=== PATIENT | female | born 1945 | race Caucasian/White ===

== ENCOUNTER → 2023-11-05 12:51 | Outpatient (REF) | payer MEDICARE, SELFPAY | LOC: DHCBS HW 12:51 | PROVIDERS: ATTENDING PHYSICIAN Internal Medicine Cardiovascular Disease; FAMILY PHYSICIAN Physician Assistant Medical | DX: I48.0 Paroxysmal atrial fibrillation (principal); I42.8 Other cardiomyopathies | CPT/HCPCS: 93306 ==

== ENCOUNTER 2024-11-11 17:59 | Inpatient (IN) | payer MEDICARE, SELFPAY ==
[2024-11-11 13:36] VITALS: BP 150/90
--- NOTE | 2024-11-11 13:59 | ED.GENMED ---
History of Present Illness
<Angeles Bear PA-C - Last Filed: 11/11/24 16:58>
General
Chief Complaint: Abdominal Pain
Source: patient and family (Daughter and grandaguhter at bedside)
Exam Limitations: none
Time Seen by Provider: 11/11/24 13:59
Nursing documentation reviewed up to this point in time: agreed with
History of Present Illness
History of Present Illness:
79-year-old female with history atrial fibrillation, hypothyroidism presenting to the emergency department with family due to upper abdominal pain associated with nausea and vomiting over the past 24 hours. Patient reports onset of upper abdominal
discomfort yesterday late morning. She describes it as sharp pain with some radiation to her back. She describes repetitive episodes of vomiting that is brown in color. She has not noticed any blood in her vomit. Patient denies any fevers
although states she is 'very chilly '. Patient now feels that the pain is spreading into her chest. Patient denies any shortness of breath. Patient denies any urinary symptoms.
Patient has been unable to keep down any food or liquid since prior to onset of symptoms.
Patient does have a history of a bowel obstruction which states felt somewhat similar.
Past History
<Evelyn Christina MD - Last Filed: 11/11/24 15:55>
Past History
ED Past Medical History: Arrthythmia, GERD, Hypothyroidism, Other (Arthritis) and Other (Fibromyalgia)
ED Past Surgical History: Cholecystectomy, Gynecological (Tubal ligation, hysterectomy), Orthopedic (Right hand carpal bone surgery, right knee arthroscopy) and Urological (Bladder repair x2)
Social History
Tobacco: Non-smoker
Alcohol: None
Drug: None
Personal: Single
Living: alone
Review of Systems
<Angeles Bear PA-C - Last Filed: 11/11/24 16:58>
Review of Systems
Allergies reviewed?: Yes
All Other Systems: ROS reviewed and negative except as documented in HPI and ROS
Phy Exam
<Angeles Bear PA-C - Last Filed: 11/11/24 16:58>
Physical Exam
Physical Exam:
Vitals: Hypertensive and tachycardic on arrival, otherwise vital signs stable.
General: Patient is mild discomfort due to pain.
Skin: Warm and dry, no rashes or lesions
Head: Normocephalic, atraumatic
Eyes: Dry mucous membranes. Sclera nonicteric. EOMs intact. No nystagmus.
Throat: Protecting airway
Neck: Normal ROM, no cervical spine tenderness, no meningismus
Cardiac: Tachycardic, normal rhythm, no murmurs.
Pulm: Normal respiratory effort, no wheezes, rales, rhonchi heard on exam.
Abdomen: Abdomen soft. Mildly distended. Mild epigastric tenderness without rebound tenderness or guarding.
Extremities: No evidence of cyanosis or edema
Neuro: AAOx3. Grossly intact.
Psychiatric: Normal affect.
Course
<Angeles Bear PA-C - Last Filed: 11/11/24 16:58>
Orders/Labs/Results
Orders:
Orders
11/11/24 13:39
EKG [Electrocardiogram (*1)] Urgent
Reason for Study: Abdominal Pain
EKG- Treatment ONCE
11/11/24 13:44
CMP [Comprehensive Metabolic Panel] Urgent
Complete Blood Count/With Diff Urgent
Lipase Urgent
Comment: ADD ON
11/11/24 14:27
Add On- LAB Urgent
Tests Added?: lipase
Ondansetron Injectable [Zofran] 4 mg IV NOW STA
Pantoprazole [Protonix IV] 40 mg IV NOW STA
11/11/24 14:29
CT Abd/pelvis W Iv Cont Urgent
Comment: unable to tolerate PO
Reason For Exam: epigastric pain, +N/+V
11/11/24 14:33
Acetaminophen 1000MG/100Ml [Ofirmev] 1,000 mg in 100 ml IV ONCE
Acetaminophen IV Indication:: ED Narcotic Naive Pt-ONCE
11/11/24 14:38
Lactic Acid Q4H
Comment: CANCEL 2nd LACTIC ACID IF 1st LACTIC ACID IS LESS THAN 2
Troponin I Urgent
Blood Culture Q30M
EDDIE Source: Blood/Venous
Specimen Description:
Blood Culture Q30M
EDDIE Source: Blood/Venous
Specimen Description:
11/11/24 14:41
0.9% Sodium Chloride 1000 ml [Nss] 1,000 ml IV BOLUS
11/11/24 16:01
HYDROmorphone [Dilaudid] 0.25 mg IV NOW STA
11/11/24 18:30
Lactic Acid Q4H
Comment: CANCEL 2nd LACTIC ACID IF 1st LACTIC ACID IS LESS THAN 2
Abnormal Lab Results
11/11/24 11/11/24
13:44 14:38
WBC 15.6 H 10^3/uL
(4.8-10.8)
Abs Immat Gran (auto) 0.1 H 10^3/uL
(0-0.05)
Absolute Neuts (auto) 13.5 H 10^3/uL
(1.4-6.5)
Absolute Monos (auto) 0.8 H 10^3/uL
(0.1-0.6)
Neutrophils % 86.5 H %
(42.2-75.2)
Lymphocytes % 7.9 L %
(20.5-51.1)
Sodium 134 L mmol/L
(135-145)
Chloride 90 L mmol/L
(98-107)
Carbon Dioxide 31 H mmol/L
(22-30)
BUN 39 H mg/dl
(7-17)
Creatinine 1.1 H mg/dL
(0.6-1.0)
Glucose 169 H mg/dl
(70-99)
Lactic Acid 2.2 H mmol/L
(0.7-2.0)
Calcium 10.5 H mg/dl
(8.4-10.2)
Total Bilirubin 1.9 H mg/dl
(0.2-1.3)
11/11/24 13:44
11/11/24 13:44
Vital Signs
Initial and Last Documented VS:
Initial Vital Signs
Temp Pulse Resp BP Pulse Ox
98.0 F 129 18 150/90 97
11/11/24 13:36 11/11/24 13:36 11/11/24 13:36 11/11/24 13:36 11/11/24 13:36
Last Documented Vital Signs
Temp Pulse Resp BP Pulse Ox
98.0 F 95 18 157/82 100
11/11/24 13:36 11/11/24 16:34 11/11/24 16:34 11/11/24 16:34 11/11/24 16:34
<Evelyn Christina MD - Last Filed: 11/11/24 15:55>
Orders/Labs/Results
Orders:
Orders
11/11/24 13:39
EKG [Electrocardiogram (*1)] Urgent
Reason for Study: Abdominal Pain
EKG- Treatment ONCE
11/11/24 13:44
CMP [Comprehensive Metabolic Panel] Urgent
Complete Blood Count/With Diff Urgent
Lipase Urgent
Comment: ADD ON
11/11/24 14:27
Add On- LAB Urgent
Tests Added?: lipase
Ondansetron Injectable [Zofran] 4 mg IV NOW STA
Pantoprazole [Protonix IV] 40 mg IV NOW STA
11/11/24 14:29
CT Abd/pelvis W Iv Cont Urgent
Comment: unable to tolerate PO
Reason For Exam: epigastric pain, +N/+V
11/11/24 14:33
Acetaminophen 1000MG/100Ml [Ofirmev] 1,000 mg in 100 ml IV ONCE
Acetaminophen IV Indication:: ED Narcotic Naive Pt-ONCE
11/11/24 14:38
Lactic Acid Q4H
Comment: CANCEL 2nd LACTIC ACID IF 1st LACTIC ACID IS LESS THAN 2
Troponin I Urgent
Blood Culture Q30M
EDDIE Source: Blood/Venous
Specimen Description:
Blood Culture Q30M
EDDIE Source: Blood/Venous
Specimen Description:
11/11/24 14:41
0.9% Sodium Chloride 1000 ml [Nss] 1,000 ml IV BOLUS
11/11/24 16:01
HYDROmorphone [Dilaudid] 0.25 mg IV NOW STA
11/11/24 18:30
Lactic Acid Q4H
Comment: CANCEL 2nd LACTIC ACID IF 1st LACTIC ACID IS LESS THAN 2
Abnormal Lab Results
11/11/24 11/11/24
13:44 14:38
WBC 15.6 H 10^3/uL
(4.8-10.8)
Abs Immat Gran (auto) 0.1 H 10^3/uL
(0-0.05)
Absolute Neuts (auto) 13.5 H 10^3/uL
(1.4-6.5)
Absolute Monos (auto) 0.8 H 10^3/uL
(0.1-0.6)
Neutrophils % 86.5 H %
(42.2-75.2)
Lymphocytes % 7.9 L %
(20.5-51.1)
Sodium 134 L mmol/L
(135-145)
Chloride 90 L mmol/L
(98-107)
Carbon Dioxide 31 H mmol/L
(22-30)
BUN 39 H mg/dl
(7-17)
Creatinine 1.1 H mg/dL
(0.6-1.0)
Glucose 169 H mg/dl
(70-99)
Lactic Acid 2.2 H mmol/L
(0.7-2.0)
Calcium 10.5 H mg/dl
(8.4-10.2)
Total Bilirubin 1.9 H mg/dl
(0.2-1.3)
11/11/24 13:44
11/11/24 13:44
Vital Signs
Initial and Last Documented VS:
Initial Vital Signs
Temp Pulse Resp BP Pulse Ox
98.0 F 129 18 150/90 97
11/11/24 13:36 11/11/24 13:36 11/11/24 13:36 11/11/24 13:36 11/11/24 13:36
Last Documented Vital Signs
Temp Pulse Resp BP Pulse Ox
98.0 F 95 18 157/82 100
11/11/24 13:36 11/11/24 16:34 11/11/24 16:34 11/11/24 16:34 11/11/24 16:34
<Angeles Bear PA-C - Last Filed: 11/11/24 16:58>
MDM/Problems Addressed
Differential Diagnosis Includes:
Not limited to: Gastritis, pancreatitis, bowel obstruction, peptic ulcer, gastric ulcer, etc.
MDM/Problems Addressed:
79-year-old female with epigastric abdominal pain associate with nausea/vomiting beginning yesterday. No fevers. Patient initially hypertensive and tachycardic on arrival although improved by my assessment. On exam�patient is holding emesis bag
with infrequent vomiting which is brown in color. Abdomen is soft, mildly distended with tenderness in epigastric region. No rebound tenderness or guarding. Cardio/pulmonary assessment unremarkable. Patient appears dry although is perfusing
well. Differential broad although concern for possible bowel obstruction given patient history and presentation today. Other consideration include gastritis, pancreatitis, gastric/peptic ulcer. Lower suspicion for cardiac etiology including ACS
although given report of chest discomfort will send troponin. Will check labs, lactic, lipase, abdomen/pelvis CT with IV contrast. Will give IV fluids and treat pain. Anticipate admission
Update: Labs reviewed. Leukocytosis of 15.6. Chemistry shows mild renal insufficiency on labs and dehydration likely secondary to hypovolemia and GI losses. Initial lactic of 2.2. Troponin 0.015 and noted. Do not suspect ACS. Vital signs have
normalized. CT pending.
Update 4:40 PM: CT report reviewed which shows small bowel obstruction. On reassessment�patient appears relatively well-appearing with very minimal vomiting in department. Do not feel NG tube is indicated at this time. Vital signs have normalized
and she is hemodynamic stable. Ultimately�patient will require admission to hospital. Patient accepted to hospital service in stable condition.
Chronic conditions affecting care:
History of bowel obstruction
Acute Exacerbation and/or Progression of Chronic Illness:
Small bowel obstruction
<Angeles Bear PA-C - Last Filed: 11/11/24 16:58>
*Radiology
Radiology exam reviewed: preliminary read by ED provider (CT reviewed by ne-distention of stomach and bowel loops concerning for small bowel obstruction) and radiology read reviewed
*Pulse Oximetry
Patient hypoxic: no
*EKG
Interpreted by ED Provider?: Yes
EKG Intrepretation Date: 11/11/24
Interpretation: abnormal
Comparison EKG: changes noted
Heart Rate: 125
Rate: tachycardiac
Rhythm: sinus
[place]: normal axis
Interval: normal QT interval
QRS Pattern: left vent hypertrophy
Ischemia: non-specific ST changes
*Gelatin Plant Supervisor Interpretation
Rate: Gelatin Plant Supervisor- N/A
*Critical Care Note
Total Time (30-74mins, 75-104mins- exclusive of procedures): Not Applicable
<Angeles Bear PA-C - Last Filed: 11/11/24 16:58>
Patient Management
Discussion with other providers: Hospitalist
Escalation/DeEscalation of care consider admission/obs:
Admit for small bowel obstruction, fluid resuscitation
ED Attending Note
<Evelyn Christina MD - Last Filed: 11/11/24 15:55>
ED Attending Note
Patient seen and examined by attending physician: Yes
I performed the substantive portion of visit, reviewed & personally made and approve the management plan that is documented in note by myself or YANELIS.: Yes
ED Attending Note:
patient is breathing comfortably and appears nontoxic but still can tenderness of upper abdomen. Awaiting Ct report
-
Portions of this chart may have been created with voice recognition software.� Occasional wrong word or��sound alike� substitutions may have occurred due to the inherent limitations of voice recognition software.
Discharge Plan
Departure
Patient Disposition: Admit
Date of Disposition: 11/11/24
Time of Disposition: 16:47
Presentation/result/management discussed w/ accepting MD/DO: Hospitalist
Discharge Problem:
SBO (small bowel obstruction)
Prescriptions:
No Action
aspirin 81 MG tablet,delayed release (DR/EC)
81 mg PO DAILY
atorvastatin [Lipitor] 40 mg Tablet
40 mg PO QPM
pantoprazole [Protonix] 40 mg Tablet,Delayed Release (Dr/Ec)
40 mg PO DAILY
cyanocobalamin (vitamin B-12) 1,000 mcg Capsule
1,000 mcg PO DAILY
donepezil [Aricept] 5 mg Tablet
5 mg PO HS
melatonin 3 mg Tablet
3 mg PO HS
sulfamethoxazole-trimethoprim [Bactrim DS] 800-160 mg tablet
1 tab PO BID 3 Days Qty: 6 0RF
levothyroxine 88 mcg tablet
88 mcg PO DAILY
mirtazapine 30 mg tablet
30 mg PO HS
metoprolol succinate 25 mg tablet extended release 24 hr
75 mg PO Q12H
Entresto 24-26 mg tablet
1 tab PO BID
phenazopyridine [Pyridium] 200 mg tablet
200 mg PO TID PRN (Reason: Urinary Pain)
Referrals:
Melida Ontiveros PA-C [Family Provider] -
Interventions
Interventions:
*Risk Screen - Suicide Last Done: 11/11/24 13:36
*General Assessment Last Done: 11/11/24 13:36
*ED COVID-19 Vaccine History Last Done: 11/11/24 13:36
Discharge Date and Time
Print Language: SWAZI
[2024-11-11 14:06] LABS: % Basophils 0.3 % (0-2); % Immature Granulocytes 0.4 % (0-0.5); % Lymphocytes 7.9 % (20.5-51.1); % Monocytes 4.9 % (1.7-9.3); % Neutrophils 86.5 % (42.2-75.2); Absolute Immature Granulocytes 0.1 10^3/uL (0-0.05); Absolute Lymphocytes 1.2 10^3/uL (1.2-3.4); Absolute Monocytes 0.8 10^3/uL (0.1-0.6); Absolute Neutrophils 13.5 10^3/uL (1.4-6.5); Hematocrit 44.3 % (37.0-47.0); Hemoglobin 14.9 g/dL (12.0-16.0); Mean Corp Hgb Conc. 33.6 g/dL (33.0-37.0); Mean Corpuscular Hgb 29.5 pg (27.0-31.0); Mean Corpuscular Volume 87.7 fL (81.0-99.0); Mean Platelet Volume 10.4 fL (7.4-10.4); Nucleated Red Blood Cells % 0 %; Platelet Count 324 10^3/uL (130-400); Red Blood Cell Count 5.05 10^6/uL (4.20-5.40); Red Cell Dist. Width 12.6 % (11.5-14.5); White Blood Cell Count 15.6 10^3/uL (4.8-10.8)
[2024-11-11 14:12] LABS: ALT (SGPT) 32 U/L (0-35); AST (SGOT) 35 U/L (14-36); Albumin 4.9 g/dl (3.5-5.0); Alkaline Phosphatase 98 U/L (38-126); Blood Urea Nitrogen 39 mg/dl (7-17); Calcium 10.5 mg/dl (8.4-10.2); Carbon Dioxide 31 mmol/L (22-30); Chloride 90 mmol/L (98-107); Glucose 169 mg/dl (70-99); Sodium 134 mmol/L (135-145); Total Bilirubin 1.9 mg/dl (0.2-1.3); Total Protein 8.2 g/dl (6.3-8.2); eGFR 50.48
[2024-11-11] MEDS: ZOFRAN 4 MG IV (14:44)
[2024-11-11] MEDS: OFIRMEV 100 IV (14:44)
[2024-11-11] MEDS: PROTONIX IV 40 MG IV (14:44)
[2024-11-11] MEDS: NSS 1000 IV ×2 (15:09→21:41)
[2024-11-11 15:29] LABS: Lactic Acid 2.2 mmol/L (0.7-2.0)
[2024-11-11 15:33] LABS: Lipase 134 U/L (23-300)
[2024-11-11 15:47] LABS: Troponin I 0.015 ng/ml
[2024-11-11] MEDS: DILAUDID 0.25 MG IV (16:04)
[2024-11-11 16:34] VITALS: BP 157/82
--- NOTE | 2024-11-11 16:56 | HPS.HSE ---
Family Physician
-
Family Physician: Melida Ontiveros PA-C
Chief Complaint
-
abdominal pain
History of Present Illness
Patient is a 79-year-old female with past medical history significant for hypertension, atrial fibrillation, CAD, hypothyroidism and GERD who presented to [facility] ED for evaluation of abdominal pain associated with nausea and vomiting.
Patient reports that she started with abdominal discomfort yesterday that led to poor appetite and nausea with emesis yesterday afternoon. She reports 2 BMs yesterday one small and one large with soft formed stool. Patient reports pain today
increased in the midupper abdomen and was severe. She does not report anything that aggravates or alleviates symptoms. Patient denies any fever, chills, cough, chest pain, constipation, diarrhea or urinary symptoms.
Medical History
Past Medical History
Past Medical History: Reports Other
Additional Past Medical History:
benign hypertension
paroxysmal atrial fibrillation
CAD
hyperlipidemia
hypothyroidism
GERD
Hx small bowel obstruction
Past Surgical History: Reports Other
Additional Past Surgical History:
bladder x2
right knee orthoscopic meniscus removal
hysterectomy
carpal tunnel surgery right hand
cholecystectomy
tubal ligation
bowel obstruction
Social History
Tobacco: Former Smoker
Alcohol: None
Drug: None
Living: Alone (granddaughter comes as paid aide daily to assist with ADLs)
Employment: Retired
Family History
Family History: Unable to Obtain
Allergies / Home Medications
Allergies reflects when Allergies were last updated in [employer].
Home Medications with original date entered in [employer]
Allergy/Medication List:
Allergies
Allergy/AdvReac Type Severity Reaction Status Date / Time
haloperidol [From Haldol] Allergy elevated Verified 11/11/24 13:38
heart rate
morphine Allergy Hallucinati Verified 11/11/24 13:38
ons
Home Medications
aspirin 81 mg tablet,delayed release 81 mg PO DAILY 11/21/15
atorvastatin 40 mg tablet (Lipitor) 40 mg PO QPM 06/02/23
cyanocobalamin (vitamin B-12) 1,000 mcg capsule 1,000 mcg PO Q48H 06/02/23
pantoprazole 40 mg tablet,delayed release (Protonix) 40 mg PO DAILY 06/02/23
levothyroxine 88 mcg tablet 88 mcg PO DAILY 06/03/23
Antifungal 1 applic topical DAILYPRN PRN under breasts/behind ear 11/11/24
Lactobac no.2-Bifidobac no.1-S. thermo 112.5 billion cell capsule (Visbiome) 1 cap PO DAILY 11/11/24
cholecalciferol (vitamin D3) 25 mcg (1,000 unit) tablet (Vitamin D3) 25 mcg PO DAILY 11/11/24
clonazepam 0.5 mg tablet 0.5 mg PO BID 11/11/24
d-mannose 500 mg capsule 500 mg PO BID 11/11/24
gabapentin 300 mg capsule 300 mg PO HS 11/11/24
metoprolol succinate 100 mg tablet,extended release 24 hr 100 mg PO BID 11/11/24
peg 400-propylene glycol (PF) 0.4 %-0.3 % eye drops in a dropperette (Systane (PF)) 1 drp BOTH EYES BID 11/11/24
sacubitril 49 mg-valsartan 51 mg tablet (Entresto) 1 tab PO BID 11/11/24
venlafaxine 37.5 mg capsule,extended release 24 hr 37.5 mg PO HS 11/11/24
venlafaxine 75 mg capsule,extended release 24 hr 75 mg PO HS 11/11/24
vibegron 75 mg tablet (Gemtesa) 75 mg PO DAILY 11/11/24
Review of Systems
-
History Source: Patient
Constitutional: Reports No Symptoms
EENT: Reports No Symptoms
Respiratory: Reports No Symptoms
Cardiac: Reports No Symptoms
Abdomen/GI: Reports Abdominal Pain, Nausea and Vomiting
: Reports No Symptoms
Musculoskeletal: Reports No Symptoms
Skin: Reports No Symptoms
Neurological: Reports No Symptoms
Endocrine: Reports No Symptoms
Hematologic/Lymphatic: Reports No Symptoms
Psych: Reports No Symptoms
Physical Exam
Vital Signs
Vital Signs
Temp Pulse Resp BP Pulse Ox
98.0 F 95 18 157/82 100
11/11/24 13:36 11/11/24 16:34 11/11/24 16:34 11/11/24 16:34 11/11/24 16:34
Physical Exam
General: Well Developed, Well Nourished, No Apparent Distress, Conversant and Pain
HEENT: NormoCephalic, Moist mucous membranes, Atraumatic, [place] Conjunctivae, Nose Appears Normal and Ears Appear Normal
Respiratory: Clear, Non Labored Respirations and Decreased Breath Sounds
Cardiac: S1/S2 and Regular Rhythm; No Murmur, Rub or Gallop
GI: Soft, Tender and Distended; No Organomegaly
Rectal: Deferred by Provider
Genito-urinary: Deferred by me
Musculoskeletal: No Clubbing, No Cyanosis and No Edema
Skin: Warm and IV/Catheter Site; No Rash
Neuro: Awake, Alert and Nonfocal/grossly intact
Psych: Calm
Laboratory Results
-
11/11/24 13:44
11/11/24 13:44
Laboratory Results
Lactic Acid 2.2 mmol/L (0.7-2.0) H 11/11/24 14:38
Total Bilirubin 1.9 mg/dl (0.2-1.3) H 11/11/24 13:44
AST 35 U/L (14-36) 11/11/24 13:44
ALT 32 U/L (0-35) 11/11/24 13:44
Alkaline Phosphatase 98 U/L (38-126) 11/11/24 13:44
Troponin I 0.015 ng/ml 11/11/24 14:38
Lipase 134 U/L (23-300) 11/11/24 13:44
Data Reviewed
-
CT Scan: Report Reviewed by me (Abd/Pelvis: Small bowel obstruction. Uncertain etiology. Suggest a transition in the midline/right para midline mid to lower anterior abdomen. Mild distal esophageal wall thickening. Possible esophagitis.)
Lab Data: Labs Reviewed by me (WBC 15.6, BUN 39, Creat 1.1, Lactic 2.2, )
Impression/Plan
-
IMPRESSION/PLAN:
#small bowel obstruction
abdominal pain, nausea and vomiting x2 days
Abd/Pelvis CT: Small bowel obstruction. Uncertain etiology. Suggest a transition in the midline/right para midline mid to lower anterior abdomen.
Mild distal esophageal wall thickening. Possible esophagitis.
- admit to med/surg
- NPO
- IVF
- consult surgery
- consider NGT
#acute kidney injury
BUN 39, Creat 1.1
- javon IVF
#benign hypertension
- continue metoprolol
#paroxysmal atrial fibrillation
EKG: SINUS TACHYCARDIA
LEFT VENTRICULAR HYPERTROPHY WITH REPOLARIZATION ABNORMALITY ( Janneth Larry )
- continue metoprolol
#CAD
#hyperlipidemia
- continue aspirin, and atorvastatin
#HFrEF
- continue Entresto
- daily weights
#hypothyroidism
- continue levothyroxine
#GERD
- continue pantoprazole
#anxiety/depression
- continue clonazepam and venlafaxine
#overactive bladder
- continue vibegron
Code status: Full code
DVT Prophylaxis: SCDs
--- NOTE | 2024-11-11 17:27 | W.PN.UPDATE ---
Update Note
Progress Note Update
This is an addendum to H&P written by FITNESS TECHNICIAN Jordyn Gallegos
I saw and examined the patient.
The FITNESS TECHNICIAN's note was reviewed and I agree with the note.
Comment:
Ms. Alcon Aguilar is a 79 yo woman with hx atrial fibrillation, HFmrEF, GERD, who presents to the ER with upper abdominal pain associated with nausea and vomiting.
Triage VS: T 98, P 129, RR 18, BP 150/90, SpO2 97%
On exam patient is awake, alert, in no distress. Chest clear. Abdomen with mild tenderness, distention, no rebound/guarding. No LE swelling
LABS: WBC 15.6, Hg 14.9, PLT 324, Na 134, K+ 4.0, Cl 90, BUN 39, Cr 1.1, Glucose 169, Lactate 2.2, Ca 10.5, T. Bili 1.9, AST 35, ALT 32, Trop 0.015
CT:
IMPRESSION:
Small bowel obstruction. Uncertain etiology. Suggest a transition in the midline/right para midline mid to lower anterior abdomen.
Mild distal esophageal wall thickening. Possible esophagitis.
Small Bowel Obstruction
-admit to telemetry
-NPO, IVF
-NGT if nausea worsens
-IV Zofran PRN
-GS consult
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
-not on diuretics at home
-gentle IVF, monitor volume status closely
-POLE TRUCK DRIVER Regimen: Entresto, Metop XL
Lactic Acidosis
-IVF as above, trend
CASPER
-IVF as above
Paroxysmal Afib
-not on AC
-continue POLE TRUCK DRIVER Metoprolol
Anxiety/Depression - POLE TRUCK DRIVER REgimen
remainder of plan per FITNESS TECHNICIAN note
[2024-11-11] MEDS: COMPAZINE 5 MG IV (18:42)
[2024-11-11 19:22] VITALS: BP 163/85
[2024-11-11 20:49] VITALS: BMI 27.0
[2024-11-11 21:00] VITALS: BP 155/102; BMI 27.8
[2024-11-11] MEDS: ENTRESTO 49 MG/51 MG 1 TAB PO (21:16)
[2024-11-11] MEDS: TOPROL XL 100 MG PO (21:16)
[2024-11-11] MEDS: KLONOPIN 0.5 MG PO (21:16)
[2024-11-11] MEDS: LIPITOR 40 MG PO (21:16)
[2024-11-11] MEDS: EFFEXOR XR 75 MG PO (21:17)
[2024-11-11] MEDS: EFFEXOR XR 37.5 MG PO (21:17)
[2024-11-11] MEDS: NEURONTIN 300 MG PO (21:17)
[2024-11-11] MEDS: REFRESH EYE DROPS (PF) 1 DROPS BOTH EYES (21:17)
[2024-11-11 21:22] VITALS: BMI 27.8
[2024-11-11] MEDS: DESENEX/MITRAZOL/ZEASORB 1 APPLIC TOPICAL (21:58)
[2024-11-11] MEDS: CHLORASEPTIC/SORE THROAT SPRAY 1 SPRAY PO (22:10)
[2024-11-11 22:21] LABS: Lactic Acid 0.9 mmol/L (0.7-2.0)
[2024-11-11] MEDS: NSS 500 IV (23:42)
[2024-11-12] VITALS (19 sets, daily range): BP systolic 83–151; BP diastolic 49–93
--- NOTE | 2024-11-12 00:06 | PTCARENOTE ---
Patient arrived to unit from ED via stretcher. Pt. pulled over from stretcher to bed in room 337-1 on . Patient with c/o nausea and brown emesis. NGT order noted. Patient initially refused. LAYLA Chen notified. LAYLA came to floor to
discuss NGT with patient. Patient continued to refuse. Patient continued to vomit brown colored emesis. Patient now agreeable to NGT. NGT placed with immediate drainage of 300 mL brown output. Patient tolerated NGT placement. Oriented to unit. Call
rubio within reach. Plan of care ongoing.
[2024-11-12] MEDS: DILAUDID 0.25 MG IV ×3 (03:22→21:04)
[2024-11-12] MEDS: SYNTHROID 88 MCG PO (05:36)
[2024-11-12] MEDS: CHLORASEPTIC/SORE THROAT SPRAY 1 SPRAY PO (05:36)
[2024-11-12 06:28] LABS: Hematocrit 39.6 % (37.0-47.0); Hemoglobin 13.5 g/dL (12.0-16.0); Mean Corp Hgb Conc. 34.1 g/dL (33.0-37.0); Mean Corpuscular Hgb 29.7 pg (27.0-31.0); Mean Platelet Volume 10.8 fL (7.4-10.4); Platelet Count 299 10^3/uL (130-400); Red Blood Cell Count 4.55 10^6/uL (4.20-5.40); Red Cell Dist. Width 12.8 % (11.5-14.5); White Blood Cell Count 12.4 10^3/uL (4.8-10.8)
[2024-11-12 06:49] LABS: Blood Urea Nitrogen 42 mg/dl (7-17); Calcium 9.7 mg/dl (8.4-10.2); Carbon Dioxide 27 mmol/L (22-30); Chloride 96 mmol/L (98-107); Estimated Creatinine Clearance 39 ml/min; Glucose 107 mg/dl (70-99); Potassium 4.3 mmol/L (3.5-5.1); Sodium 135 mmol/L (135-145)
[2024-11-12] MEDS: PROTONIX 40 MG PO (07:44)
[2024-11-12] MEDS: TOPROL XL 100 MG PO (07:44)
[2024-11-12] MEDS: VITAMIN D3 (cholecalciferol) 25 MCG PO (07:44)
[2024-11-12] MEDS: REFRESH EYE DROPS (PF) 1 DROPS BOTH EYES ×2 (07:44→19:18)
[2024-11-12] MEDS: KLONOPIN 0.5 MG PO (07:44)
[2024-11-12] MEDS: VITAMIN B-12 1000 MCG PO (07:44)
[2024-11-12] MEDS: DESENEX/MITRAZOL/ZEASORB 1 APPLIC TOPICAL ×2 (07:45→19:57)
[2024-11-12] MEDS: ASPIR LOW (ENTERIC COATED) 81 MG PO (07:45)
[2024-11-12] MEDS: VISBIOME 1 CAP PO (07:45)
[2024-11-12] MEDS: ENTRESTO 49 MG/51 MG PO (08:32)
[2024-11-12] MEDS: LOPRESSOR 5 MG IV ×4 (08:40→23:25)
[2024-11-12] MEDS: NSS 1000 IV ×2 (10:10→16:21)
--- NOTE | 2024-11-12 10:22 | CON.CAR ---
Addendum entered and electronically signed by Lamont Ortega MD 11/12/24 11:11:
79 yo woman with Hx of NICM with improved EF, now with SBO and AF with RVR.
Documentation truncated due to failure of Dragon.
Agree with findings of MB below. Data, exam, independently reviewed and confirmed by me
ECG AF with RVR, aberrancy, AL and inf ST depression - check troponin
Rx with IV heparin, amio IV. NSS bolus.
Eventual DOAC and oral rate control agents if needed, probably oral amio.
If needed add IV diltiazem and add phenylephrine if hypotensive
Await surgical eval.
Check echo
Original Note:
Consultation
Consultation Request
Date/Time Consultation Performed: 11/12/24
Requesting Provider: Dr. Pedro
Performing Provider: Alejandrina Powell PA-C for Dr. ALIYAH Ortega
Reason for Consultation: afib with RVR
Medical History
-
Chief Complaint: abd pain
History of Present Illness:
Patient is an 79 yo F with PMH of NICM with improved EF to 45% by echo 10/2023, PAF not on OAC due to prior low burden and fall risk, GERD, asthma, HLD, HTN who presented to due to abd pain which started evening of 11/10. She also reports several
episodes of brown colored vomit. She reports a history of SBO years ago. She has history of hysterectomy, tubal ligation, and cholecystectomy in past. She had CTAP which showed SBO. NGT was placed around 4AM. Around 8:30AM was noted to go into afib
with RVR, HRs close to 200BPM at times. Patient reports no feelings of palpitations, CP, SOB. Cardiology consulted for urgent evaluation.
PMH:
NICM with improved EF to 45% by echo 10/2023
PAF not on OAC due to prior low burden and fall risk
Coronary artery calcifications by imaging
GERD
asthma
HTN
HLD
Hypothyroidism
Mild dementia
History of chronic UTIs
History of SBO s/p KATE
Past Medical History
Past Medical History: Other (in HPI)
Social History
Tobacco: Former Smoker
Alcohol: None
Living: Alone
Family History
Family History: CAD and Cancer
Allergies / Home Medications
Allergy/AdvReac Type Severity Reaction Status Date / Time
haloperidol [From Haldol] Allergy elevated Verified 11/11/24 13:38
heart rate
morphine Allergy Hallucinati Verified 11/11/24 13:38
ons
�Medication �Instructions �Recorded �Confirmed �Type
aspirin 81 mg tablet,delayed 81 mg PO DAILY 11/21/15 11/11/24 History
release
atorvastatin 40 mg tablet (Lipitor) 40 mg PO QPM 06/02/23 11/11/24 History
cyanocobalamin (vitamin B-12) 1,000 mcg PO Q48H 06/02/23 11/11/24 History
1,000 mcg capsule
pantoprazole 40 mg tablet,delayed 40 mg PO DAILY 06/02/23 11/11/24 History
release (Protonix)
levothyroxine 88 mcg tablet 88 mcg PO DAILY 06/03/23 11/11/24 History
Antifungal 1 applic topical DAILYPRN PRN 11/11/24 11/11/24 History
under breasts/behind ear
Lactobac no.2-Bifidobac no.1-S. 1 cap PO DAILY 11/11/24 11/11/24 History
thermo 112.5 billion cell capsule
(Visbiome)
cholecalciferol (vitamin D3) 25 25 mcg PO DAILY 11/11/24 11/11/24 History
mcg (1,000 unit) tablet (Vitamin
D3)
clonazepam 0.5 mg tablet 0.5 mg PO BID 11/11/24 11/11/24 History
d-mannose 500 mg capsule 500 mg PO BID 11/11/24 11/11/24 History
gabapentin 300 mg capsule 300 mg PO HS 11/11/24 11/11/24 History
metoprolol succinate 100 mg 100 mg PO BID 11/11/24 11/11/24 History
tablet,extended release 24 hr
peg 400-propylene glycol (PF) 0.4 1 drp BOTH EYES BID 11/11/24 11/11/24 History
%-0.3 % eye drops in a dropperette
(Systane (PF))
sacubitril 49 mg-valsartan 51 mg 1 tab PO BID 11/11/24 11/11/24 History
tablet (Entresto)
venlafaxine 37.5 mg 37.5 mg PO HS 11/11/24 11/11/24 History
capsule,extended release 24 hr
venlafaxine 75 mg capsule,extended 75 mg PO HS 11/11/24 11/11/24 History
release 24 hr
vibegron 75 mg tablet (Gemtesa) 75 mg PO DAILY 11/11/24 11/11/24 History
Review of Systems
-
History Source: Patient
All other systems: Negative unless noted
Physical Exam
Vital Signs
Temp Pulse Resp BP Pulse Ox
98.6 F 108 18 116/49 95
11/12/24 08:43 11/12/24 08:43 11/12/24 08:43 11/12/24 08:43 11/12/24 08:43
GEN: No distress, awake, alert, oriented x3. NGT in place
HEENT: supple, anicteric, mmm, eomi
LUNGS: CTA B/L, no wheezes/rales
CV: Irreg irreg, S1/S2, no murmur
ABD: soft, mild tenderness to palpation
EXT: No cyanosis, clubbing, edema
NEURO: Gross non-focal
SKIN: Warm, pink, dry. No rash
Lab Results
11/12/24 05:52
11/12/24 05:52
Troponin I 0.015 ng/ml 02/13/25 14:38
Impression / Plan
-
Primary [employer]: Dr. ALIYAH Ortega
Assessment:
Presentation with abd pain, vomiting
SBO
PAF with RVR
Relative hypotension associated with above
NICM with improved EF to 45% by echo 10/2023
PAF not on OAC due to prior low burden and fall risk
Coronary artery calcifications by imaging
GERD
asthma
HTN
HLD
Hypothyroidism
Mild dementia
History of chronic UTIs
History of SBO s/p KATE
ECHO 10/2023: EF 46%, mild global hypokinesis, grade 1 diastolic dysfunction
Plan:
-Patient presents with abd pain and vomiting and found by CTAP to have SBO. NGT in place. awaiting surgical evaluation
-around 8:30AM was noted to go into afib with RVR on tele. rates remain rapid despite several doses of IV lopressor and with relative hypotension. patient asymptomatic
-cardiology asked to see patient urgently. planned for transfer to IMU
-will give IV amiodarone 150cc bolus and start IV amio gtt
-[id number] score of 4 for age, female, HTN. previously was not on OAC due to low afib burden and fall risk. will start IV heparin and will likely need transition to OAC given episode
-will also give 500cc IVF bolus and follow BPs
-last echo from 10/2023 as above, consider repeating when HRs improved
-prior imaging with evidence of coronary calcifications and EKG in rapid afib with inferior, and anterolateral ST depressions. no CP. would consider OP stress testing.
-d/w nursing, hospitalist.
Data Reviewed
-
EKG: Tracing Personally Visualized and interpreted
CT Scan: Report Reviewed by me
Medical Tests (Nuc Med, Echo etc): Report Reviewed by me
Labs: Labs Reviewed by me
Old Records: Reviewed
--- NOTE | 2024-11-12 10:36 | W.PN.HOSP.TC ---
Today's Communication/Plan
-
see outlined plan
Assessment / Plan
Assessment / Plan
Assessment:
acute small bowel obstruction
Lactic acidosis from bowel obstruction
- CT: Small bowel obstruction. Uncertain etiology. Suggest a transition in the midline/right para midline mid to lower anterior abdomen.
- NPO, IVF
- pain control, anti-emetics
- NGT placed 2/14 AM for recurrent vomiting
- GS consulted
Parox A.fib with RVR
- likely related to acute illness, lack of oral BB. Electrolytes ok
- marginal BPs; stop IV Lopressor as patient unstable BP and HRs >200
- Amio bolus + Amiodarone drip ordered urgently
- IV heparin started - requires intensive monitoring of PTTs. noted not on AC long-term due to prior assessment of falls
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
- s/p IV Bolus and now in maintenance
- monitor volume status closely
- holding GDMT (NPO): Metoprolol and Entresto
CAD
HLD
- hold ASA/Statin
Essential HTN
- marginal BP in setting of Afib; holding Metoprolol and Entresto
CASPER
- improved with IVF, monitor labs
Anxiety/Depression
- holding Clonazepam/Venlafaxine
hypothyroidism - oral replacement on hold, may need IV
GERD
- IV PPI
DVT ppx: IV Heparin
Code: Full
Total Critical Care Time 45 minutes. I was immediately available to the patient and staff. I personally examined, reviewed labs, diagnostic images/reports, interpretations, treatment plans, discussed patient care with other providers and family
or caregivers (if patient is unable to make decisions), entered orders as appropriate and documented the medical record.
Anticipated Discharge: > 48 hours
Subjective/Interval History
-
Date of Service: November 12, 2024
NG tube placed this morning
now in Rapid Afib - marginal BPs. asymptomatic without CP, SOB, palps
Urgent Cardiology evaluation with initiation of IV Heparin, IV Amiodarone and IVF
Objective Data
-
Labs:
Laboratory Results
11/12/24 11/12/24
05:52 10:11
WBC 12.4 H
Hgb 13.5
Hct 39.6
Plt Count 299
APTT Pending
Sodium 135
Potassium 4.3
Chloride 96 L
Carbon Dioxide 27
BUN 42 H
Creatinine 1.0
Glucose 107 H
Calcium 9.7
Vital Signs:
Vital Signs
Temp Pulse Resp BP Pulse Ox
98.6 F 108 18 116/49 95
11/12/24 08:43 11/12/24 08:43 11/12/24 08:43 11/12/24 08:43 11/12/24 08:43
I&O
11/11/24 11/12/24 11/13/24
06:59 06:59 06:59
Output Total 1600 / 1600
Balance -1600 / -1600
Physical Exam
-
General: No Apparent Distress
HEENT: Normocephalic, Atraumatic and Other (+NGT)
Respiratory: Clear to Auscultation; Negative Wheezes
Cardiac: Irregular Rhythm and Tachycardic
GI: Nontender and Distended
Genito-urinary: No Costovertebral Tender
Neuro: AO x 3
Psych: Calm
Data Reviewed
-
Critical Care Time (in minutes): 45
Labs: Labs Reviewed by me
[2024-11-12] MEDS: NSS 500 IV (10:45)
[2024-11-12] MEDS: CORDARONE 103 MG IV (11:01)
[2024-11-12] MEDS: CORDARONE 518 MG IV (11:15)
--- NOTE | 2024-11-12 11:25 | CM ---
Pt seen bedside. Initial assessment completed. Admitted for abdominal pain. Pt transferred to IMU.
Pt lives alone in a second flt apartment- no elevators. Pt's granddaughter helps pt every day, Friday-Friday from 6:30am-3:30 pm. Pt's granddaughter assists pt w/ meals throughout the day, light housekeeping and exercises. Pt uses a walker to
ambulate, pt has an emergency alert necklace that she does not wear but is encouraged to do so by her daughters.
Pt prev was at [facility] about 7-9 years ago, pt has VN/PT in the past, doesn't recall the provider.
Address, points of contact and insurance verified
PCP: Dr. Mata
Pharmacy: [facility]
Plan: CM will cont to follow hospital course
--- NOTE | 2024-11-12 11:27 | TRANSFER ---
Rec'd pt from 3W. arrived to IMU with A fib, RVR HR 180s to 200s. Hypotensive. MD aware. HR responded to amio bolus with improved rate 140s. bolus infusing. Heparin drip ordered. Pt anxious but responds to education efforts. Placed on 2L NC for O2
sats 89% on RA.
--- NOTE | 2024-11-12 11:28 | PTCARENOTE ---
pt PO meds dc'd by Dr. Pedro, IV med orders placed, order to place pt on tele. pt placed on tele at 8:30, pt immediately found to be in afib RVR hr in the 180s-200s. This nurse notified pharmacist to have meds approved, Dr. Pedro made aware via tt
by pharmacist about current HR and rhythm. 1x dose of 5mg metoprolol IV administered, hr reached 147 at the lowest and climbed back up to 160s-210s within an hour, pt still afib RVR on the monitor. ordered second dose of 5mg Lopressor IV,
this nurse went to administer but pt bp was found to be 96/83 automatic. attempted to get a manual bp, this nurse and another nurse were unsuccessful, unable to hear anything. Dr. Pedro made aware via tt, Dr. Pedro responded and came to see pt at
the bedside. Okay to give 2nd dose of Lopressor per Dr. Pedro. administered. cardiology seen pt at the bedside. pt transferred to U [id number], report given to nurse prior to taking pt to unit. Pt transferred by this nurse and eleonora Whiting pt placed on
code cart monitor for transfer, IV fluid bolus running.
[2024-11-12 11:43] LABS: APTT 28.4 Sec (23.4-35.0)
[2024-11-12] MEDS: HEPARIN 25000 UNITS/250 ML IV (11:48)
--- NOTE | 2024-11-12 13:25 | CON.GS ---
Addendum entered and electronically signed by Curt Jacques MD 11/12/24 14:02:
Okay for anticoagulation, appreciate IV heparin drip. Please do not use long-acting anticoagulation until surgery signs off as she may need to be taken to the OR.
Original Note:
Consultation
-
Date/Time Consultation Requested: 11/11/2024 at 5 PM
Date/Time Consultation Performed: 11/12/2024 at 8 AM
Requesting Provider: Hospitalist
Performing Provider: Dr. Jacques
Reason for Consultation: Small bowel obstruction
Medical History
-
Chief Complaint: Abdominal pain, nausea vomiting
History of Present Illness:
This is an 79-year-old female with a history significant for atrial fibrillation not on anticoagulation, CAD, hypothyroidism, GERD, mini, post and previous bowel obstructions. The patient is a poor historian but states that she started having
abdominal discomfort yesterday which led to a poor appetite and nausea as well as emesis yesterday afternoon. She states that her pain has improved since placement of the NG tube. The patient denies Fever, Chest Pain, Shortness Of Breath, changes
in urinary and bowel habits, unintentional weight loss.
Past Medical History
Past Medical History: Other (Atrial fibrillation, CAD, hypertension, hyperlipidemia, hypothyroidism, GERD, SBO)
Past Surgical History: Other (Hysterectomy, cholecystectomy, tubal ligation, bowel obstruction)
Social History
Tobacco: Former Smoker
Alcohol: None
Drug: None
Living: Alone
Family History
Family History: Reviewed & Not Pertinent
Allergies / Home Medications
Allergy/AdvReac Type Severity Reaction Status Date / Time
haloperidol [From Haldol] Allergy elevated Verified 11/11/24 13:38
heart rate
morphine Allergy Hallucinati Verified 11/11/24 13:38
ons
�Medication �Instructions �Recorded �Confirmed �Type
aspirin 81 mg tablet,delayed 81 mg PO DAILY 11/21/15 11/11/24 History
release
atorvastatin 40 mg tablet (Lipitor) 40 mg PO QPM 06/02/23 11/11/24 History
cyanocobalamin (vitamin B-12) 1,000 mcg PO Q48H 06/02/23 11/11/24 History
1,000 mcg capsule
pantoprazole 40 mg tablet,delayed 40 mg PO DAILY 06/02/23 11/11/24 History
release (Protonix)
levothyroxine 88 mcg tablet 88 mcg PO DAILY 06/03/23 11/11/24 History
Antifungal 1 applic topical DAILYPRN PRN 11/11/24 11/11/24 History
under breasts/behind ear
Lactobac no.2-Bifidobac no.1-S. 1 cap PO DAILY 11/11/24 11/11/24 History
thermo 112.5 billion cell capsule
(Visbiome)
cholecalciferol (vitamin D3) 25 25 mcg PO DAILY 11/11/24 11/11/24 History
mcg (1,000 unit) tablet (Vitamin
D3)
clonazepam 0.5 mg tablet 0.5 mg PO BID 11/11/24 11/11/24 History
d-mannose 500 mg capsule 500 mg PO BID 11/11/24 11/11/24 History
gabapentin 300 mg capsule 300 mg PO HS 11/11/24 11/11/24 History
metoprolol succinate 100 mg 100 mg PO BID 11/11/24 11/11/24 History
tablet,extended release 24 hr
peg 400-propylene glycol (PF) 0.4 1 drp BOTH EYES BID 11/11/24 11/11/24 History
%-0.3 % eye drops in a dropperette
(Systane (PF))
sacubitril 49 mg-valsartan 51 mg 1 tab PO BID 11/11/24 11/11/24 History
tablet (Entresto)
venlafaxine 37.5 mg 37.5 mg PO HS 11/11/24 11/11/24 History
capsule,extended release 24 hr
venlafaxine 75 mg capsule,extended 75 mg PO HS 11/11/24 11/11/24 History
release 24 hr
vibegron 75 mg tablet (Gemtesa) 75 mg PO DAILY 11/11/24 11/11/24 History
Review of Systems
-
All other systems: Negative unless noted
A 10 point review of systems was completed, and was negative except as per HPI.
Physical Exam
Vital Signs
Temp Pulse Resp BP Pulse Ox
98.1 F 166 19 83/53 95
11/12/24 11:05 11/12/24 11:05 11/12/24 11:05 11/12/24 11:05 11/12/24 08:43
11/11/24 11/12/24 11/13/24
06:59 06:59 06:59
Actual Weight 66.735 kg
Body Mass Index (BMI) 27.8
Lab Results
11/12/24 05:52
11/12/24 05:52
WBC 12.4 10^3/uL (4.8-10.8) H 11/12/24 05:52
Hgb 13.5 g/dL (12.0-16.0) 11/12/24 05:52
Hct 39.6 % (37.0-47.0) 11/12/24 05:52
Plt Count 299 10^3/uL (130-400) 11/12/24 05:52
Abs Immat Gran (auto) 0.1 10^3/uL (0-0.05) H 11/11/24 13:44
Neutrophils % 86.5 % (42.2-75.2) H 11/11/24 13:44
Physical Exam
General: Well Developed
HEENT: Normocephalic
Respiratory: Non Labored Respirations
GI: Soft, Non Tender and Distended
Data Reviewed
-
CT Scan: Image Personally Visualized and interpreted, Report Reviewed by me, Discussed with Physician and Discussed with Patient
Labs: Labs Reviewed by me and Discussed with Patient
Total Time Spent with Patient (in minutes): 60
Assessment / Plan
-
This is an 79-year-old female with a history significant for hypertension, atrial fibrillation, CAD, GERD with a history of total abdominal hysterectomy, cholecystectomy tubal ligation and surgery for prior bowel obstruction who presents with a
recurrent small bowel obstruction likely adhesive. Patient clinically stable but did go into atrial fibrillation with RVR and transferred to the ICU for further care.
Management of A-fib per primary.
N.p.o., continue NG tube to low intermittent wall suction.
Trend and replete electrolytes as able.
Will plan for a small bowel follow-through when clinically stable
--- NOTE | 2024-11-12 14:34 | PTCARENOTE ---
Pt converted to Sinus Tach, HR 130s, BP 119/66. confirmed with EKG and updated Dr. Pedro and Alejandrina Holbrook, Carlitos PA
[2024-11-12] MEDS: ZOFRAN 4 MG IV ×2 (18:00→23:35)
--- NOTE | 2024-11-12 18:24 | PTCARENOTE ---
Pt became naesous on hour 4 of obstruction series requiring suction to be restarted. zofran given. HR improved to 97, bp stable.
[2024-11-12 19:16] LABS: APTT 58.6 Sec (23.4-35.0)
[2024-11-13] VITALS (25 sets, daily range): BP systolic 116–154; BP diastolic 65–109; BMI 27.8
[2024-11-13] MEDS: DILAUDID 0.25 MG IV ×4 (00:52→21:01)
[2024-11-13] MEDS: CHLORASEPTIC/SORE THROAT SPRAY 1 SPRAY PO ×2 (00:57→10:17)
[2024-11-13 02:07] LABS: APTT 102.6 Sec (23.4-35.0)
--- NOTE | 2024-11-13 02:21 | PTCARENOTE ---
Addendum entered by Yanci Fuentes RN 11/13/24 07:23:
at 0430 pt started vomitted. flush ngt - to improve flow and s/p REWINDER OPERATOR HELPER Tony 1xdose of Compazine w/+eff.
Original Note:
2000 pt is forgetful and anxious; hx of dementia. pt is on 2L at 92%. NGT in place. pt continues on Amio gtt at 0.5mg/min and heparin adjusted to 1000units/hr 10ml/hr based off of PTT result. IVF at 80ml/hr. pt ST on monitor FN=150's
2100 administered IV Dilaudid for c/o pain 05/08 w/ +eff; however pt destated to 87% on 2;. pt placed on 4L O2 at SpO2=93%. pt alseep.
2330 WP=085's administered scheduled IV lopressor w/ =eff. HR=90-100's. pt nauseous administered prn Zofran.
0100 pt awake and anxious and c/o abdominal pain - administered prn Dilaudid. pt destated to 87% on 4L but did come back up to 90-92% on 4lO2. pt resting comfortably in bed - s/w KATE Jimenez re: pain management, anxiety, and SpO2. IVF rate adjusted. to
follow up if pt c/o pain again.
[2024-11-13] MEDS: COMPAZINE 5 MG IV (05:03)
[2024-11-13] MEDS: NSS 1000 IV (05:04)
[2024-11-13 05:16] LABS: ALT (SGPT) 23 U/L (0-35); AST (SGOT) 51 U/L (14-36); Albumin 3.7 g/dl (3.5-5.0); Alkaline Phosphatase 79 U/L (38-126); Blood Urea Nitrogen 45 mg/dl (7-17); Calcium 9.5 mg/dl (8.4-10.2); Carbon Dioxide 29 mmol/L (22-30); Chloride 99 mmol/L (98-107); Estimated Creatinine Clearance 43 ml/min; Glucose 132 mg/dl (70-99); Potassium 3.8 mmol/L (3.5-5.1); Sodium 137 mmol/L (135-145); Total Bilirubin 1.6 mg/dl (0.2-1.3); Total Protein 6.4 g/dl (6.3-8.2); eGFR > 60.00
[2024-11-13 05:33] LABS: Hematocrit 39.4 % (37.0-47.0); Hemoglobin 13.6 g/dL (12.0-16.0); Mean Corp Hgb Conc. 34.5 g/dL (33.0-37.0); Mean Platelet Volume 10.9 fL (7.4-10.4); Platelet Count 203 10^3/uL (130-400); Red Blood Cell Count 4.53 10^6/uL (4.20-5.40); Red Cell Dist. Width 13.2 % (11.5-14.5); White Blood Cell Count 7.1 10^3/uL (4.8-10.8)
[2024-11-13] MEDS: LOPRESSOR 5 MG IV ×5 (06:00→22:58)
--- NOTE | 2024-11-13 08:23 | W.PN.CARDCBS ---
Today's Communication / Plan
-
Continue IV amiodarone, IV heparin
Per protocol will need PICC line for amiodarone
Increase metoprolol 5 mg every 4 hours
Check echo on Friday given troponin
If needed, could proceed to the OR at increased but acceptable cardiac risk
Repeat EKG and troponin
Impression / Plan
-
Primary Video Game Designer: Dr. ALIYAH Ortega
Assessment:
Presentation with abd pain, vomiting
SBO
PAF with RVR
Relative hypotension associated with above
NICM with improved EF to 45% by echo 10/2023
PAF not on OAC due to prior low burden and fall risk
Coronary artery calcifications by imaging
GERD
asthma
HTN
HLD
Hypothyroidism
Mild dementia
History of chronic UTIs
History of SBO s/p KATE
ECHO 10/2023: EF 46%, mild global hypokinesis, grade 1 diastolic dysfunction
Plan:
Although she had atrial fibrillation with rapid ventricular response and ST segment changes yesterday, and has an elevated troponin this morning, she appears better from a cardiac standpoint today.
Currently she is in sinus rhythm, earlier if she may have been in atrial fibrillation with a ventricular response around 130 bpm after having converted to sinus rhythm last night. Operative intervention for SBO may be a necessity, so continue
heparin, avoid DOAC's. Patient currently NPO.
Continue IV amiodarone, will increase metoprolol to 5 mg IV Q4 instead of Q6 given persistent tachycardia.
Her troponin elevation is probably a non-ACS myocardial injury from A-fib and rapid ventricular response and hemodynamic stress of small bowel obstruction. We will check an echocardiogram on Friday. When patient is recovered we can determine
whether or not an ischemic evaluation is indicated.
No evidence of heart failure on exam at this time.
We will continue to follow.
Progress Note - Video Game Designer
Subjective
Date of Service: November 13, 2024:
NG tube in place, still with abdominal pain,
PMH/PSH: Nonischemic cardiomyopathy, improved EF to 45% 2023, rare PAF, not anticoagulated, nonobstructive CAD, GERD, asthma, hypertension, hyperlipidemia, cognitive impairment, hypothyroidism, chronic UTIs, prior history of SBO with lysis of
adhesions
Medications: Amiodarone IV, heparin IV, metoprolol 5 mg IV Q6, IV pantoprazole other meds on hold (aspirin, atorvastatin, Klonopin, B12, Neurontin, levothyroxine, Entresto, Effexor, Gemtesa)
151/87, pulse 95, Respiratory 21, afebrile, sats 95%, intake and output -0.75 L, weight is 66.8 kg, which is stable, tachycardic, possibly PAF but currently sinus rhythm, lungs are relatively clear, tachycardic, no obvious murmurs, no edema
Hemoglobin 13.6, white count 7.1, BUN and creatinine 45 and 0.9, potassium 3.8, troponin 1.8
Chest x-ray no active disease, atherosclerosis of aorta
KUB: SBO
ECG last night normal sinus rhythm, nonspecific ST and T wave changes
Objective
Labs:
11/13/24 04:31
11/13/24 04:31
Labs
Hgb 13.6 g/dL (12.0-16.0) 11/13/24 04:31
Hct 39.4 % (37.0-47.0) 11/13/24 04:31
Plt Count 203 10^3/uL (130-400) D 11/13/24 04:31
APTT 102.6 Sec (23.4-35.0) H 11/13/24 01:44
Sodium 137 mmol/L (135-145) 11/13/24 04:31
Potassium 3.8 mmol/L (3.5-5.1) 11/13/24 04:31
BUN 45 mg/dl (7-17) H 11/13/24 04:31
Creatinine 0.9 mg/dL (0.6-1.0) 11/13/24 04:31
Glucose 132 mg/dl (70-99) H 11/13/24 04:31
Troponins
11/11/24
14:38
Troponin I 0.015
Vital Signs and I&O:
Vital Signs
Temp Pulse Resp BP Pulse Ox
36.8 C 95 21 151/87 95
11/13/24 07:11 11/13/24 07:00 11/13/24 07:00 11/13/24 07:00 11/13/24 08:07
Vital Signs
Temp Pulse Resp BP Pulse Ox
36.8 C 95 21 151/87 95
11/13/24 07:11 11/13/24 07:00 11/13/24 07:00 11/13/24 07:00 11/13/24 08:07
Intake & Output
11/11/24 11/12/24 11/13/24 11/14/24
07:59 07:59 07:59 07:59
Intake Total 2460 / 2460
Output Total 1600 / 1600 3200 / 3200
Balance -1600 / -1600 -740 / -740
Physical Exam
Physical Exam
See above
--- NOTE | 2024-11-13 09:04 | PTCARENOTE ---
Patient vomited this AM. Patient still reports nausea and abdominal pain. NG tube [place] sump in right nare with low intermittent suction as ordered, draining brown/green bile. Abdomen full/distended. Right upper quadrant abdominal pain. IV
heparin drip currently at 1000 units/hr. Waiting for PTT to result. Amio drip infusing at 16.7 mls/hr. IV fluids NSS @ 60 mls/hr. Patient resting in bed. AAOx3, forgetful. ST on monitor. VS stable.
[2024-11-13 09:08] LABS: APTT 101.3 Sec (23.4-35.0)
[2024-11-13] MEDS: NSS (PRESERVATIVE FREE) 10 ML IV (09:14)
[2024-11-13] MEDS: DESENEX/MITRAZOL/ZEASORB 1 APPLIC TOPICAL ×2 (09:15→20:15)
[2024-11-13] MEDS: ZOFRAN 4 MG IV ×2 (09:15→17:17)
[2024-11-13] MEDS: PROTONIX IV 40 MG IV (09:15)
[2024-11-13] MEDS: REFRESH EYE DROPS (PF) 1 DROPS BOTH EYES ×2 (09:16→20:15)
[2024-11-13] MEDS: FLUSH (NSS) 1 FLUSH IV (12:20)
[2024-11-13] MEDS: CORDARONE 518 MG IV (12:21)
--- NOTE | 2024-11-13 12:39 | W.PN.GS2 ---
Today's Communication / Plan
-
Appreciate cardiac recommendations, echo planned for Friday.
Will plan for surgery early next week pending clinical course
N.p.o., continue NG tube to low intermittent wall suction.
IV fluids.
Trend labs and replete electrolytes as needed.
Out of bed and ambulate as able.
Assessment / Plan
-
This is an 79-year-old female with a history significant for atrial fibrillation not previously on anticoagulation, CAD, hysterectomy, cholecystectomy, tubal ligation and prior surgery for bowel obstruction here with abdominal pain and found to have
a recurrent small bowel obstruction seen on CT. Pain improved with NG tube placement but still no return of bowel function. Small bowel follow-through showed poor flow of contrast through the small intestine, x-ray today shows residual contrast in
the small bowel consistent with obstruction. A-fib with RVR and troponin leak
Appreciate cardiac recommendations, echo planned for Friday.
Will plan for surgery early next week pending clinical course
N.p.o., continue NG tube to low intermittent wall suction.
IV fluids.
Trend labs and replete electrolytes as needed.
Out of bed and ambulate as able.
Time Spent
Total Time Spent with Patient (in minutes): 20
Subjective Data
-
Date of Service: November 13, 2024
Interval Events:
A-fib with RVR and subsequent troponin leak. Pain Controlled. Denies Nausea/Vomiting, -bowel function. NG tube in place
Objective Data
-
Intake and Output
11/12/24 11/13/24 11/14/24
06:59 06:59 06:59
Intake Total 2460 / 2460
Output Total 1600 / 1600 3200 / 3200
Balance -1600 / -1600 -740 / -740 -25 / -25
Intake:
Oral fluids 0 / 0
IV fluids (Total) 2340 / 2340
IV piggybacks 120 / 120
Output:
Emesis 50 / 50
Gastrointestinal tube output ( 1600 / 1600 2500 / 2500
Total)
[place] Sump 1600 / 1600 2500 / 2500
Urine, Voided 650 / 650
Other:
How many times incontinent 1 1
SMALL amount urine
Vital Signs
Temp Pulse Resp BP Pulse Ox
98.2 F 95 21 151/87 95
11/13/24 07:11 11/13/24 07:00 11/13/24 07:00 11/13/24 07:00 11/13/24 08:07
Lab Results
11/13/24 04:31
11/13/24 04:31
Calcium 9.5 mg/dl (8.4-10.2) 11/13/24 04:31
Magnesium 2.0 mg/dl (1.6-2.3) 11/11/24 13:44
Total Bilirubin 1.6 mg/dl (0.2-1.3) H 11/13/24 04:31
AST 51 U/L (14-36) H 11/13/24 04:31
ALT 23 U/L (0-35) 11/13/24 04:31
Alkaline Phosphatase 79 U/L (38-126) 11/13/24 04:31
Total Protein 6.4 g/dl (6.3-8.2) D 11/13/24 04:31
Albumin 3.7 g/dl (3.5-5.0) 11/13/24 04:31
Physical Exam
-
GENERAL/NEURO: Awake, Alert, no distress
CHEST: Unlabored breathing on RA, NG tube in place
ABDOMEN: Soft, Non-Tender, Non-Distended
Patient has a central line: Yes (PICC placed)
--- NOTE | 2024-11-13 13:44 | W.PN.HOSP.TC ---
Today's Communication/Plan
-
IV Amio, IV Lopressor, IV Heparin. Echo Friday
continue NGT and follow GS; OR planned next week pending medical stability
Assessment / Plan
Assessment / Plan
Assessment:
acute small bowel obstruction
Lactic acidosis from bowel obstruction
- CT: Small bowel obstruction. Uncertain etiology. Suggest a transition in the midline/right para midline mid to lower anterior abdomen.
- NPO, IVF
- pain control, anti-emetics
- NGT placed 2/14 AM for recurrent vomiting. prn Flushes
- GS following; Surgery likely next week pending medical course
Parox A.fib with RVR
- likely related to acute illness, lack of oral BB. Electrolytes ok
- marginal BPs; prn IV Lopressor with parameters
- continue IV Amiodarone drip
- IV heparin continues - requires intensive monitoring of PTTs. noted not on AC long-term due to prior assessment of falls
- Echo Friday
- [facility] Cards following
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
- s/p IV Bolus and now in maintenance
- monitor volume status closely
- holding GDMT (NPO): Metoprolol and Entresto
CAD
HLD
- hold ASA/Statin
Essential HTN
- IV Lopressor
- marginal BP in setting of Afib; holding Entresto
CASPER
- improved with IVF, monitor labs
Anxiety/Depression
- holding Clonazepam/Venlafaxine
hypothyroidism - oral replacement on hold, may need IV
GERD
- IV PPI
DVT ppx: IV Heparin
Code: Full
Anticipated Discharge: > 48 hours
Subjective/Interval History
-
Date of Service: November 13, 2024
pain controlled
x1 vomiting, none since NGT flushed
NGT remains in place
remains on IV Amio
Objective Data
-
Labs:
Laboratory Results
11/13/24 11/13/24 11/13/24
01:44 04:31 08:47
WBC 7.1
Hgb 13.6
Hct 39.4
Plt Count 203 D
APTT 102.6 H 101.3 H
Sodium 137
Potassium 3.8
Chloride 99
Carbon Dioxide 29
BUN 45 H
Creatinine 0.9
Glucose 132 H
Calcium 9.5
Total Bilirubin 1.6 H
AST 51 H
ALT 23
Alkaline Phosphatase 79
Vital Signs:
Vital Signs
Temp Pulse Resp BP Pulse Ox
98.3 F 95 21 151/87 95
11/13/24 13:02 11/13/24 07:00 11/13/24 07:00 11/13/24 07:00 11/13/24 08:07
I&O
11/12/24 11/13/24 11/14/24
06:59 06:59 06:59
Intake Total 2460 / 2460
Output Total 1600 / 1600 3200 / 3200
Balance -1600 / -1600 -740 / -740 -
Physical Exam
-
General: No Apparent Distress
HEENT: Normocephalic, Atraumatic and Other (NGT in place)
Cardiac: Irregular Rhythm and Tachycardic
GI: Distended
Genito-urinary: No Costovertebral Tender
Neuro: AO x 3
Psych: Calm
Data Reviewed
-
Total Time Spent with Patient (in minutes): 51
Labs: Labs Reviewed by me
[2024-11-13] MEDS: HEPARIN 25000 UNITS/250 ML IV (14:40)
--- NOTE | 2024-11-13 16:17 | PTCARENOTE ---
Reed potts draining brown/green drainage. Patient continues to have some intermittent nausea and vomiting. Patient NPO. Zofran administered as ordered. Amio drip at 0.5mg/16.7mls/hr. via right d/l PICC. Heparin drip at 1000units/10mls/hr via
right FA. Last PTT 101.3. Next PTT in AM. IV dilaudid given for upper abdominal pain as ordered. ST on monitor HR low 100's-120's. Pure wick in use. [place] urine. Will continue to monitor.
[2024-11-13] MEDS: CARDIZEM 5 MG IV (18:02)
[2024-11-13] MEDS: CARDIZEM 125 IV (18:04)
--- NOTE | 2024-11-13 18:14 | PTCARENOTE ---
Patient back in afib. ECG completed. Rapid heart rates up to 200's. Dr. Ortega notified. Order obtained for 5mg IV cardizem. Cardizem drip started. Drip now at 15mg/15mls to keep HR 80-100. Last BP 134/94, pulse ox 95% 2Lo2. Will continue to
[id number] frequently.
[2024-11-14] VITALS (25 sets, daily range): BP systolic 128–171; BP diastolic 55–113
--- NOTE | 2024-11-14 00:02 | PTCARENOTE ---
Received pt at change of shift. Pt was ST on monitor at start of shift and has gone into AFib twice with rate into the 180s. Notified MERCHANDISE PLANNING MANAGER. Administered the midnight dose of IV lopressor early. Now back to NSR/ST. Cardizem gtt at 15 mg/hr; Amio
0.5 mg/min; Heparin gtt at 1000 units/hr. Pt c/o pain in her neck. PRN dose of Dilaudid administered (see NOV). Pt resting with call rubio in reach.
[2024-11-14] MEDS: CARDIZEM 125 IV (01:27)
[2024-11-14] MEDS: LOPRESSOR 5 MG IV ×2 (03:26→08:17)
[2024-11-14] MEDS: CHLORASEPTIC/SORE THROAT SPRAY 1 SPRAY PO ×2 (04:00→08:18)
[2024-11-14 05:25] LABS: Hematocrit 37.3 % (37.0-47.0); Hemoglobin 12.5 g/dL (12.0-16.0); Mean Corp Hgb Conc. 33.5 g/dL (33.0-37.0); Mean Corpuscular Hgb 29.9 pg (27.0-31.0); Mean Corpuscular Volume 89.2 fL (81.0-99.0); Mean Platelet Volume 10.5 fL (7.4-10.4); Platelet Count 290 10^3/uL (130-400); Red Blood Cell Count 4.18 10^6/uL (4.20-5.40); Red Cell Dist. Width 12.9 % (11.5-14.5); White Blood Cell Count 4.9 10^3/uL (4.8-10.8)
[2024-11-14 05:27] LABS: APTT 89.9 Sec (23.4-35.0)
[2024-11-14 05:54] LABS: ALT (SGPT) 20 U/L (0-35); AST (SGOT) 37 U/L (14-36); Alkaline Phosphatase 74 U/L (38-126); Blood Urea Nitrogen 47 mg/dl (7-17); Calcium 9.2 mg/dl (8.4-10.2); Chloride 97 mmol/L (98-107); Estimated Creatinine Clearance 48 ml/min; Glucose 129 mg/dl (70-99); Potassium 3.2 mmol/L (3.5-5.1); Sodium 139 mmol/L (135-145); Total Bilirubin 1.2 mg/dl (0.2-1.3); Total Protein 6.7 g/dl (6.3-8.2); eGFR > 60.00
[2024-11-14 06:08] LABS: Carbon Dioxide 33 mmol/L (22-30)
--- NOTE | 2024-11-14 07:52 | PTCARENOTE ---
Assumed care of patient this AM. ST on monitor currently. Patient flipping in between afib and ST. Amio drip at 0.5mg/16.7mls/hr. Heparin drip at 1000units/10mls/hr. PTT this AM 89.9. Cardizem drip at 15mg/15mls/hr. HR currently 106 [facility] [place]
sump in right nare low intermittent suction draining green/brown bile. Patient continues with nausea and intermittent vomiting. Patient AAO very anxious and forgetful. Screaming out constantly. Unable to decrease patient's anxiety levels.
Patient normally takes effexor and clonazepam. Will continue to monitor frequently.
[2024-11-14] MEDS: DILAUDID 0.25 MG IV (08:15)
[2024-11-14] MEDS: REFRESH EYE DROPS (PF) 1 DROPS BOTH EYES ×2 (08:16→21:19)
[2024-11-14] MEDS: ZOFRAN 4 MG IV (08:16)
[2024-11-14] MEDS: PROTONIX IV 40 MG IV (08:17)
[2024-11-14] MEDS: NSS (PRESERVATIVE FREE) 10 ML IV (08:17)
[2024-11-14] MEDS: DESENEX/MITRAZOL/ZEASORB 1 APPLIC TOPICAL ×2 (08:19→21:19)
[2024-11-14] MEDS: KCL 270 MEQ IV (08:28)
--- NOTE | 2024-11-14 10:34 | W.PN.CARDCBS ---
Today's Communication / Plan
-
Stop IV diltiazem
Increase IV metoprolol
Continue IV amiodarone, IV heparin
Echo in a.m.
From cardiac standpoint, okay to proceed to the OR if needed at increased but acceptable risk
Impression / Plan
-
Primary Hides And Skins Colorer: Dr. ALIYAH Ortega
Assessment:
Presentation with abd pain, vomiting
SBO
PAF with RVR
Relative hypotension associated with above
NICM with improved EF to 45% by echo 10/2023
PAF not on OAC due to prior low burden and fall risk
Coronary artery calcifications by imaging
GERD
asthma
HTN
HLD
Hypothyroidism
Mild dementia
History of chronic UTIs
History of SBO s/p KATE
ECHO 10/2023: EF 46%, mild global hypokinesis, grade 1 diastolic dysfunction
Echo: Pending
Plan:
She remains with intermittent episodes of atrial fibrillation with rapid ventricular response. Over time, with persistent infusion of amiodarone suspect that this will diminish.
She is now back in sinus tachycardia with PACs. Will increase IV metoprolol to 7.5 mg every 4 hours. Stop diltiazem.
Continue IV amiodarone and IV heparin
No evidence of heart failure, and intake and output is negative but will check proBNP.
Await echocardiogram.
From cardiac standpoint, she could proceed to OR for lysis of adhesions if needed at increased but acceptable cardiac risk.
Progress Note - Hides And Skins Colorer
Subjective
Date of Service: November 14, 2024:
Intermittently agitated off psych meds. Still with NG tube. Complains of abdominal pain. Went back into atrial fibrillation with rapid ventricular response, was started on diltiazem and continued on metoprolol, as well as IV amiodarone and
heparin. Currently with sinus tachycardia and frequent PACs
.
Current medications: IV diltiazem, IV amiodarone, IV pantoprazole, IV heparin, metoprolol 5 mg IV every 4, levothyroxine 60 mcg daily and potassium K rider. Meds on hold-aspirin, atorvastatin, Klonopin, gabapentin, levothyroxine, Entresto,
venlafaxine,
140/72, pulse 109, respiratory rate 31, 37.3, intake and output -1.8 L, anxious, NG tube in place, lungs relatively clear, irregular rate and rhythm no obvious murmurs, abdomen distended, without much edema
ECG yesterday, A-fib, IVCD with ST and T wave changes, heart rate 170 bpm
EKG today: Pending
Echo: Tomorrow
Hemoglobin 12.5, white count 4.9, potassium 3.2, BUN and creatinine 47 and 0.8, peak troponin 1.87, this morning 0.83
Objective
Labs:
11/14/24 04:59
11/14/24 04:59
Labs
Hgb 12.5 g/dL (12.0-16.0) 11/14/24 04:59
Hct 37.3 % (37.0-47.0) 11/14/24 04:59
Plt Count 290 10^3/uL (130-400) D 11/14/24 04:59
APTT 89.9 Sec (23.4-35.0) H 11/14/24 04:59
Sodium 139 mmol/L (135-145) 11/14/24 04:59
Potassium 3.2 mmol/L (3.5-5.1) L 11/14/24 04:59
BUN 47 mg/dl (7-17) H 11/14/24 04:59
Creatinine 0.8 mg/dL (0.6-1.0) 11/14/24 04:59
Glucose 129 mg/dl (70-99) H 11/14/24 04:59
Troponins
11/11/24 11/13/24 11/13/24
14:38 08:47 16:00
Troponin I 0.015 1.870 H* 1.380 H* D
11/13/24 11/14/24 11/14/24
23:20 02:00 04:59
Troponin I 1.220 H* Cancelled 0.830 H* D
11/14/24
08:00
Troponin I Cancelled
Vital Signs and I&O:
Vital Signs
Temp Pulse Resp BP Pulse Ox
37.3 C 109 31 140/72 96
11/14/24 07:55 11/14/24 08:00 11/14/24 08:00 11/14/24 08:00 11/14/24 05:00
Vital Signs
Temp Pulse Resp BP Pulse Ox
37.3 C 109 31 140/72 96
11/14/24 07:55 11/14/24 08:00 11/14/24 08:00 11/14/24 08:00 11/14/24 05:00
Intake & Output
11/12/24 11/13/24 11/14/24 11/15/24
07:59 07:59 07:59 07:59
Intake Total 2460 / 2460 1543 / 1543 60 / 60
Output Total 1600 / 1600 3200 / 3200 2550 / 2550 900 / 900
Balance -1600 / -1600 -740 / -740 -1007 / -1007 -840 / -840
Physical Exam
Physical Exam
See above
[2024-11-14] MEDS: LOPRESSOR 7.5 MG IV ×4 (11:55→23:58)
--- NOTE | 2024-11-14 12:37 | W.PN.HOSP.TC ---
Today's Communication/Plan
-
continue IV Lopressor, IV AMio, IV Heparin - follow cards recs
continue NGT - likely SBFT tomorrow - follow GS recs
Assessment / Plan
Assessment / Plan
Assessment:
acute small bowel obstruction
Lactic acidosis from bowel obstruction
- CT: Small bowel obstruction. Uncertain etiology. Suggest a transition in the midline/right para midline mid to lower anterior abdomen.
- NPO, IVF
- pain control, anti-emetics
- NGT placed 2/14 AM for recurrent vomiting. prn Flushes
- GS following; Surgery likely next week pending medical course. SBFT likely tomorrow.
Parox A.fib with RVR
- likely related to acute illness, lack of oral BB. Electrolytes ok
- continue IV Lopressor with parameters per Cardiology
- continue IV Amiodarone drip (also briefly required IV Cardizem drip)
- IV heparin continues - requires intensive monitoring of PTTs. noted not on AC long-term due to prior assessment of falls
- Echo Friday
- [facility] Cards following
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
- s/p IV Bolus and now in maintenance
- monitor volume status closely
- holding GDMT (NPO): Metoprolol and Entresto
CAD
HLD
- hold ASA/Statin
Essential HTN
- IV Lopressor
- marginal BP in setting of Afib; holding Entresto
CASPER
- improved with IVF, monitor labs
Anxiety/Depression
- holding Clonazepam/Venlafaxine
hypothyroidism - oral replacement on hold, start IV dosing Friday
GERD
- IV PPI
DVT ppx: IV Heparin
Code: Full
Anticipated Discharge: > 48 hours
Subjective/Interval History
-
Date of Service: November 14, 2024
intermittent agitation off psych meds
having abd pain, NGT remains in place
went into Afib last night - IV Cardizem required not back in NSR with PACs
Objective Data
-
Labs:
Laboratory Results
11/14/24
04:59
WBC 4.9
Hgb 12.5
Hct 37.3
Plt Count 290 D
APTT 89.9 H
Sodium 139
Potassium 3.2 L
Chloride 97 L
Carbon Dioxide 33 H
BUN 47 H
Creatinine 0.8
Glucose 129 H
Calcium 9.2
Total Bilirubin 1.2
AST 37 H
ALT 20
Alkaline Phosphatase 74
Vital Signs:
Vital Signs
Temp Pulse Resp BP Pulse Ox
99.5 F 101 22 138/69 96
11/14/24 12:13 11/14/24 10:00 11/14/24 10:00 11/14/24 10:00 11/14/24 09:00
I&O
11/13/24 11/14/24 11/15/24
06:59 06:59 06:59
Intake Total 2460 / 2460 1543 / 1543 60 / 60
Output Total 3200 / 3200 2550 / 2550 900 / 900
Balance -740 / -740 -1007 / -1007 -840 / -840
Physical Exam
-
General: No Apparent Distress
HEENT: Normocephalic, Atraumatic and Other (+NGT)
Respiratory: Negative Wheezes
Cardiac: Regular Rhythm and S1/S2
GI: Soft and Nontender
Musculoskeletal: No Edema
Neuro: AO x 3
Psych: Calm
Data Reviewed
-
Total Time Spent with Patient (in minutes): 45
Labs: Labs Reviewed by me
--- NOTE | 2024-11-14 12:58 | W.PN.GS2 ---
Today's Communication / Plan
-
Or possibly Friday.
Assessment / Plan
-
This is an 79-year-old female with a history significant for atrial fibrillation not previously on anticoagulation, CAD, hysterectomy, cholecystectomy, tubal ligation and prior surgery for bowel obstruction here with abdominal pain and found to have
a recurrent small bowel obstruction seen on CT. Pain improved with NG tube placement but still no return of bowel function. Small bowel follow-through showed poor flow of contrast through the small intestine, x-ray today shows residual contrast in
the small bowel consistent with obstruction. A-fib with RVR and troponin leak
Appreciate cardiac recommendations, echo planned for Friday.
If no significant improvement, plan for or Friday.X-ray ordered for Friday morning risk for cardiac event given her recent troponin leak
N.p.o., continue NG tube to low intermittent. Patient and daughter understand that she is at significant wall suction. Can advance NG tube at 2.5 cm and resecured.
IV fluids.
Trend labs and replete electrolytes as needed.
Out of bed and ambulate as able.
Time Spent
Total Time Spent with Patient (in minutes): 20
Subjective Data
-
Date of Service: November 14, 2024
Interval Events:
No acute events overnight. Reports vomiting around the NG tube. NG tube in place with bilious output. Denies bowel function
Objective Data
-
Intake and Output
11/13/24 11/14/24 11/15/24
06:59 06:59 06:59
Intake Total 2460 / 2460 1543 / 1543 60 / 60
Output Total 3200 / 3200 2550 / 2550 900 / 900
Balance -740 / -740 -1007 / -1007 -840 / -840
Intake:
Oral fluids 0 / 0
IV fluids (Total) 2340 / 2340 1120 / 1120
IV piggybacks 120 / 120 283 / 283
Amount instilled into GI Tube ( 140 / 140 60 / 60
Total)
[place] Sump 140 / 140 60 / 60
Output:
Emesis 50 / 50 125 / 125
Gastrointestinal tube output ( 2500 / 2500 1760 / 1760 900 / 900
Total)
[place] Sump 2500 / 2500 1760 / 1760 900 / 900
Urine, Voided 650 / 650 665 / 665
Other:
How many times incontinent 1
SMALL amount urine
How many times incontinent 1
MODERATE amount urine
Vital Signs
Temp Pulse Resp BP Pulse Ox
99.5 F 121 27 152/81 96
11/14/24 12:13 11/14/24 12:00 11/14/24 12:00 11/14/24 12:00 11/14/24 09:00
Lab Results
11/14/24 04:59
11/14/24 04:59
Calcium 9.2 mg/dl (8.4-10.2) 11/14/24 04:59
Magnesium 2.0 mg/dl (1.6-2.3) 11/11/24 13:44
Total Bilirubin 1.2 mg/dl (0.2-1.3) 11/14/24 04:59
AST 37 U/L (14-36) H 11/14/24 04:59
ALT 20 U/L (0-35) 11/14/24 04:59
Alkaline Phosphatase 74 U/L (38-126) 11/14/24 04:59
Total Protein 6.7 g/dl (6.3-8.2) 11/14/24 04:59
Albumin 4.0 g/dl (3.5-5.0) 11/14/24 04:59
Physical Exam
-
GENERAL/NEURO: Awake, Alert, no distress
CHEST: Unlabored breathing on RA, NG tube with bilious output
ABDOMEN: Soft, Non-Tender, mildly distended
Patient has a degroot catheter: No
Patient has a central line: No
[2024-11-14] MEDS: NSS 1000 IV (13:10)
[2024-11-14] MEDS: ATIVAN 0.5 MG IV ×2 (13:15→22:17)
[2024-11-14 14:07] LABS: NT-proBNP 2270 pg/ml
[2024-11-14] MEDS: HEPARIN 25000 UNITS/250 ML IV (17:44)
--- NOTE | 2024-11-14 18:21 | PTCARENOTE ---
IV cardizem discontinued as per cardiology. Patient remains NPO. Remains ST on monitor HR 90-130's. Advanced [place] sump as per surgery. Tube marking at 57. Patient has not vomited since this was done. Pain and nausea seem better today.
[2024-11-14] MEDS: CORDARONE 518 MG IV (18:33)
[2024-11-15] VITALS (14 sets, daily range): BP systolic 135–163; BP diastolic 58–94
--- NOTE | 2024-11-15 01:36 | PTCARENOTE ---
Caring for pt overnight. aaox1-2. Very forgetful & very confused. NSR/afib/svt on monitor. HR can go up to 200's, iv lopressor q4h. Continues on heparin gtt & amio gtt. VSS. Q2T. Purewick. NGT. IVF. BA on. will monitor.
[2024-11-15] MEDS: CARDIZEM 125 IV (03:10)
--- NOTE | 2024-11-15 03:15 | PTCARENOTE ---
HR consistently hitting 200's, up to 215BPM. At this time was not due for lopressor. Contacted BEAM SEALER & cardizem gtt was resumed. BP stable. pt asymptomatic from what can be assessed, pt very confused, does not believe staff that she is in a hospital
bed, continues to try to get up.
[2024-11-15] MEDS: LOPRESSOR 7.5 MG IV ×2 (03:17→08:43)
[2024-11-15 05:14] LABS: Hematocrit 36.6 % (37.0-47.0); Hemoglobin 12.1 g/dL (12.0-16.0); Mean Corp Hgb Conc. 33.1 g/dL (33.0-37.0); Mean Corpuscular Volume 90.8 fL (81.0-99.0); Mean Platelet Volume 10.4 fL (7.4-10.4); Platelet Count 270 10^3/uL (130-400); Red Blood Cell Count 4.03 10^6/uL (4.20-5.40); Red Cell Dist. Width 12.9 % (11.5-14.5)
[2024-11-15 05:42] LABS: ALT (SGPT) 19 U/L (0-35); AST (SGOT) 28 U/L (14-36); Albumin 3.7 g/dl (3.5-5.0); Alkaline Phosphatase 71 U/L (38-126); Blood Urea Nitrogen 34 mg/dl (7-17); Calcium 9.2 mg/dl (8.4-10.2); Carbon Dioxide 32 mmol/L (22-30); Chloride 100 mmol/L (98-107); Estimated Creatinine Clearance 64 ml/min; Glucose 105 mg/dl (70-99); Potassium 3.1 mmol/L (3.5-5.1); Sodium 142 mmol/L (135-145); Total Bilirubin 1.1 mg/dl (0.2-1.3); Total Protein 6.4 g/dl (6.3-8.2); eGFR > 60.00
[2024-11-15 06:29] LABS: APTT 71.5 Sec (23.4-35.0)
--- NOTE | 2024-11-15 08:36 | W.PN.HOSP.TC ---
Addendum entered and electronically signed by Ezra Pedro MD 11/15/24 11:58:
KCL for hypokalemia
Original Note:
Today's Communication/Plan
-
continue Lopressor, IV Amio, IV heparin; f/u Cards recs
f/u Xray and GS plans
continue IVF
Assessment / Plan
Assessment / Plan
Assessment:
acute small bowel obstruction
Lactic acidosis from bowel obstruction
- CT: Small bowel obstruction. Suggest a transition in the midline/right para midline mid to lower anterior abdomen.
- NPO, IVF
- pain control, anti-emetics
- NGT placed 2/14 AM for recurrent vomiting. prn Flushes
- GS following; Surgical intervention likely pending medical course. Xray pending today
Parox A.fib with RVR
- likely related to acute illness, lack of oral BB. Electrolytes ok
- continue IV Lopressor with parameters per Cardiology
- continue IV Amiodarone drip (also briefly required IV Cardizem drip)
- IV heparin continues - requires intensive monitoring of PTTs. noted not on AC long-term due to prior assessment of falls
- Echo today
- [facility] Cards following
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
- s/p IV Bolus and now in maintenance
- monitor volume status closely
- holding GDMT (NPO): Metoprolol and Entresto
Non-ischemic myocardial injury in setting of Rapid A. Fib with RVR
- Trop peaked at 1.87
- Echo today
CAD
HLD
- hold ASA/Statin
Essential HTN
- IV Lopressor
- marginal BP in setting of Afib; holding Entresto
CASPER
- improved with IVF, monitor labs
Anxiety/Depression
- holding Clonazepam/Venlafaxine
hypothyroidism - oral replacement on hold, start IV dosing
GERD
- IV PPI
DVT ppx: IV Heparin
Code: Full
Anticipated Discharge: > 48 hours
Subjective/Interval History
-
Date of Service: November 15, 2024
required IV Cardizem last evening for RVR
now weaned off with HRs in 90s
remains with NGT in place
Objective Data
-
Labs:
Laboratory Results
11/15/24 11/15/24 11/15/24
05:02 05:49 13:00
WBC 10.0
Hgb 12.1
Hct 36.6 L
Plt Count 270
APTT 71.5 H Pending
Sodium 142
Potassium 3.1 L
Chloride 100
Carbon Dioxide 32 H
BUN 34 H
Creatinine 0.6
Glucose 105 H
Calcium 9.2
Total Bilirubin 1.1
AST 28
ALT 19
Alkaline Phosphatase 71
Vital Signs:
Vital Signs
Temp Pulse Resp BP Pulse Ox
98.5 F 102 19 152/64 98
11/15/24 07:15 11/15/24 06:00 11/15/24 06:00 11/15/24 06:00 11/15/24 06:00
I&O
11/14/24 11/15/24 11/16/24
06:59 06:59 06:59
Intake Total 1543 / 1543 1205 / 1205
Output Total 2550 / 2550 2150 / 2150
Balance -1007 / -1007 -945 / -945
Physical Exam
-
General: No Apparent Distress
HEENT: Normocephalic, Atraumatic and Other (+NGT)
Cardiac: Irregular Rhythm
GI: Soft and Nontender
Genito-urinary: No Costovertebral Tender
Neuro: AO x 3
Psych: Calm
Data Reviewed
-
Total Time Spent with Patient (in minutes): 51
Labs: Labs Reviewed by me
[2024-11-15] MEDS: DESENEX/MITRAZOL/ZEASORB 1 APPLIC TOPICAL ×2 (08:42→20:50)
[2024-11-15] MEDS: REFRESH EYE DROPS (PF) 1 DROPS BOTH EYES ×2 (08:43→20:50)
[2024-11-15] MEDS: PROTONIX IV 40 MG IV (08:45)
[2024-11-15] MEDS: NSS (PRESERVATIVE FREE) 10 ML IV (08:45)
[2024-11-15] MEDS: NSS 1000 IV (08:46)
[2024-11-15] MEDS: KCL 270 MEQ IV (08:58)
--- NOTE | 2024-11-15 09:15 | W.PN.CARDCBS ---
Today's Communication / Plan
-
Increase metoprolol IV to 10 every 4 hours
Check mag level
Continue amiodarone drip
Continue heparin
Diltiazem IV as needed
If surgery is indicated, would recommend proceeding despite AF. Suspect once SBO is resolved that A-fib will become much less problematic.
If AF recurs intraoperatively suspected could be managed with metoprolol IV or Cardizem IV. Defibrillator patches could be placed preop if needed.
Does she need parenteral nutrition?
Impression / Plan
-
Primary Protohistorian: Dr. ALIYAH Ortega
Assessment:
Presentation with abd pain, vomiting
SBO
PAF with RVR
Relative hypotension associated with above
NICM with improved EF to 45% by echo 10/2023
PAF not on OAC due to prior low burden and fall risk
Coronary artery calcifications by imaging
GERD
asthma
HTN
HLD
Hypothyroidism
Mild dementia
History of chronic UTIs
History of SBO s/p KATE
ECHO 10/2023: EF 46%, mild global hypokinesis, grade 1 diastolic dysfunction
Echo: Pending
Plan:
She is still having periodic atrial fibrillation despite IV metoprolol and IV amiodarone. Will increase metoprolol to 10 mg IV Q4. We could consider an esmolol drip as well.
Continue IV heparin and IV amiodarone. Use IV diltiazem for episodes of A-fib which will tend to be self-limited.
If patient needs surgery, would recommend proceeding despite episodic A-fib. If intraoperative A-fib occurs, could be managed with IV metoprolol or IV diltiazem. Defibrillator patches could also be placed preop in the event that cardioversion was
required
Suspect that once SBO is resolved that A-fib will gem.
Await echocardiogram.
proBNP is elevated but volume status on exam seems good.
Potassium is being supplemented. Check magnesium, was 2 on admission.
Currently volume status is appropriate. She is relatively hypertensive but this does not require treatment.
Progress Note - Protohistorian
Subjective
Date of Service: November 15, 2024:
Still with episodes of atrial fibrillation with rapid ventricular response, controlled with IV diltiazem
Medications: IV heparin, IV amiodarone, metoprolol 7.5 mg IV Q4, K rider, IV diltiazem
155/67, pulse currently 90s, afebrile sats 98%, weight is 66.8 kg which is stable, intake and output roughly even,, very fatigued, worn down, lungs are clear, currently regular rate and rhythm, in sinus, no obvious murmurs, no edema, JVD okay,
abdomen distended, NG tube in place
hemoglobin 12.1, white count 10.0, potassium 3.1, bicarb 32, BUN and creatinine 34 and 0.6, proBNP is 2270
Chest x-ray yesterday no active disease
Objective
Labs:
11/15/24 05:02
11/15/24 05:02
Labs
Hgb 12.1 g/dL (12.0-16.0) 11/15/24 05:02
Hct 36.6 % (37.0-47.0) L 11/15/24 05:02
Plt Count 270 10^3/uL (130-400) 11/15/24 05:02
APTT 71.5 Sec (23.4-35.0) H 11/15/24 05:49
Sodium 142 mmol/L (135-145) 11/15/24 05:02
Potassium 3.1 mmol/L (3.5-5.1) L 11/15/24 05:02
BUN 34 mg/dl (7-17) H 11/15/24 05:02
Creatinine 0.6 mg/dL (0.6-1.0) 11/15/24 05:02
Glucose 105 mg/dl (70-99) H 11/15/24 05:02
Troponins
11/13/24 11/13/24 11/13/24
08:47 16:00 23:20
Troponin I 1.870 H* 1.380 H* D 1.220 H*
11/14/24 11/14/24 11/14/24
02:00 04:59 08:00
Troponin I Cancelled 0.830 H* D Cancelled
Vital Signs and I&O:
Vital Signs
Temp Pulse Resp BP Pulse Ox
36.9 C 94 19 155/67 98
11/15/24 07:15 11/15/24 08:43 11/15/24 06:00 11/15/24 08:43 11/15/24 06:00
Vital Signs
Temp Pulse Resp BP Pulse Ox
36.9 C 94 19 155/67 98
11/15/24 07:15 11/15/24 08:43 11/15/24 06:00 11/15/24 08:43 11/15/24 06:00
Intake & Output
11/13/24 11/14/24 11/15/24 11/16/24
07:59 07:59 07:59 07:59
Intake Total 2460 / 2460 1543 / 1543 1205 / 1205
Output Total 3200 / 3200 2550 / 2550 2150 / 2150
Balance -740 / -740 -1007 / -1007 -945 / -945
Physical Exam
Physical Exam
See above
--- NOTE | 2024-11-15 09:53 | PTCARENOTE ---
Rec'd pt thsi AM. Cardizem drip restartd overnight due to A fib with RVR, HR in 200s. HR improved this AM. Notified Cardiology Dr. Ortega and Betty Barba. Gave meds as ordered and was able to wean off Caridzem drip per order. HR currently 78. Remains
on amio, Hep, IVF and K rider at this time. NGT continues to drain copiuos abounts of dark liquid. BP stable.
[2024-11-15 10:18] LABS: Magnesium 2.5 mg/dl (1.6-2.3)
[2024-11-15] MEDS: ATIVAN 0.5 MG IV (10:39)
--- NOTE | 2024-11-15 11:01 | PTCARENOTE ---
Per Dr. Singer from surgery, Heparin on hold for now in case pt requires OR today.
[2024-11-15] MEDS: LOPRESSOR 10 MG IV ×4 (12:46→23:01)
[2024-11-15] MEDS: LEVOTHROID 60 MCG IV (17:59)
[2024-11-15] MEDS: CHLORASEPTIC/SORE THROAT SPRAY 1 SPRAY PO (18:25)
--- NOTE | 2024-11-15 20:22 | W.PN.GS2 ---
Today's Communication / Plan
-
OR tomorrow
Heparin drip to be held at 4 AM tomorrow
Patient and daughter updated. They understand that she is at high risk for the understand that
Patient and daughter updated. They understand that she is at high risk for morbidity and mortality given her ongoing cardiac issues but both wish to move forward with surgery.
Assessment / Plan
-
This is an 79-year-old female with a history significant for atrial fibrillation not previously on anticoagulation, CAD, hysterectomy, cholecystectomy, tubal ligation and prior surgery for bowel obstruction here with abdominal pain and found to have
a recurrent small bowel obstruction seen on CT. Pain improved with NG tube placement but still no return of bowel function. Small bowel follow-through showed poor flow of contrast through the small intestine, x-ray today shows residual contrast in
the small bowel consistent with obstruction. A-fib with RVR and troponin leak
Appreciate cardiac recommendations, echo demonstrated an EF of 45 to 50% which is her baseline.
Will plan for or tomorrow afternoon for a laparoscopic possible open lysis of adhesions.
Please hold heparin drip at 4 AM
N.p.o., continue NG tube to low intermittent.
Time Spent
Total Time Spent with Patient (in minutes): 20
Subjective Data
-
Date of Service: November 15, 2024
Interval Events:
No acute events overnight. Pain Controlled. Denies Nausea/Vomiting, -bowel function.
Objective Data
-
Intake and Output
11/14/24 11/15/24 11/16/24
06:59 06:59 06:59
Intake Total 1543 / 1543 1205 / 1205
Output Total 2550 / 2550 2150 / 2150 500 / 500
Balance -1007 / -1007 -945 / -945 -500 / -500
Intake:
IV fluids (Total) 1120 / 1120 520 / 520
IV piggybacks 283 / 283 595 / 595
Amount instilled into GI Tube ( 140 / 140 90 / 90
Total)
[place] Sump 140 / 140 90 / 90
Output:
Emesis 125 / 125
Gastrointestinal tube output ( 1760 / 1760 1700 / 1700
Total)
[place] Sump 1760 / 1760 1700 / 1700
Urine, Voided 665 / 665 450 / 450
Straight cath output 500 / 500
Other:
How many times incontinent 1
MODERATE amount urine
Vital Signs
Temp Pulse Resp BP Pulse Ox
99.3 F 115 23 163/80 99
11/15/24 15:04 11/15/24 18:00 11/15/24 18:00 11/15/24 18:00 11/15/24 18:00
Lab Results
11/15/24 05:02
11/15/24 05:02
Calcium 9.2 mg/dl (8.4-10.2) 11/15/24 05:02
Magnesium 2.5 mg/dl (1.6-2.3) H 11/15/24 05:02
Total Bilirubin 1.1 mg/dl (0.2-1.3) 11/15/24 05:02
AST 28 U/L (14-36) 11/15/24 05:02
ALT 19 U/L (0-35) 11/15/24 05:02
Alkaline Phosphatase 71 U/L (38-126) 11/15/24 05:02
Total Protein 6.4 g/dl (6.3-8.2) 11/15/24 05:02
Albumin 3.7 g/dl (3.5-5.0) 11/15/24 05:02
Physical Exam
-
GENERAL/NEURO: Awake, Alert, no distress
CHEST: Unlabored breathing on RA
ABDOMEN: Soft, Non-Tender, distended. NG tube with bilious output.
Patient has a degroot catheter: No
Patient has a central line: No
[2024-11-15 21:21] LABS: APTT 57.2 Sec (23.4-35.0)
[2024-11-15] MEDS: HEPARIN 25000 UNITS/250 ML IV (23:01)
[2024-11-16] VITALS (18 sets, daily range): BP systolic 134–173; BP diastolic 68–96; BMI 27.2
[2024-11-16] MEDS: CORDARONE 518 MG IV (01:45)
--- NOTE | 2024-11-16 02:32 | PTCARENOTE ---
Received pt at change of shift. CHG bath given and bed change for OR tomorrow morning. NGT in R nare remains low int suction. No c/o nausea at this time. PTT low; Heparin gtt adjusted per protocol to 1000 units/hr. gtt to be turned off at 04:00
in anticipation of surgery. Resting in bed with call rubio in reach.
[2024-11-16] MEDS: LOPRESSOR 10 MG IV ×5 (04:05→20:31)
[2024-11-16 04:31] LABS: Hematocrit 36.9 % (37.0-47.0); Hemoglobin 11.8 g/dL (12.0-16.0); Mean Corpuscular Hgb 29.4 pg (27.0-31.0); Mean Platelet Volume 10.5 fL (7.4-10.4); Platelet Count 276 10^3/uL (130-400); Red Blood Cell Count 4.01 10^6/uL (4.20-5.40); Red Cell Dist. Width 13.2 % (11.5-14.5)
[2024-11-16 05:00] LABS: Blood Urea Nitrogen 27 mg/dl (7-17); Calcium 8.7 mg/dl (8.4-10.2); Carbon Dioxide 30 mmol/L (22-30); Chloride 103 mmol/L (98-107); Estimated Creatinine Clearance 64 ml/min; Glucose 92 mg/dl (70-99); Potassium 3.2 mmol/L (3.5-5.1); Sodium 143 mmol/L (135-145); eGFR > 60.00
--- NOTE | 2024-11-16 07:32 | W.SUR.PREOP ---
Pre-Operative Surgical Note
-
I have examined this patient prior to the performance of the scheduled procedure.
The patient's condition is unchanged from the time of the current History and
Physical and the patient is able to undergo the scheduled procedure.
[2024-11-16] MEDS: REFRESH EYE DROPS (PF) 1 DROPS BOTH EYES ×2 (08:28→20:32)
[2024-11-16] MEDS: PROTONIX IV 40 MG IV (08:29)
[2024-11-16] MEDS: NSS (PRESERVATIVE FREE) 10 ML IV (08:29)
[2024-11-16] MEDS: KCL 270 MEQ IV (08:31)
[2024-11-16] MEDS: DESENEX/MITRAZOL/ZEASORB 1 APPLIC TOPICAL ×2 (08:31→20:31)
[2024-11-16] MEDS: ATIVAN 0.5 MG IV ×2 (08:39→22:36)
--- NOTE | 2024-11-16 10:05 | W.PN.CARDCBS ---
Today's Communication / Plan
-
Continue IV metoprolol for rate control of A-fib
Anticoagulation when safe from a surgical standpoint
Impression / Plan
-
Primary Patient Services Coordinator: Dr. ALIYAH Ortega
Assessment:
Presentation with abd pain, vomiting
SBO
PAF with RVR
Relative hypotension associated with above
NICM with improved EF to 45% by echo 10/2023
PAF not on OAC due to prior low burden and fall risk
Coronary artery calcifications by imaging
GERD
asthma
HTN
HLD
Hypothyroidism
Mild dementia
History of chronic UTIs
History of SBO s/p KATE
ECHO 10/2023: EF 46%, mild global hypokinesis, grade 1 diastolic dysfunction
Plan:
#AFib
Still having periodic episodes of atrial fibrillation
Hopefully will improve with treatment of SBO, monitor on tele post-op
Cont IV metoprolol for rate control
AC when safe from surgical standpoint
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
proBNP is elevated but does not appears volume overloaded on exam
PO Entresto and metoprolol on hold, resume when able to take oral meds
Progress Note - Patient Services Coordinator
Subjective
Date of Service: November 16, 2024
NAOE. Remains in IMU with NG tube in place. Reporting abd discomfort.
Objective
Labs:
11/16/24 04:11
11/16/24 04:11
Labs
Hgb 11.8 g/dL (12.0-16.0) L 11/16/24 04:11
Hct 36.9 % (37.0-47.0) L 11/16/24 04:11
Plt Count 276 10^3/uL (130-400) 11/16/24 04:11
APTT 57.2 Sec (23.4-35.0) H 11/15/24 20:58
Sodium 143 mmol/L (135-145) 11/16/24 04:11
Potassium 3.2 mmol/L (3.5-5.1) L 11/16/24 04:11
BUN 27 mg/dl (7-17) H 11/16/24 04:11
Creatinine 0.6 mg/dL (0.6-1.0) 11/16/24 04:11
Glucose 92 mg/dl (70-99) 11/16/24 04:11
Troponins
11/13/24 11/13/24 11/14/24
16:00 23:20 02:00
Troponin I 1.380 H* D 1.220 H* Cancelled
11/14/24 11/14/24
04:59 08:00
Troponin I 0.830 H* D Cancelled
Vital Signs and I&O:
Vital Signs
Temp Pulse Resp BP Pulse Ox
99.1 F 117 24 169/87 99
11/16/24 03:00 11/16/24 08:30 11/16/24 06:00 11/16/24 08:30 11/16/24 06:00
Vital Signs
Temp Pulse Resp BP Pulse Ox
99.1 F 117 24 169/87 99
11/16/24 03:00 11/16/24 08:30 11/16/24 06:00 11/16/24 08:30 11/16/24 06:00
Intake & Output
11/14/24 11/15/24 11/16/24 11/17/24
06:59 06:59 06:59 06:59
Intake Total 1543 / 1543 1205 / 1205 1160.4 / 1160.4
Output Total 2550 / 2550 2150 / 2150 1425 / 1425
Balance -1007 / -1007 -945 / -945 -264.6 / -264.6
Physical Exam
Physical Exam
Gen: NAD, AA
HEENT: NC/AT, sclera anicteric, NG tube in place with bilious drainage
Neck: No JVD
CV: RRR, NL s1/s2
Lungs: CTAB
Abd: Distended
Ext: No LE edema
Skin: Warm, dry
Neuro: Non-focal
--- NOTE | 2024-11-16 10:22 | W.PN.GS2 ---
Addendum entered and electronically signed by Merritt Fonseca MD 11/22/24 09:32:
Clinical and radiographic evidence consistent with diagnosis of complete SBO
Original Note:
Today's Communication / Plan
-
-- Laparoscopic possible open KATE
-- Abx: Ancef and Flagyl substation engineer to OR
-- NPO, IVF
-- Hep gtt on hold as of 4 AM
Assessment / Plan
-
Pateint is a 79 yo F p/w SBO likely secondary to adhesions
Pain improved with NG tube placement but still no return of bowel function.
Small bowel follow-through showed poor flow of contrast through the small intestine, x-ray today shows residual contrast in the small bowel consistent with obstruction.
A-fib with RVR and troponin leak
Given lack of clinical and radiographic improvement from an SBO standpoint over the past several days, recommend operative management. Plan for a laparoscopic possible open lysis of adhesions, possible bowel resection. The procedure itself, as
well as the risks, benefits, and alternatives has been previously discussed with patient and her family. Specifically, we discussed bleeding, infection, injury to surrounding structures (bowel), wound complications, hernia formation, and general
anesthetic complications. Family is well versed on the fact that given her recent troponin leak and stress on her heart she is at increased risk for cardiac complications both operatively and postoperatively. All questions answered.
Of note, patient will likely need TPN post-op given her length of time without PO intake and general malnourished state. Will hold on ordering for now given OR pending and don't want patient off floors for CVL/PICC. Nutrition consult ordered for
recs.
-- Laparoscopic possible open KATE
-- Abx: Ancef and Flagyl substation engineer to OR
-- NPO, IVF
-- Hep gtt on hold as of 4 AM
-- Nutrition consult for TPN recs
Subjective Data
-
Date of Service: November 16, 2024
Major complaints. Denies worsening pain. No nausea or vomiting. No flatus or BM.
Objective Data
-
Intake and Output
11/15/24 11/16/24 11/17/24
06:59 06:59 06:59
Intake Total 1205 / 1205 1250.4 / 1250.4
Output Total 2150 / 2150 2024
Balance -945 / -945 -774.6 / -774.6
Intake:
IV fluids (Total) 520 / 520 960 / 960
IV piggybacks 595 / 595 200.4 / 200.4
Amount instilled into GI Tube ( 90 / 90 /
Total)
[place] Sump 90 / 90 90 / 90
Output:
Gastrointestinal tube output ( 1700 / 1700 950 / 950
Total)
[place] Sump 1700 / 1700 950 / 950
Urine, Voided 450 / 450
Straight cath output 1075 / 1075
Vital Signs
Temp Pulse Resp BP Pulse Ox
99 F 117 24 169/87 99
11/16/24 07:40 11/16/24 08:30 11/16/24 06:00 11/16/24 08:30 11/16/24 06:00
Lab Results
11/16/24 04:11
11/16/24 04:11
Calcium 8.7 mg/dl (8.4-10.2) 11/16/24 04:11
Magnesium 2.5 mg/dl (1.6-2.3) H 11/15/24 05:02
Total Bilirubin 1.1 mg/dl (0.2-1.3) 11/15/24 05:02
AST 28 U/L (14-36) 11/15/24 05:02
ALT 19 U/L (0-35) 11/15/24 05:02
Alkaline Phosphatase 71 U/L (38-126) 11/15/24 05:02
Total Protein 6.4 g/dl (6.3-8.2) 11/15/24 05:02
Albumin 3.7 g/dl (3.5-5.0) 11/15/24 05:02
Physical Exam
-
Gen: NAD
HEENT: NGT bilious
AbdZ: soft, NT, mild distension, non-peritoneal, prior incisions well healed
Patient has a degroot catheter: Yes
Patient has a central line: No
--- NOTE | 2024-11-16 10:34 | W.PN.HOSP.TC ---
Addendum entered and electronically signed by Ezra Pedro MD 11/16/24 10:48:
KCL for hypokalemia
Original Note:
Today's Communication/Plan
-
OR today with surgical service
continue Amio/Lopressor per Cards service
Assessment / Plan
Assessment / Plan
Assessment:
acute small bowel obstruction
Lactic acidosis from bowel obstruction
- CT: Small bowel obstruction. Suggest a transition in the midline/right para midline mid to lower anterior abdomen.
- NPO, IVF
- pain control, anti-emetics
- NGT placed 214 AM for recurrent vomiting. prn Flushes
- GS following; for lap possible open KATE today
Parox A.fib with RVR
- likely related to acute illness, lack of oral BB. Electrolytes being monitored
- continue IV Lopressor with parameters per Cardiology
- continue IV Amiodarone drip (also briefly required IV Cardizem drip)
- off anticoagulation today for OR
- Echo: EF 45-50%, otherwise normal, no change since 2023
- DCA Cards following
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
- s/p IV Bolus and now in maintenance
- monitor volume status closely
- holding GDMT (NPO): Metoprolol and Entresto
Non-ischemic myocardial injury in setting of Rapid A. Fib with RVR
- Trop peaked at 1.87
- Echo: EF 45-50%, otherwise normal, no change since 2023
CAD
HLD
- hold ASA/Statin
Essential HTN
- IV Lopressor
- marginal BP in setting of Afib; holding Entresto
CASPER
- improved with IVF, monitor labs
Anxiety/Depression
- holding Clonazepam/Venlafaxine
- prn Ativan in place
hypothyroidism - oral replacement on hold, continue IV dosing. discussed with Pharmacy
GERD
- IV PPI
DVT ppx: SCDs while off anticoagulation
Code: Full
Anticipated Discharge: > 48 hours
Subjective/Interval History
-
Date of Service: November 16, 2024
anxious over OR trip planned today
reports some abd pain; NGT in place
Objective Data
-
Labs:
Laboratory Results
11/16/24
04:11
WBC 12.0 H
Hgb 11.8 L
Hct 36.9 L
Plt Count 276
Sodium 143
Potassium 3.2 L
Chloride 103
Carbon Dioxide 30
BUN 27 H
Creatinine 0.6
Glucose 92
Calcium 8.7
Vital Signs:
Vital Signs
Temp Pulse Resp BP Pulse Ox
99 F 117 24 169/87 99
11/16/24 07:40 11/16/24 08:30 11/16/24 06:00 11/16/24 08:30 11/16/24 06:00
I&O
11/15/24 11/16/24 11/17/24
06:59 06:59 06:59
Intake Total 1205 / 1205 1250.4 / 1250.4
Output Total 2150 / 2150 2024
Balance -945 / -945 -774.6 / -774.6
Physical Exam
-
General: No Apparent Distress
HEENT: Normocephalic, Atraumatic and Other (+NGT)
Cardiac: Irregular Rhythm
GI: Soft
Genito-urinary: No Costovertebral Tender
Neuro: AO x 3
Hematologic / Lymphatic: No Lymphadenopathy
Psych: Calm
Data Reviewed
-
Total Time Spent with Patient (in minutes): 48
Labs: Labs Reviewed by me
[2024-11-16] MEDS: FLAGYL 500 MG 100 IV (13:36)
--- NOTE | 2024-11-16 14:20 | W.IMMPOSTOP ---
Addendum entered and electronically signed by Merritt Fonseca MD 11/16/24 14:31:
Plan:
-- OK to resume Hep gtt in 6 hrs post-op
-- Standard NGT management, remove when passing flatus
-- Would start TPN if needing continued bowel rest by tomorrow
Original Note:
Surgical Immed Post Op Note
-
Primary Surgeon: Marian
Assisting Surgeon: BHUPINDER Longoria
Pre-op Diagnosis: SBO
Post-op Diagnosis: SBO
Procedure Performed: Laparoscopic lysis of adhesions
Anesthesia Type: General
Specimen / Cultures: None
Estimated Blood Loss: 3 cc
Complications: None
Operative Findings:
1. Single band adhesion at upper aspect of prior midline incision, mid-distal ileum, transition point clearly identified
2. Contents milked distally, tissues soft, no significant stricturing
3. Intra-loop adhesions within the concerning area lysed, complete lysis of all intra-loop adhesions not performed
[2024-11-16] MEDS: SUBLIMAZE 25 MCG IV (14:27)
--- NOTE | 2024-11-16 14:53 | CM ---
Patient with Dx Rapid Afib, SBO who is s/p Lap KATE today. O2 6L mask. Receiving IVF, IV Amiodarone. NPO/NGT. Per nurse assessment; requires assist of 2 for mobility, confused.
Message to Dr Pedro requesting PT/OT Evals.
Plan watch O2 needs.
Plan follow up after seen by PT/OT.
[2024-11-16] MEDS: NSS with KCL 40 MEQ 1000 IV (16:46)
[2024-11-16] MEDS: LEVOTHROID 60 MCG IV (16:53)
[2024-11-16] MEDS: OFIRMEV 100 IV (20:32)
[2024-11-16 21:00] LABS: APTT 29.9 Sec (23.4-35.0)
[2024-11-16] MEDS: HEPARIN 25000 UNITS/250 ML IV (21:12)
[2024-11-17] VITALS (15 sets, daily range): BP systolic 131–163; BP diastolic 66–87; PULSE 93; O2SAT 100; BMI 27.2
[2024-11-17] MEDS: LOPRESSOR 10 MG IV ×3 (00:41→09:54)
[2024-11-17] MEDS: CHLORASEPTIC/SORE THROAT SPRAY 1 SPRAY PO ×2 (00:46→03:53)
[2024-11-17 04:17] LABS: APTT 72.1 Sec (23.4-35.0)
[2024-11-17] MEDS: OFIRMEV 100 IV ×2 (04:24→09:54)
[2024-11-17 04:57] LABS: Hematocrit 31.5 % (37.0-47.0); Hemoglobin 10.3 g/dL (12.0-16.0); Mean Corp Hgb Conc. 32.7 g/dL (33.0-37.0); Mean Corpuscular Hgb 29.8 pg (27.0-31.0); Mean Platelet Volume 10.1 fL (7.4-10.4); Platelet Count 249 10^3/uL (130-400); Red Blood Cell Count 3.46 10^6/uL (4.20-5.40); Red Cell Dist. Width 13.2 % (11.5-14.5)
--- NOTE | 2024-11-17 04:57 | PTCARENOTE ---
Received patient from charles ALEJO. Pt AAOx3, forgetful at times as well as anxious. Restarted heparin gtt and rashi a baseline PTT. Amiodarone gtt cont. Administered PRN ativan for increased anxiety and inability to sleep. CHG bath done. Oral hygiene
done. PICC line dressing clean, dry, and intact. New L AC peripheral site placed by VAT. R nare NGT to low-intermittent wall suction. Pt did not pass flatus overnight. [place] catheter draining clear yellow urine. 2L [place] SpO2 94%. Pt in sinus tach on
tele. Pt appears to be resting comfortably, call rubio is within reach.
[2024-11-17 06:21] LABS: Blood Urea Nitrogen 24 mg/dl (7-17); Calcium 7.5 mg/dl (8.4-10.2); Carbon Dioxide 27 mmol/L (22-30); Chloride 108 mmol/L (98-107); Estimated Creatinine Clearance 64 ml/min; Glucose 116 mg/dl (70-99); Potassium 4.9 mmol/L (3.5-5.1); Sodium 140 mmol/L (135-145); eGFR > 60.00
--- NOTE | 2024-11-17 06:35 | DOWNTIME ---
There was a [employer] Client [employer] Checker Downtime on 11/17/2024 from 0100 to 11/17/2023 at 0235 . Downtime documentation of patient's care, including medication administrations, has been reconciled in the electronic record per guidelines. Refer to the
patient's paper chart under the miscellaneous tab to see printed paper medication records and downtime forms.
--- NOTE | 2024-11-17 08:43 | W.PN.HOSP.TC ---
Addendum entered and electronically signed by Ezra Pedro MD 11/17/24 08:49:
hypokalemia resolved
Original Note:
Today's Communication/Plan
-
NPO/IVF (but stop IVF if TPN starting)
continue NGT
follow GS recs
continue IV Amio/IV Heparin/IV Lopressor; follow cards recs
PT/OT
Assessment / Plan
Assessment / Plan
Assessment:
acute small bowel obstruction
Lactic acidosis from bowel obstruction
- CT: Small bowel obstruction. Suggest a transition in the midline/right para midline mid to lower anterior abdomen.
- s/p laparoscopic KATE 11/16/24
- continue NGT
- continue pain control, anti-emetics
- continue IVF; will DC if TPN started
- GS following
Parox A.fib with RVR
- likely related to acute illness, lack of oral BB. Electrolytes monitored to keep K>4, Mg >2
- continue IV Lopressor with parameters per Cardiology
- continue IV Amiodarone drip (also briefly required IV Cardizem drip)
- IV heparin continues - requires intensive monitoring of PTTs. noted not on AC previously due to prior assessment of higher fall risk
- Echo: EF 45-50%, otherwise normal, no change since 2023
- DCA Cards following
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
- monitor volume status closely (has received IVF)
- holding GDMT (NPO): Metoprolol and Entresto
Non-ischemic myocardial injury in setting of Rapid A. Fib with RVR
- Trop peaked at 1.87
- Echo: EF 45-50%, otherwise normal, no change since 2023
CAD
HLD
- hold ASA/Statin
Essential HTN
- IV Lopressor
- marginal BP in setting of Afib; holding Entresto
CASPER
- improved with IVF, monitor labs
Anxiety/Depression
- holding Clonazepam/Venlafaxine
- prn Ativan in place
hypothyroidism - oral replacement on hold, continue IV dosing. discussed with Pharmacy
GERD
- IV PPI
DVT ppx: IV heparin
Code: Full
Anticipated Discharge: > 48 hours
Subjective/Interval History
-
Date of Service: November 17, 2024
s/p OR with KATE
in NSR
+NGT remains in place
reports slight flatus
Objective Data
-
Labs:
Laboratory Results
11/16/24 11/17/24 11/17/24
20:39 03:15 03:23
WBC
Hgb
Hct
Plt Count
APTT 29.9 Cancelled 72.1 H
Sodium
Potassium
Chloride
Carbon Dioxide
BUN
Creatinine
Glucose
Calcium
11/17/24 11/17/24
04:48 09:15
WBC 10.0
Hgb 10.3 L
Hct 31.5 L
Plt Count 249
APTT Pending
Sodium 140
Potassium 4.9 D
Chloride 108 H
Carbon Dioxide 27
BUN 24 H
Creatinine 0.5 L
Glucose 116 H
Calcium 7.5 L
Vital Signs:
Vital Signs
Temp Pulse Resp BP Pulse Ox
98.2 F 86 19 155/71 100
11/17/24 08:19 11/17/24 06:00 11/17/24 06:00 11/17/24 06:00 11/17/24 06:00
I&O
11/16/24 11/17/24 11/18/24
06:59 06:59 06:59
Intake Total 1250.4 / 1250.4 660 / 660
Output Total 2024 / 2024 1050 / 1050 325 / 325
Balance -774.6 / -774.6 -390 / -390 -325 / -325
Physical Exam
-
General: No Apparent Distress
HEENT: Normocephalic, Atraumatic and Other (+NGT)
Respiratory: Negative Wheezes
Cardiac: Regular Rhythm and S1/S2
GI: Soft and Nontender
Genito-urinary: No Costovertebral Tender
Neuro: AO x 3
Hematologic / Lymphatic: No Lymphadenopathy
Psych: Calm
Data Reviewed
-
Total Time Spent with Patient (in minutes): 51
Labs: Labs Reviewed by me
[2024-11-17] MEDS: PROTONIX IV 40 MG IV (09:53)
[2024-11-17] MEDS: NSS (PRESERVATIVE FREE) 10 ML IV (09:54)
[2024-11-17] MEDS: DESENEX/MITRAZOL/ZEASORB 1 APPLIC TOPICAL ×2 (09:55→20:33)
[2024-11-17] MEDS: REFRESH EYE DROPS (PF) 1 DROPS BOTH EYES ×2 (10:04→20:33)
--- NOTE | 2024-11-17 10:42 | W.PN.CARDCBS ---
Today's Communication / Plan
-
IV metoprolol
Monitor on tele
Anti-coagulation when safe from a surgical standpoint
Impression / Plan
-
Primary Hoop Punch And Coiler Operator Helper: Dr. ALIYAH Ortega
Assessment:
Presentation with abd pain, vomiting
SBO
PAF with RVR
Relative hypotension associated with above
NICM with improved EF to 45% by echo 10/2023
PAF not on OAC due to prior low burden and fall risk
Coronary artery calcifications by imaging
GERD
asthma
HTN
HLD
Hypothyroidism
Mild dementia
History of chronic UTIs
History of SBO s/p KATE
ECHO 10/2023: EF 46%, mild global hypokinesis, grade 1 diastolic dysfunction
Plan:
#AFib
Sinus rhythm on tele this AM
Cont IV metoprolol, will decrease to 5mg q4hrs
AC when safe from surgical standpoint
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
proBNP is elevated but does not appears volume overloaded on exam
PO Entresto and metoprolol on hold, resume when able to take oral meds
Progress Note - Hoop Punch And Coiler Operator Helper
Subjective
Date of Service: November 17, 2024
NAOE. OR yesterday. Remains in IMU. No cardiac complaints. In sinus rhythm on tele.
Objective
Labs:
11/17/24 04:48
11/17/24 04:48
Labs
Hgb 10.3 g/dL (12.0-16.0) L 11/17/24 04:48
Hct 31.5 % (37.0-47.0) L 11/17/24 04:48
Plt Count 249 10^3/uL (130-400) 11/17/24 04:48
APTT 72.1 Sec (23.4-35.0) H 11/17/24 03:23
Sodium 140 mmol/L (135-145) 11/17/24 04:48
Potassium 4.9 mmol/L (3.5-5.1) D 11/17/24 04:48
BUN 24 mg/dl (7-17) H 11/17/24 04:48
Creatinine 0.5 mg/dL (0.6-1.0) L 11/17/24 04:48
Glucose 116 mg/dl (70-99) H 11/17/24 04:48
Vital Signs and I&O:
Vital Signs
Temp Pulse Resp BP Pulse Ox
98.2 F 86 155/71 98
11/17/24 08:19 11/17/24 06:00 11/17/24 06:00 11/17/24 06:00 11/17/24 10:20
Vital Signs
Temp Pulse Resp BP Pulse Ox
98.2 F 86 155/71 98
11/17/24 08:19 11/17/24 06:00 11/17/24 06:00 11/17/24 06:00 11/17/24 10:20
Intake & Output
11/15/24 11/16/24 11/17/24 11/18/24
06:59 06:59 06:59 06:59
Intake Total 1205 / 1205 1250.4 / 1250.4 660 / 660
Output Total 2150 / 2150 2024 1050 / 1050 325 / 325
Balance -945 / -945 -774.6 / -774.6 -390 / -390 -325 / -325
Physical Exam
Physical Exam
Gen: NAD, AAOx3
HEENT: NC/AT, sclera anicteric, NG tube in place
Neck: No JVD
CV: RRR, NL s1/s2
Lungs: CTAB
Abd: S/ND
Ext: No LE edema
Skin: Warm, dry
Neuro: Non-focal
[2024-11-17 10:57] LABS: APTT 35.3 Sec (23.4-35.0)
[2024-11-17] MEDS: ATIVAN 0.5 MG IV ×2 (10:57→23:23)
--- NOTE | 2024-11-17 10:59 | W.PN.GS2 ---
Today's Communication / Plan
-
clamp trial
Assessment / Plan
-
Pateint is a 79 yo F p/w SBO likely secondary to adhesions POD1 s/p lap KATE
Minimal NGT output, passing flatus, nondistended exam
leukocytosis resolved
hyperkalemia noted
-- clamp trial --> cld, if fails will start tpn
-- NPO, IVF
-- Hep gtt on hold as of 4 AM
-- Nutrition consult for TPN recs
Subjective Data
-
Date of Service: November 17, 2024
Passing flatus, pain controlled, denies n/v with NGT to suction, minimal clear ng output, taking plenty of ice chips
Objective Data
-
Intake and Output
11/16/24 11/17/24 11/18/24
06:59 06:59 06:59
Intake Total 1250.4 / 1250.4 660 / 660
Output Total 2024 1050 / 1050 325 / 325
Balance -774.6 / -774.6 -390 / -390 -325 / -325
Intake:
IV fluids (Total) 960 / 960 150 / 150
NORMOSOL 150 / 150
IV piggybacks 200.4 / 200.4 450 / 450
Amount instilled into GI Tube ( 90 / 90 60 / 60
Total)
[place] Sump 90 / 90 60 / 60
Output:
Gastrointestinal tube output ( 950 / 950 150 / 150
Total)
[place] Sump 950 / 950 150 / 150
Urine, Deg[place] 900 / 900 325 / 325
Straight cath output 1075 / 1075
Vital Signs
Temp Pulse Resp BP Pulse Ox
98.2 F 93 23 154/75 100
11/17/24 08:19 11/17/24 10:55 11/17/24 10:55 11/17/24 10:55 11/17/24 10:55
Lab Results
11/17/24 04:48
11/17/24 04:48
Calcium 7.5 mg/dl (8.4-10.2) L 11/17/24 04:48
Magnesium 2.5 mg/dl (1.6-2.3) H 11/15/24 05:02
Total Bilirubin 1.1 mg/dl (0.2-1.3) 11/15/24 05:02
AST 28 U/L (14-36) 11/15/24 05:02
ALT 19 U/L (0-35) 11/15/24 05:02
Alkaline Phosphatase 71 U/L (38-126) 11/15/24 05:02
Total Protein 6.4 g/dl (6.3-8.2) 11/15/24 05:02
Albumin 3.7 g/dl (3.5-5.0) 11/15/24 05:02
Physical Exam
-
Gen: NAD
Abd: soft, approp ttp, nd, incisions cdi
Patient has a degroot catheter: Yes
Patient has a central line: Yes
--- NOTE | 2024-11-17 10:59 | PTCARENOTE ---
[place] sump off low intermittent suction to gravity as per surgery. NPO strict, no ice chips. Will check residual at 1PM and report to surgery.
[2024-11-17] MEDS: CORDARONE 518 MG IV (12:14)
--- NOTE | 2024-11-17 13:33 | PTCARENOTE ---
Patient out of bed to chair assistance x2 and rolling walker. Tube to gravity. Residual checked at 1pm. 3 mls of clear aspirate. SR/ST on monitor. Spo2 96% on room air. Heparin drip infusing at 1100 units/11 mls/hr last PTT 35.3. Next PTT
assessment 1720. Patient backed to bed resting comfortably. Call rubio in reach.
[2024-11-17] MEDS: LOPRESSOR 5 MG IV ×4 (13:45→23:23)
--- NOTE | 2024-11-17 14:29 | CM ---
Addendum entered by Yoko Daly RN 11/17/24 17:15:
Noting NGT out - on clear liquids.
Addendum entered by Yoko Daly RN 11/17/24 17:08:
Declined by 3/6 SNFs. No response yet from [facility], Viviana Klein.
Spoke with Ирина, patient's daughter; discussed patient's current functional status as per PT/OT. Ирина thinks that the patient has a large copay/deductible for her hospital stay and would have similar large copay/deductible for SNF, so is unsure her
mother will want to go to SNF for rehab. Ирина's daughter/patient's niece is her paid caregiver through the Waiver program, receiving 40 hrs/week caregiver hours. She will need to discuss further with the patient, niece & her sister, and will let
CM know. If patient goes home she agrees to VN.
Plan follow up with daughters for SNF vs home with HH and caregiver.
Original Note:
Patient with Dx Rapid Afib, SBO who is s/p Lap KATE. O2 2L. NGT clamping trial. Receiving IV Amiodarone, Ofirmev gtt, Heparin gtt, IV Lopressor. PT/OT recommend skilled rehab. Per nursing; forgetful.
Spoke with patient's daughter Christine;
discussed short term SNF for rehab. Daughter agrees saying patient lives alone and has some assistance from her niece but could not be cared for a home until she has some rehab. The patient had been to [facility] (now [facility]) in the
remote past however Christine not interested in [facility] again. She says she would like a SNF between [place] (where she lives) and [place] (where her sister Ирина lives) - discussed local SNFs and provided ratings. Agreed on 6 SNFs and
confirm CM will make referrals. Christine requests CM contact Ирина also for her input.
Phone call to Ирина, patient's daughter; left message requesting callback for her input re; SNF preferences.
Plan follow up SNF referral responses and contact daughters.
--- NOTE | 2024-11-17 15:00 | SUR.OPER ---
Patient tolerated clear liquid diet. She got full quickly. Denied any nausea or abdominal pain.
--- NOTE | 2024-11-17 15:10 | PTCARENOTE ---
Removed NG tube without difficulty. Patient tolerated. Advanced to clear liquid.
[2024-11-17] MEDS: OFIRMEV IV (18:03)
[2024-11-17] MEDS: LEVOTHROID 60 MCG IV (18:04)
[2024-11-17] MEDS: HEPARIN 25000 UNITS/250 ML IV (23:57)
[2024-11-18] VITALS (16 sets, daily range): BP systolic 131–155; BP diastolic 59–84
[2024-11-18 00:21] LABS: APTT 86.3 Sec (23.4-35.0)
[2024-11-18] MEDS: LOPRESSOR 5 MG IV ×6 (03:45→23:55)
--- NOTE | 2024-11-18 06:00 | PTCARENOTE ---
Pt AAOx3, forgetful at times. Pt requesting PRN Ativan for anxiety. NS/ST on tele. Placed pt back on 2L NC. SpO2 96%. Amio gtt and heparin gtt continued. PTT therapeutic heparin remains at 1100 units/hr. Pt incontinent of a large loose BM. Pt
passing flatus, pt denies any abdominal pain. Stapleton catheter removed this AM dtv 1200. Call rubio within reach.
[2024-11-18 06:09] LABS: Hemoglobin 10.9 g/dL (12.0-16.0); Mean Corpuscular Hgb 29.9 pg (27.0-31.0); Mean Corpuscular Volume 90.7 fL (81.0-99.0); Mean Platelet Volume 10.4 fL (7.4-10.4); Platelet Count 280 10^3/uL (130-400); Red Blood Cell Count 3.64 10^6/uL (4.20-5.40); White Blood Cell Count 17.4 10^3/uL (4.8-10.8)
[2024-11-18 06:15] LABS: APTT 88.5 Sec (23.4-35.0)
[2024-11-18 06:33] LABS: Blood Urea Nitrogen 19 mg/dl (7-17); Calcium 7.9 mg/dl (8.4-10.2); Carbon Dioxide 29 mmol/L (22-30); Chloride 100 mmol/L (98-107); Estimated Creatinine Clearance 64 ml/min; Glucose 94 mg/dl (70-99); Potassium 3.4 mmol/L (3.5-5.1); Sodium 135 mmol/L (135-145); eGFR > 60.00
[2024-11-18] MEDS: DESENEX/MITRAZOL/ZEASORB 1 APPLIC TOPICAL ×2 (09:45→19:47)
[2024-11-18] MEDS: KCL 270 MEQ IV (09:46)
[2024-11-18] MEDS: REFRESH EYE DROPS (PF) 1 DROPS BOTH EYES ×2 (09:46→19:40)
[2024-11-18] MEDS: PROTONIX IV 40 MG IV (09:47)
[2024-11-18] MEDS: NSS (PRESERVATIVE FREE) 10 ML IV (09:47)
--- NOTE | 2024-11-18 10:10 | W.PN.CARDCBS ---
Addendum entered and electronically signed by Marguerite Bellamy MD 11/18/24 13:00:
I saw and examined the patient.
The Railroad Firer/Fireman's note was reviewed and I agree with the note.
Comment: Cardiac status stable. Telemetry reviewed with brief atrial fibrillation noted. Going to trial liquids today. Continue IV amiodarone, IV heparin, IV Lopressor for now.
If she is stable tomorrow would attempt to convert medications to oral if tolerates.
Continue usual care small bowel obstruction.
Follow telemetry
Follow labs. Replete as needed.
Volume status clinically acceptable
Blood pressure stable.
Resume usual outpatient medications including Entresto when stable.
Original Note:
Today's Communication / Plan
-
continue IV amio gtt, IV lopressor, IV heparin
trial of clear liquids
will attempt to transition to po regimen as ok per surgery
eventual OAC
Impression / Plan
-
Primary Mobility Scooter Repairer: Dr. ALIYAH Ortega
Assessment:
Presentation with abd pain, vomiting
SBO
PAF with RVR
Relative hypotension associated with above
NICM with improved EF to 45% by echo 10/2023
PAF not on OAC due to prior low burden and fall risk
Coronary artery calcifications by imaging
GERD
asthma
HTN
HLD
Hypothyroidism
Mild dementia
History of chronic UTIs
History of SBO s/p KATE
ECHO 10/2023: EF 46%, mild global hypokinesis, grade 1 diastolic dysfunction
Plan:
-starting trial of clears.
-main complaint this morning is diarrhea.
-continue post op care per surgery
-currently in SR/ST on review of tele. brief episode of afib this AM. continue IV amio, IV lopressor
-continue IV heparin. hgb stable at 10.9. eventual transition to OAC
-EF 45-50% by echo 10/2023 as above. does not appear acutely volume overloaded on exam. wean supp O2 as able
-resume OP GDMT as able to resume po meds. she is not candidate for SGLT2 inhibitor due to history of chronic UTIs
-d/w nursing
Progress Note - Mobility Scooter Repairer
Subjective
Date of Service: November 18, 2024
Reports belly is sore. Denies palpitations, chest pain, shortness of breath
Objective
Labs:
11/18/24 05:47
11/18/24 05:47
Labs
Hgb 10.9 g/dL (12.0-16.0) L 11/18/24 05:47
Hct 33.0 % (37.0-47.0) L 11/18/24 05:47
Plt Count 280 10^3/uL (130-400) 11/18/24 05:47
APTT 88.5 Sec (23.4-35.0) H 11/18/24 05:47
Sodium 135 mmol/L (135-145) 11/18/24 05:47
Potassium 3.4 mmol/L (3.5-5.1) L D 11/18/24 05:47
BUN 19 mg/dl (7-17) H 11/18/24 05:47
Creatinine 0.5 mg/dL (0.6-1.0) L 11/18/24 05:47
Glucose 94 mg/dl (70-99) 11/18/24 05:47
Vital Signs and I&O:
Vital Signs
Temp Pulse Resp BP Pulse Ox
98.0 F 106 22 144/82 99
11/18/24 07:28 11/18/24 09:47 11/18/24 06:00 11/18/24 09:47 11/18/24 06:00
Vital Signs
Temp Pulse Resp BP Pulse Ox
98.0 F 106 22 144/82 99
11/18/24 07:28 11/18/24 09:47 11/18/24 06:00 11/18/24 09:47 11/18/24 06:00
Intake & Output
11/16/24 11/17/24 11/18/24 11/19/24
07:59 07:59 07:59 07:59
Intake Total 1250.4 / 1250.4 1481 / 1481 1258 / 1258
Output Total 2024 / 2024 1450 / 1450 1375 / 1375
Balance -774.6 / -774.6 -117 / -117
Physical Exam
Physical Exam
GEN: No distress, awake, alert, oriented x3. on supp O2. frail appearing elderly female
HEENT: supple, anicteric, mmm, eomi
LUNGS: CTA anterolaterally B/L , no wheezes
CV: Reg and tachy, S1/S2, no murmur
ABD: soft, ND
EXT: No cyanosis, clubbing, edema
NEURO: Gross non-focal
SKIN: Warm, pink, dry. No rash
[2024-11-18] MEDS: ATIVAN 0.5 MG IV (11:23)
--- NOTE | 2024-11-18 11:52 | PTCARENOTE ---
I spoke with patient's daughter, Christine, over the phone. Christine has concerns about her mother taking Klonopin and Effexor when she restarts PO medications. She reports her psychiatrist, Janie, was weaning her off the Klonopin. She does not want her
mother to have either of the medications. I advised that I cannot make those decisions but will relay the information. She advised that the doctor can call her if he needed to. Made aware through TT.
--- NOTE | 2024-11-18 12:39 | W.PN.HOSP.TC ---
Today's Communication/Plan
-
Monitor vital signs see plan
Trial of clears
Decrease Klonopin to 0.25 twice daily
Discussed with daughter over the phone
DC IV Ativan
Continue with IV amiodarone, metoprolol
On IV heparin
PT/OT
Assessment / Plan
Assessment / Plan
Assessment:
acute small bowel obstruction
Lactic acidosis from bowel obstruction
- CT: Small bowel obstruction. Suggest a transition in the midline/right para midline mid to lower anterior abdomen.
- s/p laparoscopic KATE 11/16/24
Now with small BM, NG tube out
Surgery following. Started clears
- continue pain control, anti-emetics
- GS following
Now with multiple liquid bowel movement
C. difficile antigen positive, toxin negative. Norovirus negative
monitor
Parox A.fib with RVR
- likely related to acute illness, lack of oral BB. Electrolytes monitored to keep K>4, Mg >2
- continue IV Lopressor with parameters per Cardiology
- continue IV Amiodarone drip (also briefly required IV Cardizem drip)
- IV heparin continues - requires intensive monitoring of PTTs. noted not on AC previously due to prior assessment of higher fall risk
- Echo: EF 45-50%, otherwise normal, no change since 2023
- DCA Cards following
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
- monitor volume status closely (has received IVF)
- holding GDMT (NPO): Metoprolol and Entresto
Non-ischemic myocardial injury in setting of Rapid A. Fib with RVR
- Trop peaked at 1.87
- Echo: EF 45-50%, otherwise normal, no change since 2023
Right upper extremity mild swelling
Has PICC line
Check upper extremity ultrasound
Monitor
CAD
HLD
- hold ASA/Statin
hypokalemia
replete
Essential HTN
- IV Lopressor
- marginal BP in setting of Afib; holding Entresto
CASPER
- improved with IVF, monitor labs
Anxiety/Depression
- Clonazepam/Venlafaxine, Discussed with daughter over the phone 11/18. Patient outpatient psychiatrist was weaning her on benzodiazepine. Will decrease clonazepam to 0.25 twice daily. Restart Effexor. DC IV Ativan.
hypothyroidism - Restart p.o. Synthroid
GERD
- IV PPI
DVT ppx: IV heparin
Code: Full
General: No Apparent Distress
HEENT: Normocephalic, Atraumatic
Respiratory: Negative Wheezes
Cardiac: Regular Rhythm and S1/S2
GI: Soft and Nontender
Genito-urinary: No Costovertebral Tender
Neuro: AO x 3
Psych: Calm
I spent a total of 52 minutes with the patient or on the floor. More than 50% of this time involved counseling and coordination of care.
Anticipated Discharge: > 48 hours
Subjective/Interval History
-
Date of Service: November 18, 2024
Denies pain
Objective Data
-
Labs:
Laboratory Results
11/18/24 11/18/24
05:47 11:45
WBC 17.4 H
Hgb 10.9 L
Hct 33.0 L
Plt Count 280
APTT 88.5 H Cancelled
Sodium 135
Potassium 3.4 L D
Chloride 100
Carbon Dioxide 29
BUN 19 H
Creatinine 0.5 L
Glucose 94
Calcium 7.9 L
Vital Signs:
Vital Signs
Temp Pulse Resp BP Pulse Ox
98.5 F 93 19 146/59 99
11/18/24 11:30 11/18/24 12:00 11/18/24 12:00 11/18/24 12:00 11/18/24 12:11
I&O
11/17/24 11/18/24 11/19/24
06:59 06:59 06:59
Intake Total 1481 / 1481 1258 / 1258
Output Total 1450 / 1450 1375 / 1375 400 / 400
Balance -117 / -117 -400 / -400
--- NOTE | 2024-11-18 17:08 | W.PN.GS2 ---
Today's Communication / Plan
-
-- Fulls
-- OK for Hep gtt
-- Correct lytes, OOB/ambulate
-- Minimize narcotics
Assessment / Plan
-
Pateint is a 79 yo F p/w SBO likely secondary to adhesions POD#2 s/p lap KATE
Leukocytosis
Hyperkalemia
Tachycardic
Recovering well from General Surgery standpoint. Infectious work-up on-going. Common to have looser stools after SBO. Plan to advance to fulls.
R/o cardiopulmonary causes for tachycardia causing elevated WBC
-- Fulls
-- OK for Hep gtt
-- Correct lytes, OOB/ambulate
-- Minimize narcotics
-- Infectious work-up pending, negative thus far
Subjective Data
-
Date of Service: November 18, 2024
Reports some mild abdominal soreness. No nausea or vomiting. Passing flatus and lots of loose stools. Afebrile.
Objective Data
-
Intake and Output
11/17/24 11/18/24 11/19/24
06:59 06:59 06:59
Intake Total 1481 / 1481 1258 / 1258 40 / 40
Output Total 1450 / 1450 1375 / 1375 400 / 400
Balance -117 / -117 -360 / -360
Intake:
Oral fluids 575 / 575
IV fluids (Total) 700 / 700 250 / 250
NORMOSOL 150 / 150
IV piggybacks 721 / 721 433 / 433
Amount instilled into GI Tube ( 60 / 60
Total)
Schley Sump 60 / 60
Fecal management system 40 / 40
irrigation (mL)
Rectum 40 / 40
Output:
Gastrointestinal tube output ( 150 / 150
Total)
Schley Sump 150 / 150
Urine, Degroot 1300 / 1300 1375 / 1375
Urine, Voided 400 / 400
Other:
Number of unmeasured liquid
stools
Rectum 3
Vital Signs
Temp Pulse Resp BP Pulse Ox
98.3 F 118 24 148/84 99
11/18/24 15:13 11/18/24 16:47 11/18/24 14:00 11/18/24 16:47 11/18/24 12:11
Lab Results
11/18/24 05:47
11/18/24 05:47
Calcium 7.9 mg/dl (8.4-10.2) L 11/18/24 05:47
Magnesium 2.5 mg/dl (1.6-2.3) H 11/15/24 05:02
Total Bilirubin 1.1 mg/dl (0.2-1.3) 11/15/24 05:02
AST 28 U/L (14-36) 11/15/24 05:02
ALT 19 U/L (0-35) 11/15/24 05:02
Alkaline Phosphatase 71 U/L (38-126) 11/15/24 05:02
Total Protein 6.4 g/dl (6.3-8.2) 11/15/24 05:02
Albumin 3.7 g/dl (3.5-5.0) 11/15/24 05:02
Physical Exam
-
Gen: NAD
Abd: soft, mild tenderness, mild distension, non-peritoneal, incisions c/d/i - no erythema, ecchymosis or drainage
Patient has a degroot catheter: No
Patient has a central line: No
--- NOTE | 2024-11-18 17:27 | VATNOTE ---
Spoke with Dr Palencia regarding right upper extremity ultrasound results, stated okay to leave right PICC line in place at this time
--- NOTE | 2024-11-18 18:36 | PTCARENOTE ---
Attempted to use FMS to contain patient's loose stool. Patient leaked around tube x2. Tube removed.
[2024-11-18] MEDS: EFFEXOR XR 75 MG PO (21:23)
[2024-11-18] MEDS: EFFEXOR XR 37.5 MG PO (21:23)
[2024-11-18] MEDS: KLONOPIN 0.25 MG PO (21:24)
[2024-11-18] MEDS: CORDARONE 518 MG IV (22:12)
[2024-11-19] VITALS (14 sets, daily range): BP systolic 146–165; BP diastolic 57–124; PULSE 99; O2SAT 93
[2024-11-19] MEDS: HEPARIN 25000 UNITS/250 ML IV ×2 (00:15→22:54)
[2024-11-19] MEDS: LOPRESSOR 5 MG IV ×2 (03:37→08:09)
--- NOTE | 2024-11-19 05:54 | PTCARENOTE ---
Patient AAOx3. Normal sinus to sinus tach on tele. Amiodarone gtt cont. Heparin gtt cont. 94% on room air. Pt had one loose BM. Pt had little to no urine output bladder scanned for 320. Pt had an episode on incontinence saturated amount. Pt denies
any pain. Administered nighttime dose of Klonopin see MAR. Pt utilizing the call rubio, call rubio within reach.
[2024-11-19] MEDS: SYNTHROID 88 MCG PO (06:21)
[2024-11-19 06:44] LABS: Hematocrit 34.7 % (37.0-47.0); Hemoglobin 11.7 g/dL (12.0-16.0); Mean Corp Hgb Conc. 33.7 g/dL (33.0-37.0); Mean Corpuscular Hgb 30.3 pg (27.0-31.0); Mean Corpuscular Volume 89.9 fL (81.0-99.0); Mean Platelet Volume 9.7 fL (7.4-10.4); Platelet Count 293 10^3/uL (130-400); Red Blood Cell Count 3.86 10^6/uL (4.20-5.40); Red Cell Dist. Width 12.8 % (11.5-14.5); White Blood Cell Count 13.4 10^3/uL (4.8-10.8)
[2024-11-19 07:37] LABS: Blood Urea Nitrogen 13 mg/dl (7-17); Calcium 8.3 mg/dl (8.4-10.2); Carbon Dioxide 30 mmol/L (22-30); Chloride 96 mmol/L (98-107); Estimated Creatinine Clearance 64 ml/min; Glucose 104 mg/dl (70-99); Potassium 3.7 mmol/L (3.5-5.1); Sodium 131 mmol/L (135-145); eGFR > 60.00
[2024-11-19] MEDS: KLONOPIN 0.25 MG PO ×2 (08:09→20:34)
[2024-11-19] MEDS: DESENEX/MITRAZOL/ZEASORB 1 APPLIC TOPICAL ×2 (08:09→20:33)
[2024-11-19] MEDS: REFRESH EYE DROPS (PF) 1 DROPS BOTH EYES ×2 (08:09→20:35)
[2024-11-19] MEDS: PROTONIX IV 40 MG IV (08:10)
[2024-11-19] MEDS: NSS (PRESERVATIVE FREE) 10 ML IV (08:10)
--- NOTE | 2024-11-19 08:50 | W.PN.CARDCBS ---
Addendum entered and electronically signed by Sawyer Saunders DO 11/19/24 11:14:
I saw and examined the patient.
The Manager Country's note was reviewed and I agree with the note.
Comment:
Patient seen and examined. Reporting abdominal discomfort. No chest pain, shortness of breath, palpitations. Reports tolerating oral intake without issue currently.
GEN: No distress, awake, alert, oriented x3. frail appearing elderly female
HEENT: supple, anicteric, mmm, eomi
LUNGS: CTA anterolaterally B/L, no wheezes
CV: Reg, S1/S2, no murmur
ABD: Soft mild tender to palpation
EXT: No cyanosis, clubbing, edema
NEURO: Gross non-focal
SKIN: Warm, pink, dry. No rash
Telemetry sinus rhythm PACs, NSVT versus aberrantly conducted AT/AF
A/P as below
Transition to oral medical therapy with p.o. amiodarone p.o. beta-robyn
Await 24-48 hrs. while on IV heparin to ensure patient tolerating orals without issue. If tolerating orals, okay to start Eliquis 5 mg twice daily for stroke risk reduction (does not meet criteria for reduced dosing)
[id number]: 5 (hypertension, cardiomyopathy, age, gender).
Continue to resume goal-directed medical therapy as able including Entresto as BP and oral intake allows
Original Note:
Today's Communication / Plan
-
transition IV amio and IV lopressor to po amio and po toprol
hopefully transition IV heparin to eliquis in 24-48 hours
resume GDMT as able
post op care
Impression / Plan
-
Primary Ballistics Expert: Dr. ALIYAH Ortega
Assessment:
Presentation with abd pain, vomiting
SBO
PAF with RVR
Relative hypotension associated with above
NICM with improved EF to 45% by echo 10/2023
PAF not on OAC due to prior low burden and fall risk
Coronary artery calcifications by imaging
GERD
asthma
HTN
HLD
Hypothyroidism
Mild dementia
History of chronic UTIs
History of SBO s/p KATE
ECHO 10/2023: EF 46%, mild global hypokinesis, grade 1 diastolic dysfunction
Plan:
-Patient reports remains with pain
-Tolerating full liquids
-Continue postop care per surgery
-Remains in sinus rhythm on review of telemetry. Will transition IV Amio and IV Lopressor to p.o. Amio and Toprol 50 mg twice daily. Repeat EKG in a.m. to reassess QTc
-Continue IV heparin additional 24 hours. Hemoglobin stable at 11.7. Hopefully transition to eliquis in next 24-48 hours, was not on OAC prior to admission
-EF 45-50% by echo 10/2023 as above. does not appear acutely volume overloaded on exam. on room air
-resume OP GDMT as able to resume po meds. she is not candidate for SGLT2 inhibitor due to history of chronic UTIs
-d/w nursing
Progress Note - Ballistics Expert
Subjective
Date of Service: November 19, 2024
Reports continues with some pain. no CP, SOB, palpitations.
Objective
Labs:
11/19/24 06:37
11/19/24 06:37
Labs
Hgb 11.7 g/dL (12.0-16.0) L 11/19/24 06:37
Hct 34.7 % (37.0-47.0) L 11/19/24 06:37
Plt Count 293 10^3/uL (130-400) 11/19/24 06:37
APTT Cancelled 11/19/24 06:37
Sodium 131 mmol/L (135-145) L 11/19/24 06:37
Potassium 3.7 mmol/L (3.5-5.1) 11/19/24 06:37
BUN 13 mg/dl (7-17) 11/19/24 06:37
Creatinine 0.5 mg/dL (0.6-1.0) L 11/19/24 06:37
Glucose 104 mg/dl (70-99) H 11/19/24 06:37
Vital Signs and I&O:
Vital Signs
Temp Pulse Resp BP Pulse Ox
97.9 F 96 18 153/76 90
11/19/24 04:45 11/19/24 08:09 11/19/24 06:00 11/19/24 08:09 11/19/24 06:00
Vital Signs
Temp Pulse Resp BP Pulse Ox
97.9 F 96 18 153/76 90
11/19/24 04:45 11/19/24 08:09 11/19/24 06:00 11/19/24 08:09 11/19/24 06:00
Intake & Output
11/17/24 11/18/24 11/19/24 11/20/24
07:59 07:59 07:59 07:59
Intake Total 1481 / 1481 1258 / 1258 1036.4 / 1036.4
Output Total 1450 / 1450 1375 / 1375
Balance -117 / -117 1036.4 / 1036.4
Physical Exam
Physical Exam
GEN: No distress, awake, alert, oriented x3. frail appearing elderly female
HEENT: supple, anicteric, mmm, eomi
LUNGS: CTA anterolaterally B/L, no wheezes
CV: Reg, S1/S2, no murmur
EXT: No cyanosis, clubbing, edema
NEURO: Gross non-focal
SKIN: Warm, pink, dry. No rash
[2024-11-19 08:54] LABS: APTT 102.8 Sec (23.4-35.0)
[2024-11-19] MEDS: TOPROL XL 50 MG PO ×2 (11:32→20:35)
--- NOTE | 2024-11-19 11:33 | W.PN.HOSP.TC ---
Addendum entered and electronically signed by Mik Palencia MD 11/19/24 13:32:
Abnormal lab value clinically insignificant; no signs of bleeding
Addendum entered and electronically signed by Mik Palencia MD 11/19/24 13:21:
hyponatremia
Original Note:
Today's Communication/Plan
-
Monitor vitals
See plan
Advance diet to full's, monitor continue with amiodarone, metoprolol
PT/OT
If blood pressure tolerates then restart Entresto
Assessment / Plan
Assessment / Plan
Assessment:
acute small bowel obstruction
Lactic acidosis from bowel obstruction
- CT: Small bowel obstruction. Suggest a transition in the midline/right para midline mid to lower anterior abdomen.
- s/p laparoscopic AKTE 11/16/24
Now with small BM, NG tube out
Surgery following. Now diet advanced to full's. Will monitor
- continue pain control, anti-emetics
- GS following
Now with multiple liquid bowel movement
C. difficile antigen positive, toxin negative. Norovirus negative
monitor
Symptoms improving
Parox A.fib with RVR
- likely related to acute illness, lack of oral BB
- continue IV Lopressor with parameters per Cardiology
Currently on IV amiodarone, Change to oral if tolerating diet
- IV heparin continues - requires intensive monitoring of PTTs. noted not on AC previously due to prior assessment of higher fall risk
CHADVASC 5
- Echo: EF 45-50%, otherwise normal, no change since 2023
- DCA Cards following
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
- monitor volume status closely (has received IVF)
- Metoprolol and Entresto;Restart Entresto when okay with cardiology
Non-ischemic myocardial injury in setting of Rapid A. Fib with RVR
- Trop peaked at 1.87
- Echo: EF 45-50%, otherwise normal, no change since 2023
Right upper extremity mild swelling
Has PICC line
Check upper extremity ultrasound with SVT. warm compresses
Monitor
CAD
HLD
- hold ASA/Statin
hypokalemia
replete
Essential HTN
monitor
CASPER
- improved with IVF, monitor labs
Anxiety/Depression
- Clonazepam/Venlafaxine, Discussed with daughter over the phone 11/18. Patient outpatient psychiatrist was weaning her on benzodiazepine. Will decrease clonazepam to 0.25 twice daily. Restarted Effexor. DC IV Ativan.
hypothyroidism - Restarted p.o. Synthroid
GERD
- PPI
DVT ppx: IV heparin
Code: Full
General: No Apparent Distress
HEENT: Normocephalic, Atraumatic
Respiratory: Negative Wheezes
Cardiac: Regular Rhythm and S1/S2
GI: Soft and Nontender
Genito-urinary: No Costovertebral Tender
Neuro: AO x 3
Psych: Calm
PT/OT rec SNF
I spent a total of 51 minutes with the patient or on the floor. More than 50% of this time involved counseling and coordination of care.
Anticipated Discharge: 24 - 48 hours
Subjective/Interval History
-
Date of Service: November 19, 2024
Denies nausea
Objective Data
-
Labs:
Laboratory Results
11/19/24 11/19/24
06:37 08:24
WBC 13.4 H
Hgb 11.7 L
Hct 34.7 L
Plt Count 293
APTT Cancelled 102.8 H
Sodium 131 L
Potassium 3.7
Chloride 96 L
Carbon Dioxide 30
BUN 13
Creatinine 0.5 L
Glucose 104 H
Calcium 8.3 L
Vital Signs:
Vital Signs
Temp Pulse Resp BP Pulse Ox
97.7 F 94 24 165/81 93
11/19/24 07:54 11/19/24 10:00 11/19/24 10:00 11/19/24 10:00 11/19/24 10:00
I&O
11/18/24 11/19/24 11/20/24
06:59 06:59 06:59
Intake Total 1258 / 1258 1036.4 / 1036.4
Output Total 1375 / 1375
Balance -117 / -117 1036.4 / 1036.4
[2024-11-19] MEDS: PACERONE 400 MG PO ×2 (11:34→20:36)
--- NOTE | 2024-11-19 12:13 | W.PN.GS2 ---
Today's Communication / Plan
-
Adv to LRD
s/o
Assessment / Plan
-
Pateint is a 79 yo F p/w SBO likely secondary to adhesions POD#3 s/p lap KATE
Leukocytosis improving
Hyperkalemia normalized
Tachycardia resolved
Recovering well from General Surgery standpoint. Infectious work-up on-going. Common to have looser stools after SBO. Plan to advance to fulls.
R/o cardiopulmonary causes for tachycardia causing elevated WBC
-- Adv to LRD
-- OK for Hep gtt
-- Correct lytes, OOB/ambulate
-- Minimize narcotics
-- Infectious work-up pending, negative thus far
-- GS will s/o pls call with ?s
Subjective Data
-
Date of Service: November 19, 2024
No complaints, pain controlled, passing flatus and BM, dereck fld without issues
Objective Data
-
Intake and Output
11/18/24 11/19/24 11/20/24
06:59 06:59 06:59
Intake Total 1258 / 1258 1036.4 / 1036.4
Output Total 1375 / 1375
Balance -117 / -117 1036.4 / 1036.4
Intake:
Oral fluids 575 / 575 360 / 360
IV fluids (Total) 250 / 250
IV piggybacks 433 / 433 636.4 / 636.4
Fecal management system 40 / 40
irrigation (mL)
Rectum 40 / 40
Output:
Urine, Degroot 1375 / 1375
Other:
How many times incontinent 2
MODERATE amount urine
How many times incontinent 1
SATURATED amount urine
Number of unmeasured liquid
stools
Rectum 1
Vital Signs
Temp Pulse Resp BP Pulse Ox
97.7 F 99 24 149/72 93
11/19/24 07:54 11/19/24 11:34 11/19/24 10:00 11/19/24 11:34 11/19/24 10:00
Lab Results
11/19/24 06:37
11/19/24 06:37
Calcium 8.3 mg/dl (8.4-10.2) L 11/19/24 06:37
Magnesium 2.5 mg/dl (1.6-2.3) H 11/15/24 05:02
Total Bilirubin 1.1 mg/dl (0.2-1.3) 11/15/24 05:02
AST 28 U/L (14-36) 11/15/24 05:02
ALT 19 U/L (0-35) 11/15/24 05:02
Alkaline Phosphatase 71 U/L (38-126) 11/15/24 05:02
Total Protein 6.4 g/dl (6.3-8.2) 11/15/24 05:02
Albumin 3.7 g/dl (3.5-5.0) 11/15/24 05:02
Physical Exam
-
Gen: NAD
Abd: soft, nd, approp ttp, incisions cdi
Patient has a degroot catheter: Yes
Patient has a central line: Yes
--- NOTE | 2024-11-19 13:05 | PN.CDI ---
CDI
- -
CDI:
Physician Documentation Request
Admit Date: 11/11/24 17:59
Dear Doctor Marian
11/16 patient underwent Laparoscopic lysis of adhesions for small bowel obstruction.
Could you please provide further specification of the bowel obstruction:
complete
partial
Other
Use of terms such as suspected, likely, concern for, or probable (associated with a specific diagnosis that is being evaluated, monitored, or treated as if it exists) are acceptable and can be coded in the inpatient setting, when documented at the
time of discharge.
Thank you,
Елена Ocampo RN, BSN
CDI Specialist
tiger text
Please use your independent medical judgment in providing your response.
--- NOTE | 2024-11-19 13:13 | PN.CDI ---
CDI
- -
CDI:
Physician Documentation Request
Admit Date: 11/11/24 17:59
Dear Doctor Talha,
Patient admitted for management of small bowel obstruction.
Recent sodium results:
11/17/24 11/18/24 11/19/24
04:48 05:47 06:37
Sodium 140 135 131 L
Could you please provide a diagnosis that supports the above lab abnormalities and additional evaluation, monitoring:
hyponatremia
abnormal lab value clinically insignificant
Other
Use of terms such as suspected, likely, concern for, or probable (associated with a specific diagnosis that is being evaluated, monitored, or treated as if it exists) are acceptable and can be coded in the inpatient setting, when documented at the
time of discharge.
Thank you,
Елена Ocampo RN, BSN
CDI Specialist
tiger text
Please use your independent medical judgment in providing your response.
--- NOTE | 2024-11-19 13:18 | PN.CDI ---
CDI
- -
CDI:
Physician Documentation Request
Admit Date: 11/11/24 17:59
Dear Doctor Talha
11/16 patient underwent Laparoscopic lysis of adhesions for small bowel obstruction.
H/H results
Laboratory Tests
11/11/24 11/14/24 11/16/24
13:44 04:59 04:11
Hgb 14.9 12.5 11.8 L
Hct 44.3 37.3 36.9 L
11/17/24
04:48
Hgb 10.3 L
Hct 31.5 L
Could you please provide a diagnosis that supports the above lab abnormalities and additional evaluation/monitoring?
Acute blood loss anemia
Anemia -other (Specify type)
Abnormal lab value clinically insignificant
Other
Use of terms such as suspected, likely, concern for, or probable (associated with a specific diagnosis that is being evaluated, monitored, or treated as if it exists) are acceptable and can be coded in the inpatient setting, when documented at the
time of discharge.
Thank you,
Елена Ocampo RN, BSN
CDI Specialist
tiger text
Please use your independent medical judgment in providing your response.
[2024-11-19] MEDS: TYLENOL 650 MG PO (13:20)
--- NOTE | 2024-11-19 17:15 | PTCARENOTE ---
Patient's diet advanced to Low residue per 's orders.
--- NOTE | 2024-11-19 17:26 | CM ---
Patient with Dx Rapid Afib, SBO who is s/p Lap KATE. Room air. Low residue diet. Receiving Heparin gtt, PO Amio. PT/OT recommend skilled rehab.
Spoke with patient's daughter Christine; she spoke with her sister Ирина who will talk with her mother tomorrow about going to Rehab. SNF referrals reviewed - Christine aware that [facility] has accepted.
Plan follow up with patient/daughters re; SNF for rehab vs home with HH.
[2024-11-19] MEDS: EFFEXOR XR 75 MG PO (20:35)
[2024-11-19] MEDS: NEURONTIN 300 MG PO (20:35)
[2024-11-19] MEDS: EFFEXOR XR 37.5 MG PO (20:35)
--- NOTE | 2024-11-19 23:20 | PTCARENOTE ---
Received patient at change of shift. Patient aaox3, confusion and forgetfulness noted at times. ST on the monitor, positive radial pulses, weak pedal pulses b/l. Lungs diminished thoughout. Bs active x4, patient incontinent of bowel and bladder.
Patient with right DL PICC, Heparin running at 1100u/11ml/hr. Next heparin level in am. Patient repositioned for pressure relief and comfort. Ice pack applied to patients neck per patient request. Will continue to monitor.
[2024-11-20] VITALS (12 sets, daily range): BP systolic 142–165; BP diastolic 71–106
[2024-11-20 03:55] LABS: Hematocrit 34.3 % (37.0-47.0); Hemoglobin 11.6 g/dL (12.0-16.0); Mean Corp Hgb Conc. 33.8 g/dL (33.0-37.0); Mean Corpuscular Hgb 30.1 pg (27.0-31.0); Mean Corpuscular Volume 89.1 fL (81.0-99.0); Mean Platelet Volume 10.2 fL (7.4-10.4); Platelet Count 323 10^3/uL (130-400); Red Blood Cell Count 3.85 10^6/uL (4.20-5.40); Red Cell Dist. Width 12.6 % (11.5-14.5); White Blood Cell Count 12.6 10^3/uL (4.8-10.8)
[2024-11-20 04:07] LABS: APTT 87.6 Sec (23.4-35.0)
[2024-11-20 04:16] LABS: Blood Urea Nitrogen 11 mg/dl (7-17); Calcium 8.7 mg/dl (8.4-10.2); Carbon Dioxide 33 mmol/L (22-30); Chloride 95 mmol/L (98-107); Estimated Creatinine Clearance 64 ml/min; Glucose 91 mg/dl (70-99); Potassium 3.4 mmol/L (3.5-5.1); Sodium 133 mmol/L (135-145); eGFR > 60.00
[2024-11-20 04:33] LABS: % Basophils 0.2 % (0-2); % Eosinophils 1.9 % (0-6); % Immature Granulocytes 3.7 % (0-0.5); % Lymphocytes 17.9 % (20.5-51.1); % Monocytes 5.2 % (1.7-9.3); % Neutrophils 71.1 % (42.2-75.2); Absolute Eosinophils 0.2 10^3/uL (0-0.7); Absolute Immature Granulocytes 0.5 10^3/uL (0-0.05); Absolute Lymphocytes 2.3 10^3/uL (1.2-3.4); Absolute Monocytes 0.7 10^3/uL (0.1-0.6); Nucleated Red Blood Cells % 0.2 %
[2024-11-20] MEDS: SYNTHROID 88 MCG PO (05:28)
[2024-11-20] MEDS: KCL 40 MEQ PO (05:28)
--- NOTE | 2024-11-20 07:12 | W.PN.HOSP.TC ---
Today's Communication/Plan
-
PO vancomycin
amiodarone, hep gtt switched to Eliquis as per Cardio
PT/OT
ok to downgrade to Tele
Assessment / Plan
Assessment / Plan
Physical Exam
General: No Apparent Distress
HEENT: Normocephalic, Atraumatic
Respiratory: Negative Wheezes
Cardiac: Regular Rhythm and S1/S2
GI: Soft and Nontender
Genito-urinary: No Costovertebral Tender
Neuro: AO x 3
Psych: Calm
56M ETOH cirrhosis here for GIB and hepatic encephalopathy complicated with aspiration pneumonia delirium
acute small bowel obstruction
Lactic acidosis from bowel obstruction
- CT: Small bowel obstruction. Suggest a transition in the midline/right para midline mid to lower anterior abdomen.
- s/p laparoscopic KATE 11/16/24
Now with small BM, NG tube out
Surgery eval appreciated diet advanced to Low Residue tolerating
- continue pain control, anti-emetics
Diarrhea
C. difficile antigen positive, toxin negative. Norovirus negative
PO vancomycin started empirically
Probiotic resumed
Parox A.fib with RVR
- likely related to acute illness, lack of oral BB
- Metoprolol Amiodarone as per Cardio
- IV heparin gtt transitioned to Eliquis
- CHADVASC 5
- Echo: EF 45-50%, otherwise normal, no change since 2023
- DCA Cards eval appreciated
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
- monitor volume status closely (has received IVF)
- Metoprolol and Entresto;Restart Entresto when okay with cardiology
Non-ischemic myocardial injury in setting of Rapid A. Fib with RVR
- Trop peaked at 1.87
- Echo: EF 45-50%, otherwise normal, no change since 2023
Right upper extremity mild swelling
Has PICC line
US appreciated superficial thrombus. warm compresses
PICC to be discontinued in favor of peripheral access if possible or midline/picc to be placed LUE
CAD
HLD
- hold ASA/Statin
hypokalemia
replete
Essential HTN
monitor
CASPER
- improved with IVF, monitor labs
Anxiety/Depression
- Clonazepam/Venlafaxine,
- clonazepam tapered to 0.25 twice daily. cont home Effexor. IV Ativan discontinued
hypothyroidism - cont home Synthroid
GERD
- PPI
DVT ppx: IV heparin switched to Eliquis as per Cardio
Code: Full
PT/OT rec SNF (especially important to reduce risk of falls while on anticoagulation as above)
Medically stable for downgrade to Tele
discussed with patient and patient's daughter Christine
I spent a total of 45 minutes with the patient or on the floor. More than 50% of this time involved counseling and coordination of care.
Anticipated Discharge: 24 - 48 hours
Subjective/Interval History
-
Date of Service: November 20, 2024
Seen and examined at bedside in no acute distress resting comfortably in bed. Diarrhea persists.
Objective Data
-
Labs:
Laboratory Results
11/20/24
03:22
WBC 12.6 H
Hgb 11.6 L
Hct 34.3 L
Plt Count 323
APTT 87.6 H
Sodium 133 L
Potassium 3.4 L
Chloride 95 L
Carbon Dioxide 33 H
BUN 11
Creatinine 0.6
Glucose 91
Calcium 8.7
Vital Signs:
Vital Signs
Temp Pulse Resp BP Pulse Ox
98.3 F 84 21 144/73 92
11/20/24 03:12 11/20/24 06:00 11/20/24 06:00 11/20/24 06:00 11/20/24 06:00
I&O
11/19/24 11/20/24 11/21/24
06:59 06:59 06:59
Intake Total 1036.4 / 1036.4 864 / 864
Balance 1036.4 / 1036.4 864 / 864
[2024-11-20] MEDS: PACERONE 400 MG PO (08:10)
[2024-11-20] MEDS: VITAMIN B-12 1000 MCG PO (08:10)
[2024-11-20] MEDS: PROTONIX IV 40 MG IV (08:11)
[2024-11-20] MEDS: REFRESH EYE DROPS (PF) 1 DROPS BOTH EYES ×2 (08:11→19:42)
[2024-11-20] MEDS: TOPROL XL 50 MG PO ×2 (08:11→19:43)
[2024-11-20] MEDS: KLONOPIN 0.25 MG PO ×2 (08:11→19:41)
[2024-11-20] MEDS: DESENEX/MITRAZOL/ZEASORB 1 APPLIC TOPICAL ×2 (08:12→19:40)
[2024-11-20] MEDS: NSS (PRESERVATIVE FREE) 10 ML IV (08:12)
--- NOTE | 2024-11-20 10:00 | PTCARENOTE ---
Patient AAOx3, occasional forgetfulness. States she cannot lift her arms but is seen actively feeding herself and moving arms. C/o RUE soreness, elevated on pillow. Daughters updated at bedside. Tolerating low res diet. NST on monitor. VSS. Heparin
gtt infusing per protocol. Patient requiring a lot of encouragement to be independent with some tasks. Will continue to closely monitor.
--- NOTE | 2024-11-20 11:15 | W.PN.CARDCBS ---
Today's Communication / Plan
-
Resume oral medications as indicated
Transition from heparin to oral anticoagulation as patient is tolerating oral intake
Reduce amiodarone to 200 mg twice daily and repeat EKG in a.m.
Monitor on telemetry, replete electrolytes
Impression / Plan
-
Primary Conciliation Court Judge: Dr. ALIYAH Ortega
Assessment:
Presentation with abd pain, vomiting
SBO
PAF with RVR, SR on telemetry
Relative hypotension associated with above
NICM with improved EF to 45% by echo 10/2023
PAF not on OAC due to prior low burden and fall risk
Coronary artery calcifications by imaging
GERD
asthma
HTN
HLD
Hypothyroidism
Mild dementia
History of chronic UTIs
History of SBO s/p KATE
ECHO 10/2023: EF 46%, mild global hypokinesis, grade 1 diastolic dysfunction
Plan:
-Patient reports remains with pain, improving overall
-Tolerating advancing diet, no issues with PO medical therapy
-Continue postop care per surgery
-Remains in sinus rhythm on review of telemetry. Tolerating p.o. Amio and Toprol 50 mg twice daily. QT/QTc mildly increased, will decrease amio to 200 mg BID, repeat ekg in AM
-Hemoglobin stable at 11.7. transition to OAC (Eliquis 5 mg BID - < 85y, Cr < 1.5, Wt >65kg; criteria for 5 mg dosing), DC heparin gtt
-EF 45-50% by echo 10/2023 as above. does not appear acutely volume overloaded on exam. on room air
-resume OP GDMT including entresto, atorvastatin as able; will plan to start tonight with hold parameters. she is not candidate for SGLT2 inhibitor due to history of chronic UTIs
-d/w nursing
Progress Note - Conciliation Court Judge
Subjective
Date of Service: November 20, 2024
Patient seen and examined. No acute events overnight. Patient resting comfortably in bed noting mild abdominal discomfort. Patient notes that she is tolerating all oral medications as well as her advancing diet. No nausea, vomiting, chest pain,
shortness of breath, palpitations, or weakness.
Objective
Labs:
11/20/24 03:22
11/20/24 03:22
Labs
Hgb 11.6 g/dL (12.0-16.0) L 11/20/24 03:22
Hct 34.3 % (37.0-47.0) L 11/20/24 03:22
Plt Count 323 10^3/uL (130-400) 11/20/24 03:22
APTT 87.6 Sec (23.4-35.0) H 11/20/24 03:22
Sodium 133 mmol/L (135-145) L 11/20/24 03:22
Potassium 3.4 mmol/L (3.5-5.1) L 11/20/24 03:22
BUN 11 mg/dl (7-17) 11/20/24 03:22
Creatinine 0.6 mg/dL (0.6-1.0) 11/20/24 03:22
Glucose 91 mg/dl (70-99) 11/20/24 03:22
Vital Signs and I&O:
Vital Signs
Temp Pulse Resp BP Pulse Ox
98.5 F 98 21 144/73 92
11/20/24 07:27 11/20/24 08:10 11/20/24 06:00 11/20/24 08:10 11/20/24 06:00
Vital Signs
Temp Pulse Resp BP Pulse Ox
98.5 F 98 21 144/73 92
11/20/24 07:27 11/20/24 08:10 11/20/24 06:00 11/20/24 08:10 11/20/24 06:00
Intake & Output
11/18/24 11/19/24 11/20/24 11/21/24
06:59 06:59 06:59 06:59
Intake Total 1258 / 1258 1036.4 / 1036.4 864 / 864
Output Total 1375 / 1375
Balance -117 / -117 1036.4 / 1036.4 864 / 864
Physical Exam
Physical Exam
GEN: No distress, awake, alert, oriented x3. frail appearing elderly female
HEENT: supple, anicteric, mmm, eomi
LUNGS: CTA anterolaterally B/L, no wheezes
CV: Reg, S1/S2, no murmur
EXT: No cyanosis, clubbing, edema
NEURO: Gross non-focal
SKIN: Warm, pink, dry. No rash
[2024-11-20] MEDS: FIRVANQ 125 MG PO ×3 (11:53→23:09)
--- NOTE | 2024-11-20 13:46 | CM ---
Patient's daughter calld CM office; and left a voice message to send SNF referral to [facility];
SNF referral sent via [facility]
[2024-11-20] MEDS: VISBIOME 1 CAP PO (18:28)
[2024-11-20] MEDS: ELIQUIS 5 MG PO (19:41)
[2024-11-20] MEDS: PACERONE 200 MG PO (19:42)
--- NOTE | 2024-11-20 21:53 | PTCARENOTE ---
Patient aao x3 at start of shift. Able to make needs known, however confused and forgetful at times and requiring frequent reminders and reinforcement of education and instructions. ST on the monitor, positive radial pulses, weak pedal pulses bl,
trace LE edema noted as well as trace right fa edema noted. RUE DL PICC removed on previous shift, dressing intact. Patient has left fa 22g, no fluids running at this time. Lungs cta throughout, bs active x4. MASD to groin and buttocks, ointment
applied. Patient currently resting in bed with no s/s of pain or discomfort. Will continue to monitor.
[2024-11-20] MEDS: NEURONTIN 300 MG PO (23:09)
[2024-11-20] MEDS: EFFEXOR XR 75 MG PO (23:09)
[2024-11-20] MEDS: EFFEXOR XR 37.5 MG PO (23:09)
[2024-11-21] VITALS (12 sets, daily range): BP systolic 133–172; BP diastolic 64–85; BMI 26.5
[2024-11-21 04:27] LABS: Hematocrit 33.3 % (37.0-47.0); Hemoglobin 11.4 g/dL (12.0-16.0); Mean Corp Hgb Conc. 34.2 g/dL (33.0-37.0); Mean Corpuscular Hgb 29.7 pg (27.0-31.0); Mean Corpuscular Volume 86.7 fL (81.0-99.0); Mean Platelet Volume 9.6 fL (7.4-10.4); Platelet Count 341 10^3/uL (130-400); Red Blood Cell Count 3.84 10^6/uL (4.20-5.40); White Blood Cell Count 13.3 10^3/uL (4.8-10.8)
[2024-11-21] MEDS: FIRVANQ 125 MG PO ×4 (04:41→23:02)
[2024-11-21] MEDS: SYNTHROID 88 MCG PO (04:41)
[2024-11-21 04:54] LABS: Blood Urea Nitrogen 16 mg/dl (7-17); Calcium 8.9 mg/dl (8.4-10.2); Carbon Dioxide 30 mmol/L (22-30); Chloride 97 mmol/L (98-107); Estimated Creatinine Clearance 55 ml/min; Glucose 99 mg/dl (70-99); Magnesium 1.5 mg/dl (1.6-2.3); Sodium 133 mmol/L (135-145); eGFR > 60.00
[2024-11-21] MEDS: MAGNESIUM SULFATE 102 GRAMS IV (06:04)
--- NOTE | 2024-11-21 07:21 | W.PN.HOSP.TC ---
Today's Communication/Plan
-
PO vancomycin
Entresto Statin resumed as per Cardio
amiodarone
Eliquis
PT/OT
ok to downgrade to Tele
Discharge planning SNF rehab
Check Urinalysis
Assessment / Plan
Assessment / Plan
Physical Exam
General: No Apparent Distress
HEENT: Normocephalic, Atraumatic
Respiratory: Negative Wheezes
Cardiac: Regular Rhythm and S1/S2
GI: Soft and Nontender
Genito-urinary: No Costovertebral Tender
Neuro: AO x 3
Psych: Calm
56M ETOH cirrhosis here for GIB and hepatic encephalopathy complicated with aspiration pneumonia delirium
acute small bowel obstruction
Lactic acidosis from bowel obstruction
- CT: Small bowel obstruction. Suggest a transition in the midline/right para midline mid to lower anterior abdomen.
- s/p laparoscopic KATE 11/16/24
Now with small BM, NG tube out
Surgery eval appreciated diet advanced to Low Residue tolerating
- continue pain control, anti-emetics
Diarrhea
C. difficile antigen positive, toxin negative. Norovirus negative
PO vancomycin started empirically
Probiotic resumed
Diarrhea since resolved
Parox A.fib with RVR
- likely related to acute illness, lack of oral BB
- Metoprolol Amiodarone as per Cardio
- IV heparin gtt transitioned to Eliquis
- CHADVASC 5
- Echo: EF 45-50%, otherwise normal, no change since 2023
- DCA Cards eval appreciated
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
- monitor volume status closely (has received IVF)
- Metoprolol and Entresto
Non-ischemic myocardial injury in setting of Rapid A. Fib with RVR
- Trop peaked at 1.87
- Echo: EF 45-50%, otherwise normal, no change since 2023
Right upper extremity mild swelling
Has PICC line
US appreciated superficial thrombus. warm compresses
Peripheral access obtained, PICC discontinued
CAD
HLD
- ASA on hold
- Statin resumed
hypokalemia
monitor and replete as necessary
Essential HTN
monitor
Anxiety/Depression
- Clonazepam/Venlafaxine,
- clonazepam tapered to 0.25 twice daily. cont home Effexor. IV Ativan discontinued
hypothyroidism - cont home Synthroid
GERD
- PPI
DVT ppx: Eliquis
Code: Full
PT/OT rec SNF (especially important to reduce risk of falls while on anticoagulation as above)
Medically stable for downgrade to Tele
discussed with patient and patient's daughter Christine
I spent a total of 45 minutes with the patient or on the floor. More than 50% of this time involved counseling and coordination of care.
Anticipated Discharge: 24 - 48 hours
Subjective/Interval History
-
Date of Service: November 21, 2024
No acute distress appears comfortable at this time. Reports resolution of diarrhea.
Objective Data
-
Labs:
Laboratory Results
11/21/24 11/21/24
04:06 06:00
WBC 13.3 H
Hgb 11.4 L
Hct 33.3 L
Plt Count 341
APTT Cancelled
Sodium 133 L
Potassium 4.0
Chloride 97 L
Carbon Dioxide 30
BUN 16
Creatinine 0.7
Glucose 99
Calcium 8.9
Vital Signs:
Vital Signs
Temp Pulse Resp BP Pulse Ox
98.3 F 91 19 142/71 92
11/21/24 03:00 11/21/24 06:00 11/21/24 06:00 11/21/24 06:00 11/21/24 06:00
I&O
11/20/24 11/21/24 11/22/24
06:59 06:59 06:59
Intake Total 864 / 864 120 / 120
Balance 864 / 864 120 / 120
--- NOTE | 2024-11-21 09:00 | W.PN.CARDCBS ---
Today's Communication / Plan
-
Resume blood work medical therapy with Entresto, atorvastatin this evening
Monitor on telemetry
Continue amiodarone, beta-robyn, anticoagulation
Impression / Plan
-
Primary Prison Warden: Dr. ALIYAH Ortega
Assessment:
Presentation with abd pain, vomiting
SBO status post lap KATE on 11/16/2024
PAF with RVR, SR on telemetry
Relative hypotension associated with above
NICM with improved EF to 45% by echo 10/2023
PAF not on OAC due to prior low burden and fall risk
Coronary artery calcifications by imaging
GERD
asthma
HTN
HLD
Hypothyroidism
Mild dementia
History of chronic UTIs
History of SBO s/p KATE
ECHO 10/2023: EF 46%, mild global hypokinesis, grade 1 diastolic dysfunction
Plan:
-Patient reports remains with pain, improving overall
-Tolerating advancing diet, no issues with PO medical therapy
-Continue postop care per surgery
-Remains in sinus rhythm on review of telemetry. Tolerating p.o. Amio and Toprol 50 mg twice daily. QT/QTc mildly increased improved with reduced dose, continue Amio 200 mg twice daily for 1 week, reduce to 200 mg daily after that
-Hemoglobin stable at 11.7. transition to OAC (Eliquis 5 mg BID - < 85y, Cr < 1.5, Wt >65kg; criteria for 5 mg dosing), DC heparin gtt
-EF 45-50% by echo 10/2023 as above. does not appear acutely volume overloaded on exam. on room air
-resume OP GDMT including entresto, atorvastatin as able; will plan to start tonight with hold parameters. she is not candidate for SGLT2 inhibitor due to history of chronic UTIs
-d/w nursing
Progress Note - Prison Warden
Subjective
Date of Service: November 21, 2024
Patient seen and examined's morning. No acute events overnight. Patient reporting abdominal discomfort, neck discomfort, leg discomfort. Denies any chest pain, shortness of breath, palpitations. Telemetry demonstrates sinus rhythm, no recurrence
of AF. Occasional PVC.
Objective
Labs:
11/21/24 04:06
11/21/24 04:06
Labs
Hgb 11.4 g/dL (12.0-16.0) L 11/21/24 04:06
Hct 33.3 % (37.0-47.0) L 11/21/24 04:06
Plt Count 341 10^3/uL (130-400) 11/21/24 04:06
APTT Cancelled 11/21/24 06:00
Sodium 133 mmol/L (135-145) L 11/21/24 04:06
Potassium 4.0 mmol/L (3.5-5.1) 11/21/24 04:06
BUN 16 mg/dl (7-17) 11/21/24 04:06
Creatinine 0.7 mg/dL (0.6-1.0) 11/21/24 04:06
Glucose 99 mg/dl (70-99) 11/21/24 04:06
Vital Signs and I&O:
Vital Signs
Temp Pulse Resp BP Pulse Ox
98.3 F 91 19 142/71 92
11/21/24 03:00 11/21/24 06:00 11/21/24 06:00 11/21/24 06:00 11/21/24 06:00
Vital Signs
Temp Pulse Resp BP Pulse Ox
98.3 F 91 19 142/71 92
11/21/24 03:00 11/21/24 06:00 11/21/24 06:00 11/21/24 06:00 11/21/24 06:00
Intake & Output
11/19/24 11/20/24 11/21/24 11/22/24
06:59 06:59 06:59 06:59
Intake Total 1036.4 / 1036.4 864 / 864 120 / 120
Balance 1036.4 / 1036.4 864 / 864 120 / 120
Physical Exam
Physical Exam
GEN: No distress, awake, alert, oriented x3. frail appearing elderly female
HEENT: supple, anicteric, mmm, eomi
LUNGS: CTA anterolaterally B/L, no wheezes
CV: Reg, S1/S2, no murmur
EXT: No cyanosis, clubbing, edema
NEURO: Gross non-focal
SKIN: Warm, pink, dry. No rash
[2024-11-21] MEDS: VISBIOME 1 CAP PO (09:05)
[2024-11-21] MEDS: TOPROL XL 50 MG PO ×2 (09:05→20:05)
[2024-11-21] MEDS: PACERONE 200 MG PO ×2 (09:06→20:05)
[2024-11-21] MEDS: DESENEX/MITRAZOL/ZEASORB 1 APPLIC TOPICAL ×2 (09:06→20:04)
[2024-11-21] MEDS: MAGNESIUM SULFATE 50 IV (09:06)
[2024-11-21] MEDS: NSS (PRESERVATIVE FREE) 10 ML IV (09:07)
[2024-11-21] MEDS: KLONOPIN 0.25 MG PO ×2 (09:07→20:07)
[2024-11-21] MEDS: ELIQUIS 5 MG PO ×2 (09:07→20:06)
[2024-11-21] MEDS: PROTONIX IV 40 MG IV (09:07)
[2024-11-21] MEDS: REFRESH EYE DROPS (PF) 1 DROPS BOTH EYES ×2 (09:07→20:07)
[2024-11-21] MEDS: TYLENOL 650 MG PO ×2 (09:08→15:14)
--- NOTE | 2024-11-21 15:49 | PTCARENOTE ---
Patient initially refusing to get OOB. Pt stating 'I can't.' Advised patient that she has been up to the chair and that she moves well. Pt states 'no I don't.' Pt encouraged to sit on the side of the bed, which patient was able to do by herself and
then she stool and took a few steps to the chair. Pt needing guidance to square up to the chair. Pt stating multiple times 'can I sit yet.' Patient sat in the chair for about 1.25 hours and then wanted to get back into bed. Pt also stating that she
is 'uncomfortable,' in bed. Pt repositioned.
[2024-11-21] MEDS: LIPITOR 40 MG PO (17:13)
[2024-11-21] MEDS: ENTRESTO 49 MG/51 MG 1 TAB PO (20:06)
--- NOTE | 2024-11-21 21:33 | PTCARENOTE ---
transferred patient in bed to room 2117 on without issue. Gave verbal report to Yanci ALEJO. All belongings with patient.
[2024-11-21] MEDS: EFFEXOR XR 75 MG PO (22:19)
[2024-11-21] MEDS: EFFEXOR XR 37.5 MG PO (22:19)
[2024-11-21] MEDS: NEURONTIN 300 MG PO (22:20)
[2024-11-22] VITALS (7 sets, daily range): BP systolic 146–169; BP diastolic 84–105; PULSE 98; O2SAT 93
[2024-11-22] MEDS: TYLENOL 650 MG PO ×3 (03:39→21:02)
[2024-11-22 05:38] LABS: Hematocrit 36.7 % (37.0-47.0); Hemoglobin 12.3 g/dL (12.0-16.0); Mean Corp Hgb Conc. 33.5 g/dL (33.0-37.0); Mean Corpuscular Hgb 29.9 pg (27.0-31.0); Mean Corpuscular Volume 89.1 fL (81.0-99.0); Mean Platelet Volume 9.4 fL (7.4-10.4); Platelet Count 371 10^3/uL (130-400); Red Blood Cell Count 4.12 10^6/uL (4.20-5.40); Red Cell Dist. Width 13.2 % (11.5-14.5); White Blood Cell Count 13.6 10^3/uL (4.8-10.8)
[2024-11-22 06:03] LABS: Blood Urea Nitrogen 11 mg/dl (7-17); Calcium 9.3 mg/dl (8.4-10.2); Carbon Dioxide 34 mmol/L (22-30); Chloride 98 mmol/L (98-107); Estimated Creatinine Clearance 54 ml/min; Glucose 102 mg/dl (70-99); Magnesium 2.2 mg/dl (1.6-2.3); Potassium 4.2 mmol/L (3.5-5.1); Sodium 135 mmol/L (135-145); eGFR > 60.00
[2024-11-22] MEDS: FIRVANQ 125 MG PO ×3 (06:23→19:18)
[2024-11-22] MEDS: SYNTHROID 88 MCG PO (06:23)
[2024-11-22] MEDS: PROTONIX IV 40 MG IV (08:47)
[2024-11-22] MEDS: NSS (PRESERVATIVE FREE) 10 ML IV (08:48)
[2024-11-22] MEDS: ENTRESTO 49 MG/51 MG 1 TAB PO ×2 (08:49→21:00)
[2024-11-22] MEDS: PACERONE 200 MG PO (08:49)
[2024-11-22] MEDS: KLONOPIN 0.25 MG PO ×2 (08:49→21:01)
[2024-11-22] MEDS: REFRESH EYE DROPS (PF) 1 DROPS BOTH EYES ×2 (08:49→21:02)
[2024-11-22] MEDS: VITAMIN B-12 1000 MCG PO (08:50)
[2024-11-22] MEDS: VISBIOME 1 CAP PO (08:50)
[2024-11-22] MEDS: ELIQUIS 5 MG PO ×2 (08:50→21:01)
[2024-11-22] MEDS: TOPROL XL 50 MG PO ×2 (08:50→21:01)
[2024-11-22] MEDS: DESENEX/MITRAZOL/ZEASORB 1 APPLIC TOPICAL ×2 (10:08→21:02)
--- NOTE | 2024-11-22 12:04 | W.PN.HOSP.TC ---
Today's Communication/Plan
-
monitor vitals
see plan
Discharge planning
Continue with amiodarone
Assessment / Plan
Assessment / Plan
Physical Exam
General: No Apparent Distress
HEENT: Normocephalic, Atraumatic
Respiratory: Negative Wheezes
Cardiac: Regular Rhythm and S1/S2
GI: Soft and Nontender
Genito-urinary: No Costovertebral Tender
Neuro: AO x 3
Psych: Calm
56M ETOH cirrhosis here for GIB and hepatic encephalopathy complicated with aspiration pneumonia delirium
acute small bowel obstruction
Lactic acidosis from bowel obstruction
- CT: Small bowel obstruction. Suggest a transition in the midline/right para midline mid to lower anterior abdomen.
- s/p laparoscopic KATE 11/16/24
Now with small BM, NG tube out
Surgery eval appreciated diet advanced to Low Residue tolerating
- continue pain control, anti-emetics
Diarrhea
C. difficile antigen positive, toxin negative. Norovirus negative
PO vancomycin started empirically
Probiotic resumed
Diarrhea since resolved
Parox A.fib with RVR
- likely related to acute illness, lack of oral BB
- Metoprolol Amiodarone as per Cardio
- IV heparin gtt transitioned to Eliquis
- CHADVASC 5
- Echo: EF 45-50%, otherwise normal, no change since 2023
- DCA Cards eval appreciated
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
- monitor volume status closely (has received IVF)
- Metoprolol and Entresto
Non-ischemic myocardial injury in setting of Rapid A. Fib with RVR
- Trop peaked at 1.87
- Echo: EF 45-50%, otherwise normal, no change since 2023
Right upper extremity mild swelling
Has PICC line
US appreciated superficial thrombus. warm compresses
Peripheral access obtained, PICC discontinued
CAD
HLD
- ASA on hold
- Statin resumed
hypokalemia
monitor and replete as necessary
Hyponatremia
Monitor
Essential HTN
monitor
Anxiety/Depression
- Clonazepam/Venlafaxine,
- clonazepam tapered to 0.25 twice daily. cont home Effexor. IV Ativan discontinued
hypothyroidism - cont home Synthroid
GERD
- PPI
Abnormal lab value clinically insignificant; no signs of bleeding
DVT ppx: Eliquis
Code: Full
PT/OT rec SNF (especially important to reduce risk of falls while on anticoagulation as above)
Anticipated Discharge: Within 24 hours
Subjective/Interval History
-
Date of Service: November 22, 2024
Denies pain
Objective Data
-
Labs:
Laboratory Results
11/22/24
05:14
WBC 13.6 H
Hgb 12.3
Hct 36.7 L
Plt Count 371
Sodium 135
Potassium 4.2
Chloride 98
Carbon Dioxide 34 H
BUN 11
Creatinine 0.7
Glucose 102 H
Calcium 9.3
Vital Signs:
Vital Signs
Temp Pulse Resp BP Pulse Ox
97.7 F 93 18 160/85 96
11/22/24 07:35 11/22/24 07:35 11/22/24 07:35 11/22/24 07:35 11/22/24 07:35
I&O
11/21/24 11/22/24 11/23/24
06:59 06:59 06:59
Intake Total 120 / 120 770 / 770
Balance 120 / 120 770 / 770
--- NOTE | 2024-11-22 13:19 | CM ---
Patient seen at bedside
PT rec SNF
Referrals [facility] in [facility].
[facility] accepted.
Spoke with daughter Christine - will get back to CM regarding choice of which SNF
CM explained will need to get [employer] auth.
PLAN: SNF, pending bed availability, will need to obtain ins auth.
--- NOTE | 2024-11-22 18:03 | W.PN.CARDCBS ---
Today's Communication / Plan
-
Discharge planning
Reduce amiodarone to 200 mg daily related to QT
Impression / Plan
-
Primary Director Community Organization: Dr. ALIYAH Ortega
Assessment:
Presentation with abd pain, vomiting
SBO status post lap KATE on 11/16/2024
PAF with RVR, SR on telemetry, now on amiodarone
Relative hypotension associated with above
NICM with improved EF to 45% by echo 10/2023
PAF not on OAC due to prior low burden and fall risk
Coronary artery calcifications by imaging
GERD
asthma
HTN
HLD
Hypothyroidism
Mild dementia
History of chronic UTIs
History of SBO s/p KATE
Now with C. difficile
ECHO 10/2023: EF 46%, mild global hypokinesis, grade 1 diastolic dysfunction
Plan:
Overall doing well.
Plan is for rehab.
She is mildly hypertensive, but suspect as time passes that she will become more normotensive. We can add amlodipine or other agent if needed.
QT interval still prolonged, greater than 500 ms, in the setting of amiodarone I think this is probably acceptable but will decrease amiodarone to 200 mg a day.
Continue beta-robyn and Entresto. SGLT2 antagonist not indicated, spironolactone could be considered.
-Patient reports remains with pain, improving overall
-Tolerating advancing diet, no issues with PO medical therapy
-Continue postop care per surgery
-Remains in sinus rhythm on review of telemetry. Tolerating p.o. Amio and Toprol 50 mg twice daily. QT/QTc mildly increased improved with reduced dose, continue Amio 200 mg twice daily for 1 week, reduce to 200 mg daily after that
-Hemoglobin stable at 11.7. transition to OAC (Eliquis 5 mg BID - < 85y, Cr < 1.5, Wt >65kg; criteria for 5 mg dosing), DC heparin gtt
-EF 45-50% by echo 10/2023 as above. does not appear acutely volume overloaded on exam. on room air
-resume OP GDMT including entresto, atorvastatin as able; will plan to start tonight with hold parameters. she is not candidate for SGLT2 inhibitor due to history of chronic UTIs
-d/w nursing
Progress Note - Director Community Organization
Subjective
Date of Service: November 22, 2024:
Current medications: P.o. vancomycin, aspirin 81 mg a day, atorvastatin 40 mg a day, colecalciferol, B12, gabapentin, levothyroxine, Entresto 49/51 twice daily, Effexor, Gemtesa 75 a day, pantoprazole 40 IV daily, Klonopin, metoprolol ER 50 twice
daily, amiodarone 200 twice daily, apixaban 5 mg twice daily
158/86, pulse 98, resp rate 18, afebrile, sats 93%
White count 13.6, hemoglobin 12.3, bicarb 34, BUN/creatinine 11 and 0.7, potassium 4.2
EKG yesterday, sinus rhythm, PVCs, QTc is 502 but with slightly widened QRS
Objective
Labs:
11/22/24 05:14
11/22/24 05:14
Labs
Hgb 12.3 g/dL (12.0-16.0) 11/22/24 05:14
Hct 36.7 % (37.0-47.0) L 11/22/24 05:14
Plt Count 371 10^3/uL (130-400) 11/22/24 05:14
APTT Cancelled 11/21/24 06:00
Sodium 135 mmol/L (135-145) 11/22/24 05:14
Potassium 4.2 mmol/L (3.5-5.1) 11/22/24 05:14
BUN 11 mg/dl (7-17) 11/22/24 05:14
Creatinine 0.7 mg/dL (0.6-1.0) 11/22/24 05:14
Glucose 102 mg/dl (70-99) H 11/22/24 05:14
Vital Signs and I&O:
Vital Signs
Temp Pulse Resp BP Pulse Ox
36.9 C 98 18 158/86 93
11/22/24 15:50 11/22/24 15:50 11/22/24 15:50 11/22/24 15:50 11/22/24 15:50
Vital Signs
Temp Pulse Resp BP Pulse Ox
36.9 C 98 18 158/86 93
11/22/24 15:50 11/22/24 15:50 11/22/24 15:50 11/22/24 15:50 11/22/24 15:50
Intake & Output
11/20/24 11/21/24 11/22/24 11/23/24
07:59 07:59 07:59 07:59
Intake Total 864 / 864 120 / 120 770 / 770 300 / 300
Balance 864 / 864 120 / 120 770 / 770 300 / 300
Physical Exam
Physical Exam
See above
[2024-11-22] MEDS: LIPITOR 40 MG PO (19:18)
[2024-11-22] MEDS: NEURONTIN 300 MG PO (20:59)
[2024-11-22] MEDS: EFFEXOR XR 37.5 MG PO (21:00)
[2024-11-22] MEDS: EFFEXOR XR 75 MG PO (21:00)
[2024-11-23] MEDS: FIRVANQ 125 MG PO ×5 (01:05→22:51)
[2024-11-23 03:53] VITALS: BP 147/99
[2024-11-23] MEDS: SYNTHROID 88 MCG PO (06:39)
[2024-11-23 07:01] LABS: Hematocrit 36.8 % (37.0-47.0); Mean Corp Hgb Conc. 32.6 g/dL (33.0-37.0); Mean Corpuscular Hgb 29.6 pg (27.0-31.0); Mean Corpuscular Volume 90.9 fL (81.0-99.0); Mean Platelet Volume 9.6 fL (7.4-10.4); Platelet Count 407 10^3/uL (130-400); Red Blood Cell Count 4.05 10^6/uL (4.20-5.40); Red Cell Dist. Width 13.3 % (11.5-14.5); White Blood Cell Count 18.1 10^3/uL (4.8-10.8)
[2024-11-23 07:28] LABS: Blood Urea Nitrogen 14 mg/dl (7-17); Calcium 9.6 mg/dl (8.4-10.2); Carbon Dioxide 32 mmol/L (22-30); Chloride 96 mmol/L (98-107); Estimated Creatinine Clearance 54 ml/min; Glucose 98 mg/dl (70-99); Phosphorus 4.2 mg/dl (2.5-4.5); Potassium 4.2 mmol/L (3.5-5.1); Sodium 134 mmol/L (135-145); eGFR > 60.00
[2024-11-23 07:35] VITALS: BP 162/87
--- NOTE | 2024-11-23 08:24 | W.PN.CARDCBS ---
Today's Communication / Plan
-
Increase metoprolol ER to 75 mg twice daily
We will arrange for outpatient cardiac follow-up
Will sign off, please call if questions
Impression / Plan
-
Primary Turret Lathe Tender: Dr. ALIYAH Ortega
Assessment:
Presentation with abd pain, vomiting
SBO status post lap KATE on 11/16/2024
PAF with RVR, SR on telemetry, now on amiodarone
Relative hypotension associated with above
NICM with improved EF to 45% by echo 10/2023
PAF not on OAC due to prior low burden and fall risk
Coronary artery calcifications by imaging
GERD
asthma
HTN
HLD
Hypothyroidism
Mild dementia
History of chronic UTIs
History of SBO s/p KATE
Now with C. difficile
ECHO 10/2023: EF 46%, mild global hypokinesis, grade 1 diastolic dysfunction
Plan:
She remains stable from a cardiac standpoint, in sinus rhythm, heart rate is typically in the 90s occasionally above 100 on amiodarone 200 mg daily and metoprolol ER 50 mg twice daily.
She is somewhat hypertensive still. Related to this and also related to relative tachycardia we will increase metoprolol ER from 50 mg twice daily to 75 mg twice daily.
Continue amiodarone. QTc is acceptable.
Continue discharge planning. From my standpoint, she no longer require quires inpatient care.
We will arrange outpatient cardiac follow-up
We will sign off, please call if questions.
Progress Note - Turret Lathe Tender
Subjective
Date of Service: November 23, 2024:
Current medications: Atorvastatin, gabapentin, levothyroxine, Entresto 49/51 twice daily, Effexor, Farhan Meli, pantoprazole, Klonopin, metoprolol ER 50 mg twice daily, p.o. vancomycin, apixaban 5 mg daily, amiodarone 200 mg a day
147/99, pulse 90, respirations 18, afebrile, head neck exam unremarkable, lungs are clear, regular rate and rhythm, abdomen benign, extremities without clubbing sinus or edema
White count 18.1, hemoglobin 12.0, CO2 32, BUN and creatinine 14 and 0.7
Objective
Labs:
11/23/24 06:20
11/23/24 06:20
Labs
Hgb 12.0 g/dL (12.0-16.0) 11/23/24 06:20
Hct 36.8 % (37.0-47.0) L 11/23/24 06:20
Plt Count 407 10^3/uL (130-400) H 11/23/24 06:20
APTT Cancelled 11/21/24 06:00
Sodium 134 mmol/L (135-145) L 11/23/24 06:20
Potassium 4.2 mmol/L (3.5-5.1) 11/23/24 06:20
BUN 14 mg/dl (7-17) 11/23/24 06:20
Creatinine 0.7 mg/dL (0.6-1.0) 11/23/24 06:20
Glucose 98 mg/dl (70-99) 11/23/24 06:20
Vital Signs and I&O:
Vital Signs
Temp Pulse Resp BP Pulse Ox
36.6 C 90 18 147/99 95
11/23/24 03:53 11/23/24 03:53 11/23/24 03:53 11/23/24 03:53 11/23/24 03:53
Vital Signs
Temp Pulse Resp BP Pulse Ox
36.6 C 90 18 147/99 95
11/23/24 03:53 11/23/24 03:53 11/23/24 03:53 11/23/24 03:53 11/23/24 03:53
Intake & Output
11/21/24 11/22/24 11/23/24 11/24/24
07:59 07:59 07:59 07:59
Intake Total 120 / 120 770 / 770 780 / 780
Balance 120 / 120 770 / 770 780 / 780
Physical Exam
Physical Exam
See above
[2024-11-23] MEDS: KLONOPIN 0.25 MG PO ×2 (09:01→19:08)
[2024-11-23] MEDS: ELIQUIS 5 MG PO ×2 (09:06→19:08)
[2024-11-23] MEDS: REFRESH EYE DROPS (PF) 1 DROPS BOTH EYES ×2 (09:07→19:11)
[2024-11-23] MEDS: VISBIOME 1 CAP PO (09:07)
[2024-11-23] MEDS: TOPROL XL 50 MG PO (09:07)
[2024-11-23] MEDS: ENTRESTO 49 MG/51 MG 1 TAB PO ×2 (09:07→19:08)
[2024-11-23] MEDS: NSS (PRESERVATIVE FREE) 10 ML IV (09:08)
[2024-11-23] MEDS: PROTONIX IV 40 MG IV (09:08)
[2024-11-23] MEDS: DESENEX/MITRAZOL/ZEASORB 1 APPLIC TOPICAL ×2 (09:08→19:11)
[2024-11-23] MEDS: PACERONE 200 MG PO (09:10)
--- NOTE | 2024-11-23 11:24 | W.PN.HOSP.TC ---
Today's Communication/Plan
-
Monitor vitals
See plan
Monitor leukocytosis
Metoprolol increased
Continue with amiodarone
Discharge planning
Assessment / Plan
Assessment / Plan
Physical Exam
General: No Apparent Distress
HEENT: Normocephalic, Atraumatic
Respiratory: Negative Wheezes
Cardiac: Regular Rhythm and S1/S2
GI: Soft and Nontender
Genito-urinary: No Costovertebral Tender
Neuro: AO x 3
Psych: Calm
56M ETOH cirrhosis here for GIB and hepatic encephalopathy complicated with aspiration pneumonia delirium
acute small bowel obstruction
Lactic acidosis from bowel obstruction
- CT: Small bowel obstruction. Suggest a transition in the midline/right para midline mid to lower anterior abdomen.
- s/p laparoscopic KATE 11/16/24
Now with small BM, NG tube out
Surgery eval appreciated diet advanced to Low Residue tolerating
- continue pain control, anti-emetics
Leukocytosis noted, continue to monitor
Diarrhea
C. difficile antigen positive, toxin negative. Norovirus negative
PO vancomycin started empirically
Probiotic resumed
Diarrhea since resolved
Parox A.fib with RVR
- likely related to acute illness, lack of oral BB
- Metoprolol Amiodarone as per Cardio
- IV heparin gtt transitioned to Eliquis
- CHADVASC 5
- Echo: EF 45-50%, otherwise normal, no change since 2023
- DCA Cards eval appreciated
Amiodarone decreased to 200 mg daily
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
- monitor volume status closely (has received IVF)
- Metoprolol and Entresto
Non-ischemic myocardial injury in setting of Rapid A. Fib with RVR
- Trop peaked at 1.87
- Echo: EF 45-50%, otherwise normal, no change since 2023
Right upper extremity mild swelling
Has PICC line
US appreciated superficial thrombus. warm compresses
Peripheral access obtained, PICC discontinued
CAD
HLD
- ASA on hold
- Statin resumed
hypokalemia
monitor and replete as necessary
Hyponatremia
Monitor
Essential HTN
monitor
Anxiety/Depression
- Clonazepam/Venlafaxine,
- clonazepam tapered to 0.25 twice daily. cont home Effexor. IV Ativan discontinued
hypothyroidism - cont home Synthroid
GERD
- PPI
Abnormal lab value clinically insignificant; no signs of bleeding
DVT ppx: Eliquis
Code: Full
PT/OT rec SNF (especially important to reduce risk of falls while on anticoagulation as above)
Anticipated Discharge: Within 24 hours
Subjective/Interval History
-
Date of Service: November 23, 2024
Denies pain
Objective Data
-
Labs:
Laboratory Results
11/23/24
06:20
WBC 18.1 H
Hgb 12.0
Hct 36.8 L
Plt Count 407 H
Sodium 134 L
Potassium 4.2
Chloride 96 L
Carbon Dioxide 32 H
BUN 14
Creatinine 0.7
Glucose 98
Calcium 9.6
Vital Signs:
Vital Signs
Temp Pulse Resp BP Pulse Ox
98.2 F 92 16 162/87 94
11/23/24 07:35 11/23/24 07:35 11/23/24 07:35 11/23/24 07:35 11/23/24 07:35
I&O
11/22/24 11/23/24 11/24/24
06:59 06:59 06:59
Intake Total 770 / 770 780 / 780
Balance 770 / 770 780 / 780
[2024-11-23 11:30] VITALS: BP 147/77
[2024-11-23 15:45] VITALS: BP 144/82
--- NOTE | 2024-11-23 16:05 | CM ---
Reviewed the chart notes and spoke with the patient at the bedside. IMM reviewed. TAVO spoke with the patient's sister Christine via telephone. Discussed that [facility] and [facility] have accepted the patient. Christine selected [facility]. TAVO
spoke with the patient's other daughter Ирина who is also in agreement with [facility]. TAVO spoke with Blanca from [facility]. She will sent NPIs need in [facility]. CM continues to be available to patient/family and is monitoring medical plan for
needs at discharge.
Plan: Discharge to [facility] when medically stable. Precert will be required.
[2024-11-23] MEDS: LIPITOR 40 MG PO (16:22)
[2024-11-23 19:07] VITALS: BP 165/85
[2024-11-23] MEDS: TYLENOL 650 MG PO (19:08)
[2024-11-23] MEDS: TOPROL XL 75 MG PO (19:10)
[2024-11-23] MEDS: OCEAN, SALINE MIST 1 SPRAYS NASAL ×2 (20:34→22:49)
[2024-11-23] MEDS: EFFEXOR XR 75 MG PO (22:47)
[2024-11-23] MEDS: NEURONTIN 300 MG PO (22:47)
[2024-11-23] MEDS: EFFEXOR XR 37.5 MG PO (22:48)
[2024-11-23 23:32] VITALS: BP 135/73
[2024-11-24 03:15] VITALS: BP 146/78
[2024-11-24] MEDS: SYNTHROID 88 MCG PO (04:33)
[2024-11-24] MEDS: FIRVANQ 125 MG PO ×2 (04:33→12:10)
[2024-11-24 05:09] VITALS: BMI 26.3
[2024-11-24 06:40] LABS: Hematocrit 38.4 % (37.0-47.0); Hemoglobin 12.4 g/dL (12.0-16.0); Mean Corp Hgb Conc. 32.3 g/dL (33.0-37.0); Mean Corpuscular Hgb 29.5 pg (27.0-31.0); Mean Corpuscular Volume 91.4 fL (81.0-99.0); Mean Platelet Volume 9.4 fL (7.4-10.4); Platelet Count 455 10^3/uL (130-400); Red Cell Dist. Width 13.4 % (11.5-14.5); White Blood Cell Count 16.6 10^3/uL (4.8-10.8)
[2024-11-24 06:59] LABS: Blood Urea Nitrogen 17 mg/dl (7-17); Calcium 9.3 mg/dl (8.4-10.2); Carbon Dioxide 34 mmol/L (22-30); Chloride 95 mmol/L (98-107); Estimated Creatinine Clearance 47 ml/min; Glucose 97 mg/dl (70-99); Magnesium 1.9 mg/dl (1.6-2.3); Phosphorus 3.6 mg/dl (2.5-4.5); Potassium 4.2 mmol/L (3.5-5.1); Sodium 134 mmol/L (135-145); eGFR > 60.00
[2024-11-24 07:45] VITALS: BP 128/85
[2024-11-24] MEDS: KLONOPIN 0.25 MG PO (08:51)
[2024-11-24] MEDS: ENTRESTO 49 MG/51 MG 1 TAB PO (08:53)
[2024-11-24] MEDS: NSS (PRESERVATIVE FREE) 10 ML IV (08:53)
[2024-11-24] MEDS: ELIQUIS 5 MG PO (08:53)
[2024-11-24] MEDS: PROTONIX IV 40 MG IV (08:53)
[2024-11-24] MEDS: VISBIOME 1 CAP PO (08:54)
[2024-11-24] MEDS: TOPROL XL 75 MG PO (08:54)
[2024-11-24] MEDS: VITAMIN B-12 1000 MCG PO (08:54)
[2024-11-24] MEDS: PACERONE 200 MG PO (08:55)
[2024-11-24] MEDS: REFRESH EYE DROPS (PF) 1 DROPS BOTH EYES (08:55)
[2024-11-24] MEDS: FLUSH (NSS) 1 FLUSH IV (08:57)
[2024-11-24] MEDS: DESENEX/MITRAZOL/ZEASORB 1 APPLIC TOPICAL (09:05)
[2024-11-24 11:17] VITALS: BP 136/75
--- NOTE | 2024-11-24 11:25 | W.PN.HOSP.TC ---
Addendum entered and electronically signed by Mik Palencia MD 11/24/24 13:34:
Insurance Auth obtained. Discharge today
Time of discharge 38 minutes
Original Note:
Today's Communication/Plan
-
Monitor vital signs see plan
Leukocytosis noted, continue to monitor
PT/OT
Discharge planning
Continue amiodarone
Assessment / Plan
Assessment / Plan
Physical Exam
General: No Apparent Distress
HEENT: Normocephalic, Atraumatic
Respiratory: Negative Wheezes
Cardiac: Regular Rhythm and S1/S2
GI: Soft and Nontender
Genito-urinary: No Costovertebral Tender
Neuro: AO x 3
Psych: Calm
56M ETOH cirrhosis here for GIB and hepatic encephalopathy complicated with aspiration pneumonia delirium
acute small bowel obstruction
Lactic acidosis from bowel obstruction
- CT: Small bowel obstruction. Suggest a transition in the midline/right para midline mid to lower anterior abdomen.
- s/p laparoscopic KATE 11/16/24
Now with small BM, NG tube out
Surgery eval appreciated diet advanced to Low Residue tolerating
- continue pain control, anti-emetics
Leukocytosis noted, continue to monitor
Diarrhea
C. difficile antigen positive, toxin negative. Norovirus negative
PO vancomycin started empirically
Probiotic resumed
Diarrhea since resolved
Parox A.fib with RVR
- likely related to acute illness, lack of oral BB
- Metoprolol Amiodarone as per Cardio
- IV heparin gtt transitioned to Eliquis
- CHADVASC 5
- Echo: EF 45-50%, otherwise normal, no change since 2023
- DCA Cards eval appreciated
Amiodarone decreased to 200 mg daily
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
- monitor volume status closely (has received IVF)
- Metoprolol and Entresto
Non-ischemic myocardial injury in setting of Rapid A. Fib with RVR
- Trop peaked at 1.87
- Echo: EF 45-50%, otherwise normal, no change since 2023
Right upper extremity mild swelling
Has PICC line
US appreciated superficial thrombus. warm compresses
Peripheral access obtained, PICC discontinued
CAD
HLD
- ASA on hold
- Statin resumed
hypokalemia
monitor and replete as necessary
Hyponatremia
Monitor
Essential HTN
monitor
Anxiety/Depression
- Clonazepam/Venlafaxine,
- clonazepam tapered to 0.25 twice daily. cont home Effexor. IV Ativan discontinued
hypothyroidism - cont home Synthroid
GERD
- PPI
Abnormal lab value clinically insignificant; no signs of bleeding
DVT ppx: Eliquis
Code: Full
PT/OT rec SNF (especially important to reduce risk of falls while on anticoagulation as above)
Anticipated Discharge: Within 24 hours
Subjective/Interval History
-
Date of Service: November 24, 2024
Denies nausea
Objective Data
-
Labs:
Laboratory Results
11/24/24
06:05
WBC 16.6 H
Hgb 12.4
Hct 38.4
Plt Count 455 H
Sodium 134 L
Potassium 4.2
Chloride 95 L
Carbon Dioxide 34 H
BUN 17
Creatinine 0.8
Glucose 97
Calcium 9.3
Vital Signs:
Vital Signs
Temp Pulse Resp BP Pulse Ox
98.5 F 93 18 136/75 96
11/24/24 11:17 11/24/24 11:17 11/24/24 11:17 11/24/24 11:17 11/24/24 11:17
I&O
0211/24/24 11/25/24
06:59 06:59 06:59
Intake Total 780 / 780 1200 / 1200
Balance 780 / 780 1200 / 1200
--- NOTE | 2024-11-24 13:28 | CM ---
Reviewed the chart notes. Auth for [facility] obtained via [employer]. Approved for period 11/24-11/30; # [id number]. Provided auth info to admissions. Patient's daughter Christine updated.
Plan: [facility] today.
Call report to: [phone] ext [phone]
Fax report to: [phone]
Medical and transport forms on chart.
--- NOTE | 2024-11-24 13:40 | W.DCSUMMARY ---
Discharge Summary
Discharge Data
Date of Admission: 11/11/24
Date of Discharge: 11/24/24
-
Pending Results: No
Hospital Course
79-year-old female with past medical history of essential hypertension, anxiety/depression, hypothyroidism, GERD, CAD, hyperlipidemia, paroxysmal atrial fibrillation came to the hospital with abdominal pain and nausea and vomiting. Patient was
diagnosed with acute small bowel obstruction. Patient was seen by surgery throughout hospitalization. CT scan was consistent with small bowel obstruction. Patient underwent laparoscopic lysis of adhesion on this hospitalization by general
surgery. Over time patient's symptoms continue to improve and she was able to tolerate low residue diet prior to discharge. She also had some diarrhea on this hospitalization where C. difficile antigen was positive however toxin was negative.
Given her symptoms she was treated with p.o. vancomycin prophylactically. For her atrial fibrillation she was seen by cardiology and was started on amiodarone along with metoprolol. She was initially on IV heparin which was later transitioned to
p.o. Eliquis prior to discharge. Cardiology instructed patient to follow-up with them outpatient. On echocardiogram she had a EF of 45-50%. Patient was also evaluated by physical therapy who recommended SNF. Once her symptoms continue to
improve, she was then discharged to rehab with instructions to follow-up with all her physicians outpatient.
Discharge Plan
-
Patient Disposition: Care Home/SNF
Discharge Diagnosis/Procedures: Acute small bowel obstruction status post surgery
Diarrhea with C. difficile antigen positive, toxin negative
Paroxysmal atrial fibrillation with rapid ventricular rate
Nonischemic myocardial injury
SVT
Nonischemic cardiomyopathy
Anxiety/depression
Diet: Low Residue
Activity: With assistance and As tolerated
Driving Restrictions: Not until seen by your Dr
Bathing Restrictions: None
Blood Work: CBC and BMP next week at rehab
Activity Restrictions/Additional Instructions:
Continue oral vancomycin for 4 more days
Referrals:
Kerry Mata MD [Family Provider] - in less than 1 week
Lamont Ortega MD [Active] - 12/27/24 12:40 pm (You have an appt to see Dr. Ortega's nurse practitioner, Nazanin, at the [place] office on 12/27/24 at 12:40 PM. Please call [phone] if you need to reschedule.)
Prescriptions:
New
clonazepam 0.5 mg Tablet
0.25 mg PO BID Qty: 4 0RF
Eliquis 5 mg Tablet
5 mg PO BID Qty: 0 0RF
acetaminophen 325 mg Tablet
650 mg PO Q6HPRN PRN (Reason: mild pain/ fever>100.5F) Qty: 0 0RF
amiodarone 200 mg Tablet
200 mg PO DAILY Qty: 0 0RF
metoprolol succinate 50 mg Tablet Extended Release 24 Hr
75 mg PO BID Qty: 0 0RF
vancomycin 50 mg/mL Recon Soln
125 mg PO Q6 4 Days Qty: 40 0RF
Continued
atorvastatin [Lipitor] 40 mg Tablet
40 mg PO QPM
pantoprazole [Protonix] 40 mg Tablet,Delayed Release (Dr/Ec)
40 mg PO DAILY
cyanocobalamin (vitamin B-12) 1,000 mcg Capsule
1,000 mcg PO Q48H
levothyroxine 88 mcg tablet
88 mcg PO DAILY
Antifungal gel
1 applic topical DAILYPRN PRN (Reason: under breasts/behind ear)
venlafaxine 37.5 mg Capsule,Extended Release 24hr
37.5 mg PO HS
Rx Instructions:
take with 75mg for total of 112.5mg
venlafaxine 75 mg Capsule,Extended Release 24hr
75 mg PO HS
Rx Instructions:
take with 37.5mg for total of 112.5mg
gabapentin 300 mg Capsule
300 mg PO HS
Systane (PF) 0.4-0.3 % Dropperette
1 drp BOTH EYES BID
cholecalciferol (vitamin D3) [Vitamin D3] 25 mcg (1,000 unit) Tablet
25 mcg PO DAILY
Visbiome 112.5 billion cell Capsule
1 cap PO DAILY
sacubitril-valsartan [Entresto] 49-51 mg Tablet
1 tab PO BID
Gemtesa 75 mg Tablet
75 mg PO DAILY
d-mannose 500 mg Capsule
500 mg PO BID
Discontinued
aspirin 81 MG tablet,delayed release (DR/EC)
81 mg PO DAILY
clonazepam 0.5 mg Tablet
0.5 mg PO BID
metoprolol succinate 100 mg Tablet Extended Release 24 Hr
100 mg PO BID
Discharge Orders:
Discharge Patient (As Directed); Ordered 11/24/24
Ordered By: Mik Palencia
Discharge Date and Time
Discharge Date/Time: 11/24/24 17:00
Print Language: BHUTANESE
[2024-11-24] MEDS: FLUAD (65 yr+) 2024-2025 FORMULA 0.5 ML IM (14:30)
[2024-11-24 15:47] VITALS: BP 142/80
--- NOTE | 2024-11-24 17:00 | PTCARENOTE ---
pt discharged to [facility] via ambulance at 1700. this RN attempted x 2 to call nursing report -no answer. transition of care provided.
== END 2024-11-24 17:00 | DRG 336 ==
LOC: 2 SOUTH 17:59
PROVIDERS: Emergency Medicine; Internal Medicine; Nurse Practitioner Family; Physician Assistant; Surgery; ADMITTING PHYSICIAN Student in an Organized Health Care Education/Training Program; ATTENDING PHYSICIAN Internal Medicine; CONSULT PHYSICIAN Internal Medicine Cardiovascular Disease; EMERGENCY PHYSICIAN Emergency Medicine; OTHER PHYSICIAN Surgery
PROC: 02HV33Z Insertion of Infusion Device into Superior Vena Cava, Percutaneous Approach (ICD-10-PCS; 2024-11-13)
PROC: B5181ZA Fluoroscopy of Superior Vena Cava using Low Osmolar Contrast, Guidance (ICD-10-PCS; 2024-11-13)
PROC: 0DNU4ZZ Release Omentum, Percutaneous Endoscopic Approach (ICD-10-PCS; 2024-11-16)
PROC: 0DNB4ZZ Release Ileum, Percutaneous Endoscopic Approach (ICD-10-PCS; 2024-11-16)
PROC: 3E02340 Introduction of Influenza Vaccine into Muscle, Percutaneous Approach (ICD-10-PCS; 2024-11-24)
DX: K56.52 Intestinal adhesions [bands] with complete obstruction (principal); A04.72 Enterocolitis due to Clostridium difficile, not specified as recurrent; E87.20 Acidosis, unspecified; I50.22 Chronic systolic (congestive) heart failure; I5A Non-ischemic myocardial injury (non-traumatic); E87.1 Hypo-osmolality and hyponatremia; F03.A4 Unspecified dementia, mild, with anxiety; F03.A3 Unspecified dementia, mild, with mood disturbance; N17.9 Acute kidney failure, unspecified; I42.8 Other cardiomyopathies; I47.10 Supraventricular tachycardia, unspecified; I82.611 Acute embolism and thrombosis of superficial veins of right upper extremity; Z90.710 Acquired absence of both cervix and uterus; I11.0 Hypertensive heart disease with heart failure; I48.0 Paroxysmal atrial fibrillation; I25.10 Atherosclerotic heart disease of native coronary artery without angina pectoris; E03.9 Hypothyroidism, unspecified; K21.9 Gastro-esophageal reflux disease without esophagitis; E78.5 Hyperlipidemia, unspecified; Z90.49 Acquired absence of other specified parts of digestive tract; Z87.891 Personal history of nicotine dependence; Z88.5 Allergy status to narcotic agent; Z79.82 Long term (current) use of aspirin; Z79.890 Hormone replacement therapy; D72.829 Elevated white blood cell count, unspecified; E87.6 Hypokalemia; F32.A Depression, unspecified; K22.9 Disease of esophagus, unspecified; N32.81 Overactive bladder; E86.0 Dehydration; J45.909 Unspecified asthma, uncomplicated; M16.0 Bilateral primary osteoarthritis of hip; M79.7 Fibromyalgia; Z87.440 Personal history of urinary (tract) infections; Z23 Encounter for immunization
CPT/HCPCS: 71045; 74018; 74177; 74250; 80048; 80053; 83605; 83690; 83735; 83880; 84100; 84484; 85025; 85027; 85730; 87040; 87324; 87449; 87798; 90662; 93005; 93306; 93971; 96361; 96374; 96375; 97116; 97163; 97167; 97530; 97535; 99285; C1776; G0008; Q9967

== ENCOUNTER → 2025-03-18 08:58 | Outpatient (REF) | payer MEDICARE, SELFPAY | LOC: RAD 08:58 | PROVIDERS: ATTENDING PHYSICIAN Physician Assistant | DX: M79.604 Pain in right leg (principal); M25.551 Pain in right hip; M54.2 Cervicalgia; G89.29 Other chronic pain; M54.6 Pain in thoracic spine; M54.50 Low back pain, unspecified | CPT/HCPCS: 72050; 72072; 72110; 73502; 73552 ==